=== PATIENT | female | born 1940 | race African-American/Black ===

== ENCOUNTER 2017-03-17 12:13 | Inpatient (IN) | payer OTHER ==
[~2017-03-17] VITALS: Ht 162.6 cm; Wt 81.6 kg
[2017-03-17] MEDS ORDERED: ACETAMINOPHEN 500 MG TABLET PO ONE (12:30)
[2017-03-17] MEDS ORDERED: IV NORMAL SALINE 1000ML BAG 1,000 ML IV ONE (12:30)
[2017-03-17 12:33] LABS: BILIRUBIN,URINE NEGATIVE (NEG); GLUCOSE,URINE NEGATIVE (NEG); NITRITE,URINE POSITIVE (NEG); PH,URINE 7.5; PROTEIN,URINE 30 mg/dL (NEG-TRACE)
--- NOTE | 2017-03-17 12:33 | PHYS DOC ---
Past Medical History Past Medical History: Diabetes-Type II, Other Additional Past Medical Histor: MS Past Surgical History: Appendectomy, Cholecystectomy, Hysterectomy Alcohol Use: None Drug Use: None Adult General Chief Complaint Chief Complaint: WEAKNESS/GENERALIZED HPI HPI Patient is a 77 year old female who presents with history of multiple sclerosis one-day history of increased general weakness and fever; denies any nausea vomiting diarrhea; denies cough shortness of breath; does have an indwelling Bñauelos catheter this was changed 3 days ago. PCP: ? Opole ? Neuro: Denis Review of Systems Review of Systems Constitutional: Denies fever or chills [] Eyes: Denies change in visual acuity, redness, or eye pain [] HENT: Denies nasal congestion or sore throat [] Respiratory: Denies cough or shortness of breath [] Cardiovascular: No additional information not addressed in HPI [] GI: Denies abdominal pain, nausea, vomiting, bloody stools or diarrhea [] : Denies dysuria or hematuria [] Musculoskeletal: Denies back pain or joint pain [] Integument: Denies rash or skin lesions [] Neurologic: Denies headache, focal weakness or sensory changes [] Endocrine: Denies polyuria or polydipsia [] All other systems were reviewed and found to be within normal limits, except as documented in this note. Current Medications Current Medications Current Medications Medications (Trade) Dose Ordered Sig/Claudio Start Time Stop Time Status Last Admin Dose Admin Acetaminophen (Tylenol) 1,000 mg 1X ONCE 03/17/17 12:30 03/17/17 12:31 DC 03/17/17 13:21 1,000 MG Ceftriaxone Sodium 50 ml @ 100 mls/hr 1X ONCE 03/17/17 13:30 03/17/17 13:59 Morphine Sulfate 2 mg PRN Q2HR PRN 03/17/17 13:30 03/18/17 13:29 Ondansetron HCl (Zofran) 4 mg PRN Q8HRS PRN 03/17/17 13:30 03/18/17 13:29 Sodium Chloride 1,000 ml @ 1,000 mls/hr 1X ONCE 03/17/17 12:30 03/17/17 13:29 DC Allergies Allergies Allergies Coded Allergies Type Severity Reaction Last Updated Verified amoxicillin Allergy Mild ITCH 03/17/17 Yes Physical Exam Physical Exam Constitutional: Well developed, well nourished, no acute distress, non-toxic appearance. [] HENT: Normocephalic, atraumatic, bilateral external ears normal, oropharynx moist, no oral exudates, nose normal. [] Eyes: PERRLA, EOMI, conjunctiva normal, no discharge. [] Neck: Normal range of motion, no tenderness, supple, no stridor. [] Cardiovascular:Heart regular rhythm, no murmur; Tachycardia[] Lungs & Thorax: Bilateral breath sounds clear to auscultation [] Abdomen: Bowel sounds normal, soft, no tenderness, no masses, no pulsatile masses. [] Skin: Warm, dry, no erythema, no rash. [] Back: No tenderness, no CVA tenderness. [] Extremities: No tenderness, no cyanosis, no clubbing, ROM intact, no edema. [] Neurologic: Alert and oriented X 3, normal motor function except some baseline weakness in the lower extremities left greater than right, normal sensory function, no focal deficits noted. [] Psychologic: Affect normal, judgement normal, mood normal. [] Current Patient Data Vital Signs Vital Signs Date Time Temp Pulse Resp B/P (MAP) Pulse Ox O2 Delivery O2 Flow Rate FiO2 03/17/17 12:45 115 20 97 03/17/17 12:19 100.5 146/72 (96) Room Air 100.5 Lab Values Laboratory Tests Test 03/17/17 12:22 03/17/17 12:50 03/17/17 13:20 Urine Collection Type U cath Urine Color Yellow Urine Clarity Cloudy Urine pH 7.5 Urine Specific [place] 1.020 Urine Protein 30 mg/dL (NEG-TRACE) Urine Glucose (UA) Negative mg/dL (NEG) Urine Ketones (Stick) Negative mg/dL (NEG) Urine Blood Small (NEG) Urine Nitrite Positive (NEG) Urine Bilirubin Negative (NEG) Urine Urobilinogen Dipstick 1.0 mg/dL (0.2 mg/dL) Urine Leukocyte Esterase Large (NEG) Urine RBC 3-5 /HPF (0-2) Urine WBC >40 /HPF (0-4) Urine Transitional Epithelial Cells Occ /LPF Urine Bacteria Many /HPF (0-FEW) Sodium Level 138 mmol/L (136-145) Potassium Level 3.8 mmol/L (3.5-5.1) Chloride Level 102 mmol/L (98-107) Carbon Dioxide Level 27 mmol/L (21-32) Anion Gap 9 (6-14) Blood Urea Nitrogen 15 mg/dL (7-20) Creatinine 0.9 mg/dL (0.6-1.0) Estimated GFR (Cockcroft-Gault) 73.7 BUN/Creatinine Ratio 17 (6-20) Glucose Level 171 mg/dL (70-99) H Lactic Acid Level 3.2 mmol/L (0.4-2.0) H Calcium Level 9.2 mg/dL (8.5-10.1) Total Bilirubin 0.3 mg/dL (0.2-1.0) Aspartate Amino Transferase (AST) 20 U/L (15-37) Alanine Aminotransferase (ALT) 20 U/L (14-59) Alkaline Phosphatase 79 U/L (46-116) Total Protein 7.4 g/dL (6.4-8.2) Albumin 3.0 g/dL (3.4-5.0) L Albumin/Globulin Ratio 0.7 (1.0-1.7) L White Blood Count 10.8 x10^3/uL (4.0-11.0) Red Blood Count 4.58 x10^6/uL (3.50-5.40) Hemoglobin 12.7 g/dL (12.0-15.5) Hematocrit 40.2 % (36.0-47.0) Mean Corpuscular Volume 88 fL (79-100) Mean Corpuscular Hemoglobin 28 pg (25-35) Mean Corpuscular Hemoglobin Concent 32 g/dL (31-37) Red Cell Distribution Width 14.5 % (11.5-14.5) Platelet Count 262 x10^3/uL (140-400) Neutrophils (%) (Auto) 92 % (31-73) H Lymphocytes (%) (Auto) 4 % (24-48) L Monocytes (%) (Auto) 3 % (0-9) Eosinophils (%) (Auto) 2 % (0-3) Basophils (%) (Auto) 0 % (0-3) Neutrophils # (Auto) 9.9 x10^3uL (1.8-7.7) H Lymphocytes # (Auto) 0.4 x10^3/uL (1.0-4.8) L Monocytes # (Auto) 0.3 x10^3/uL (0.0-1.1) Eosinophils # (Auto) 0.2 x10^3/uL (0.0-0.7) Basophils # (Auto) 0.0 x10^3/uL (0.0-0.2) Platelet Estimate Pending Laboratory Tests 03/17/17 13:20 Laboratory Tests 03/17/17 12:50 EKG EKG EKG sinus tachycardia rate 115 no STEMI QTC 431 my interpretation[] Radiology/Procedures Radiology/Procedures Chest x-ray no priors for comparison apparent elevated right hemidiaphragm no evidence of heart failure my interpretation[] Course & Med Decision Making Course & Med Decision Making Pertinent Labs and Imaging studies reviewed. (See chart for details) Labs demonstrated findings consistent with urinary tract infection. No pneumonia seen. Patient given IV fluids and Rocephin IV. Discussed case with the hospitalist Dr. Willson who agrees to admit the patient.[] Dragon Disclaimer Dragon Disclaimer This electronic medical record was generated, in whole or in part, using a voice recognition dictation system. Departure Departure Impression: Primary Impression: UTI (urinary tract infection) Additional Impressions: Fever Multiple sclerosis exacerbation Disposition: ADMITTED INPATIENT Admitting Physician: Other Condition: STABLE Problem Qualifiers ANASTASIA PEDRAZA MD Mar 17, 2017 12:33
[2017-03-17 12:40] LABS: BACTERIA,URINE MANY /HPF (0-FEW); WBC,URINE >40 /HPF (0-4)
--- NOTE | 2017-03-17 12:48 | RAD ---
Single AP chest radiograph 03/17/2017 Clinical indication: Fever, weakness Comparison: None. Findings: Mild elevation of the right hemidiaphragm. Cardiac and mediastinal silhouettes are within normal limits. There is mild bibasal atelectasis. No pleural effusion or pneumothorax Impression: Elevation of the right hemidiaphragm without evidence of consolidating pneumonia.
[2017-03-17 13:15] LABS: CALCIUM 9.2 mg/dL (8.5-10.1); CREATININE 0.9 mg/dL (0.6-1.0); GFR 73.7; POTASSIUM 3.8 mmol/L (3.5-5.1)
[2017-03-17 13:28] LABS: ALBUMIN/GLOBULIN RATIO 0.7 (1.0-1.7); TOTAL BILIRUBIN 0.3 mg/dL (0.2-1.0); TOTAL PROTEIN 7.4 g/dL (6.4-8.2)
[2017-03-17] MEDS ORDERED: MORPHINE SULFATE 4 MG/ML DISP.SYRIN. IV PRN (13:30)
[2017-03-17] MEDS ORDERED: ONDANSETRON PF 4 MG/2 ML VIAL. IV PRN (13:30)
[2017-03-17 13:31] LABS: BASO % 0 % (0-3); EOS % 2 % (0-3); HEMATOCRIT 40.2 % (36.0-47.0); HEMOGLOBIN 12.7 g/dL (12.0-15.5); LYMPH # 0.4 x10^3/uL (1.0-4.8); LYMPH % 4 % (24-48); MEAN CORPUSCULAR HEMOGLOBIN 28 pg (25-35); MEAN CORPUSCULAR HGB CONC 32 g/dL (31-37); MEAN CORPUSCULAR VOLUME 88 fL (79-100); MONO % 3 % (0-9); NEUT % 92 % (31-73); PLATELET COUNT 262 x10^3/uL (140-400); RED BLOOD COUNT 4.58 x10^6/uL (3.50-5.40); RED CELL DISTRIBUTION WIDTH 14.5 % (11.5-14.5); WHITE BLOOD COUNT 10.8 x10^3/uL (4.0-11.0)
--- NOTE | 2017-03-17 13:58 | EKG ---
[facility] [address] [place] [address] Test Date: 2017-03-17 Test Time: 13:09:03 Pat Name: MARVIN VARMA Department: Room: Gender: F [employer] Technician: : 1940 Requested By: ANASTASIA PEDRAZA Order Number: [id number] Reading MD: Dom Murray MD Measurements Intervals [place] Rate: 115 P: 26 NV: 166 QRS: 52 QRSD: 90 T: 29 QT: 310 QTc: 431 Interpretive Statements SINUS TACHYCARDIA NON-SPECIFIC ST/T CHANGES Electronically Signed On 03-17-2017 15:36:52 DIRECTOR DATABASE by Dom Murray MD
[2017-03-17] MEDS ORDERED: DEXTROSE 50% 25 GM / 50ML DISP.SYRIN. IV PRN (15:00)
[2017-03-17 15:30] VITALS: BP 123/72
[2017-03-17] MEDS ORDERED: METF500T4 PO (15:44)
[2017-03-17] MEDS ORDERED: MIRA50TA PO (15:45)
[2017-03-17] MEDS ORDERED: BACL10TA PO (15:45)
[2017-03-17] MEDS ORDERED: SOLI10TA2 PO (15:45)
[2017-03-17] MEDS ORDERED: ATOR10TA60 PO (15:46)
[2017-03-17] MEDS ORDERED: OMEP20CA9 PO (15:46)
[2017-03-17] MEDS ORDERED: ALLO100T PO (15:46)
[2017-03-17] MEDS: metFORMIN 500 MG TABLET PO SCH (17:04)
--- NOTE | 2017-03-17 17:17 | HP ---
ADMIT DATE: 03/17/2017 CHIEF COMPLAINT: Generalized weakness, confusion. HISTORY OF PRESENT ILLNESS: The patient is a 77-year-old -[place] woman with history of multiple sclerosis and resultant suprapubic catheter, who presented to the Emergency Room with her family with increased confusion. She relates that she was not feeling well yesterday. Apparently had a fever of 103 last night and this morning "did not make sense" to her family. She does not recall further details. She feels much better now, but is not sure of her memory as to events or distant medical issues. PAST MEDICAL HISTORY: Diabetes mellitus, multiple sclerosis, suprapubic catheter x 2 years. PAST SURGICAL HISTORY: She is status post appendectomy, cholecystectomy, hysterectomy. FAMILY HISTORY: Two brothers are fairly healthy. SOCIAL HISTORY: Lives with her family and no toxic habits. ALLERGIES: AMOXICILLIN. HOME MEDICATIONS: MAR reconciled with home meds. REVIEW OF SYSTEMS: The patient denies any pelvic pain. Denies any nausea, vomiting, diarrhea. Denies any shortness of breath or cough. Rest of organ system review is likewise unrevealing. PHYSICAL EXAMINATION: VITAL SIGNS: Show a blood pressure of 123/72, heart rate of 104, respiratory rate at 18. Of note, tachycardia at admit of 120 and temperature of 100.5 are noted. GENERAL: This is a 77-year-old well-nourished -[place] woman, alert and oriented, in no acute distress. HEENT: Shows no scleral icterus. NECK: Supple. LUNGS: Clear. HEART: Mildly tachycardic. No murmurs appreciated. ABDOMEN: Positive bowel sounds, suprapubic catheter in the pelvis. EXTREMITIES: Show decreased muscle mass. SKIN: Warm, soft and dry. LABORATORY DATA: CBC with a WBC of 10.8, hemoglobin 12.7, platelets of 262. Differential with 92% neutrophils. Chemistries with a BUN and creatinine of 15 and 0.9, normal electrolytes, glucose at 171. LFTs within normal, albumin 3.0. Lactate 3.2. Urine with greater than 40 WBC and many bacteria. Imaging studies with a chest x-ray shows elevation of the right hemidiaphragm without evidence of consolidating pneumonia. ASSESSMENT AND PLAN: The patient is a 77-year-old woman with multiple sclerosis and resultant suprapubic catheter placement, who now presents with fevers. In absence of any other infectious source, pyuria is more likely the sign of infection rather than just colonization. We will treat her with broad spectrum antibiotics as she has had previous infections with gram-negative rods. We will await culture for determination of final antibiotic regimen. I will place on IV fluids. Cautiously she does have secondary prevention medications on her list although is unaware of any heart history. Monitor her vital signs including temperature closely. She will have Tylenol p.r.n. for fevers over 100.4. We will continue all her other home medications in the meantime. PRIYA PEREZ MD DR: CALLIE/nts JOB#: [id number] / [id number] LUCY
[2017-03-17 17:45] LABS: % EOS 1 % (0-5); OVALOCYTES OCC; PLT ESTIMATE ADEQUATE (ADEQUATE); POLYCHROMASIA SLIGHT
[2017-03-17 19:00] VITALS: BP 113/62
[2017-03-17] MEDS: OXYBUTYNIN CHLORIDE 5 MG TABLET PO SCH (20:36)
[2017-03-17] MEDS: BACLOFEN 10 MG TABLET. PO SCH (20:36)
[2017-03-17 23:00] VITALS: BP 125/64
[2017-03-17] MEDS: POTASSIUM CL 20MEQ D5-0.45NACL 1,000 ML IV SCH (23:45)
[2017-03-18 03:57] VITALS: BP 139/76
[2017-03-18 07:00] VITALS: BP 123/72
[2017-03-18] MEDS: ALLOPURINOL 100 MG TABLET. PO SCH (07:46)
[2017-03-18] MEDS: ATORVASTATIN CALCIUM 10 MG TABLET. PO SCH (07:46)
[2017-03-18] MEDS: OXYBUTYNIN CHLORIDE 5 MG TABLET PO SCH ×3 (07:46→21:38)
[2017-03-18] MEDS: BACLOFEN 10 MG TABLET. PO SCH ×3 (07:46→21:38)
[2017-03-18] MEDS: metFORMIN 500 MG TABLET PO SCH ×2 (07:46→16:05)
[2017-03-18] MEDS: PANTOPRAZOLE 40 MG TABLET.DR. PO SCH (07:46)
[2017-03-18] MEDS ORDERED: NON FORMULARY ITEM (Mirabegron (Myrbetriq) 50 MG) PO SCH (09:00)
[2017-03-18] MEDS ORDERED: CEFEPIME HCL 1 GM in IV DEXTROSE 5% 50 ML IV SCH (09:15)
--- NOTE | 2017-03-18 09:15 | PDOC ---
PROGRESS NOTES Chief Complaint Chief Complaint Fever ASSESSMENT AND PLAN: 1. Suspected UTI: complicated with suprapubic cath in place. broadspectrum Abx empirically until culture results available. d/w Dr Simon 2. Sepsis: fever, tachycardia persisting. no hypotension. recheck lactate 3. Leukocytosis: borderline w/o L shift. reacive, monitor 4. Encephalopathy: toxic from urosepsis. much improved 5. DM2: well controlled on oral home regimen 6. HLD: on statin 7. MS: no meds History of Present Illness History of Present Illness sitting in chair, feels better, clearer thinking Vitals Vitals Vital Signs Date Time Temp Pulse Resp B/P (MAP) Pulse Ox O2 Delivery O2 Flow Rate FiO2 03/18/17 07:24 Room Air 03/18/17 07:00 99.3 94 16 123/72 (89) 97 99.3 Physical Exam General: Alert, Oriented X3, Cooperative, No acute distress Heart: Regular rate Lungs: Clear Abdomen: Normal bowel sounds Extremities: Other (no edema. arthritic changes) Skin: No rashes Labs LABS Laboratory Tests Test 03/17/17 12:22 03/17/17 12:50 03/17/17 13:20 03/17/17 18:44 Urine Collection Type U cath Urine Color Yellow Urine Clarity Cloudy Urine pH 7.5 Urine Specific [place] 1.020 Urine Protein 30 mg/dL (NEG-TRACE) Urine Glucose (UA) Negative mg/dL (NEG) Urine Ketones (Stick) Negative mg/dL (NEG) Urine Blood Small (NEG) Urine Nitrite Positive (NEG) Urine Bilirubin Negative (NEG) Urine Urobilinogen Dipstick 1.0 mg/dL (0.2 mg/dL) Urine Leukocyte Esterase Large (NEG) Urine RBC 3-5 /HPF (0-2) Urine WBC >40 /HPF (0-4) Urine Transitional Epithelial Cells Occ /LPF Urine Bacteria Many /HPF (0-FEW) Sodium Level 138 mmol/L (136-145) Potassium Level 3.8 mmol/L (3.5-5.1) Chloride Level 102 mmol/L (98-107) Carbon Dioxide Level 27 mmol/L (21-32) Anion Gap 9 (6-14) Blood Urea Nitrogen 15 mg/dL (7-20) Creatinine 0.9 mg/dL (0.6-1.0) Estimated GFR (Cockcroft-Gault) 73.7 BUN/Creatinine Ratio 17 (6-20) Glucose Level 171 mg/dL (70-99) Lactic Acid Level 3.2 mmol/L (0.4-2.0) Calcium Level 9.2 mg/dL (8.5-10.1) Total Bilirubin 0.3 mg/dL (0.2-1.0) Aspartate Amino Transf (AST/SGOT) 20 U/L (15-37) Alanine Aminotransferase (ALT/SGPT) 20 U/L (14-59) Alkaline Phosphatase 79 U/L (46-116) Troponin I Quantitative < 0.017 ng/mL (0.000-0.055) Total Protein 7.4 g/dL (6.4-8.2) Albumin 3.0 g/dL (3.4-5.0) Albumin/Globulin Ratio 0.7 (1.0-1.7) White Blood Count 10.8 x10^3/uL (4.0-11.0) Red Blood Count 4.58 x10^6/uL (3.50-5.40) Hemoglobin 12.7 g/dL (12.0-15.5) Hematocrit 40.2 % (36.0-47.0) Mean Corpuscular Volume 88 fL (79-100) Mean Corpuscular Hemoglobin 28 pg (25-35) Mean Corpuscular Hemoglobin Concent 32 g/dL (31-37) Red Cell Distribution Width 14.5 % (11.5-14.5) Platelet Count 262 x10^3/uL (140-400) Neutrophils (%) (Auto) 92 % (31-73) Lymphocytes (%) (Auto) 4 % (24-48) Monocytes (%) (Auto) 3 % (0-9) Eosinophils (%) (Auto) 2 % (0-3) Basophils (%) (Auto) 0 % (0-3) Neutrophils # (Auto) 9.9 x10^3uL (1.8-7.7) Lymphocytes # (Auto) 0.4 x10^3/uL (1.0-4.8) Monocytes # (Auto) 0.3 x10^3/uL (0.0-1.1) Eosinophils # (Auto) 0.2 x10^3/uL (0.0-0.7) Basophils # (Auto) 0.0 x10^3/uL (0.0-0.2) Segmented Neutrophils % 92 % (35-66) Lymphocytes % 6 % (24-48) Monocytes % 1 % (0-10) Eosinophils % 1 % (0-5) Platelet Estimate Adequate (ADEQUATE) Large Platelets Occ Polychromasia Slight Ovalocytes Occ Glucose (Fingerstick) 139 mg/dL (70-99) Test 03/17/17 20:18 03/18/17 07:07 Glucose (Fingerstick) 151 mg/dL (70-99) 150 mg/dL (70-99) PRIYA PEREZ MD Mar 18, 2017 09:15
--- NOTE | 2017-03-18 09:33 | PDOC ---
Infectious Disease Note ROS ROS Vital Sign Vital Signs Vital Signs Date Time Temp Pulse Resp B/P (MAP) Pulse Ox O2 Delivery O2 Flow Rate FiO2 03/18/17 07:24 Room Air 03/18/17 07:00 99.3 94 16 123/72 (89) 97 99.3 Labs Lab Laboratory Tests Test 03/17/17 12:22 03/17/17 12:50 03/17/17 13:20 03/17/17 18:44 Urine Collection Type U cath Urine Color Yellow Urine Clarity Cloudy Urine pH 7.5 Urine Specific [place] 1.020 Urine Protein 30 mg/dL (NEG-TRACE) Urine Glucose (UA) Negative mg/dL (NEG) Urine Ketones (Stick) Negative mg/dL (NEG) Urine Blood Small (NEG) Urine Nitrite Positive (NEG) Urine Bilirubin Negative (NEG) Urine Urobilinogen Dipstick 1.0 mg/dL (0.2 mg/dL) Urine Leukocyte Esterase Large (NEG) Urine RBC 3-5 /HPF (0-2) Urine WBC >40 /HPF (0-4) Urine Transitional Epithelial Cells Occ /LPF Urine Bacteria Many /HPF (0-FEW) Sodium Level 138 mmol/L (136-145) Potassium Level 3.8 mmol/L (3.5-5.1) Chloride Level 102 mmol/L (98-107) Carbon Dioxide Level 27 mmol/L (21-32) Anion Gap 9 (6-14) Blood Urea Nitrogen 15 mg/dL (7-20) Creatinine 0.9 mg/dL (0.6-1.0) Estimated GFR (Cockcroft-Gault) 73.7 BUN/Creatinine Ratio 17 (6-20) Glucose Level 171 mg/dL (70-99) Lactic Acid Level 3.2 mmol/L (0.4-2.0) Calcium Level 9.2 mg/dL (8.5-10.1) Total Bilirubin 0.3 mg/dL (0.2-1.0) Aspartate Amino Transf (AST/SGOT) 20 U/L (15-37) Alanine Aminotransferase (ALT/SGPT) 20 U/L (14-59) Alkaline Phosphatase 79 U/L (46-116) Troponin I Quantitative < 0.017 ng/mL (0.000-0.055) Total Protein 7.4 g/dL (6.4-8.2) Albumin 3.0 g/dL (3.4-5.0) Albumin/Globulin Ratio 0.7 (1.0-1.7) White Blood Count 10.8 x10^3/uL (4.0-11.0) Red Blood Count 4.58 x10^6/uL (3.50-5.40) Hemoglobin 12.7 g/dL (12.0-15.5) Hematocrit 40.2 % (36.0-47.0) Mean Corpuscular Volume 88 fL (79-100) Mean Corpuscular Hemoglobin 28 pg (25-35) Mean Corpuscular Hemoglobin Concent 32 g/dL (31-37) Red Cell Distribution Width 14.5 % (11.5-14.5) Platelet Count 262 x10^3/uL (140-400) Neutrophils (%) (Auto) 92 % (31-73) Lymphocytes (%) (Auto) 4 % (24-48) Monocytes (%) (Auto) 3 % (0-9) Eosinophils (%) (Auto) 2 % (0-3) Basophils (%) (Auto) 0 % (0-3) Neutrophils # (Auto) 9.9 x10^3uL (1.8-7.7) Lymphocytes # (Auto) 0.4 x10^3/uL (1.0-4.8) Monocytes # (Auto) 0.3 x10^3/uL (0.0-1.1) Eosinophils # (Auto) 0.2 x10^3/uL (0.0-0.7) Basophils # (Auto) 0.0 x10^3/uL (0.0-0.2) Segmented Neutrophils % 92 % (35-66) Lymphocytes % 6 % (24-48) Monocytes % 1 % (0-10) Eosinophils % 1 % (0-5) Platelet Estimate Adequate (ADEQUATE) Large Platelets Occ Polychromasia Slight Ovalocytes Occ Glucose (Fingerstick) 139 mg/dL (70-99) Test 03/17/17 20:18 03/18/17 07:07 Glucose (Fingerstick) 151 mg/dL (70-99) 150 mg/dL (70-99) Objective Assessment Fever Lactic acidosis UTI - POA Amoxicillin allergy - rash Acute Encephalopathy - better DM MS Plan Plan of Care States suprapubic changed last week but depending on cultures may need to be changed again Despite improvement she is at risk for resistance will begin Cefepime and Zyvox F/u labs and cults d/w micro at cult in progress D/w Dr. Willson Thank you # [phone] SARHA DE LA TORRE MD Mar 18, 2017 09:33
[2017-03-18] MEDS: CEFEPIME HCL IV Push 1 GM VIAL. IVP SCH ×3 (09:44→21:38)
[2017-03-18] MEDS: LINEZOLID 600 MG TABLET PO SCH ×2 (09:44→21:38)
[2017-03-18 09:53] LABS: BASO % 0 % (0-3); EOS % 2 % (0-3); HEMATOCRIT 37.9 % (36.0-47.0); HEMOGLOBIN 12.2 g/dL (12.0-15.5); LYMPH # 0.9 x10^3/uL (1.0-4.8); LYMPH % 13 % (24-48); MEAN CORPUSCULAR HEMOGLOBIN 28 pg (25-35); MEAN CORPUSCULAR HGB CONC 32 g/dL (31-37); MEAN CORPUSCULAR VOLUME 87 fL (79-100); MONO % 8 % (0-9); NEUT % 77 % (31-73); PLATELET COUNT 232 x10^3/uL (140-400); RED BLOOD COUNT 4.34 x10^6/uL (3.50-5.40); RED CELL DISTRIBUTION WIDTH 14.2 % (11.5-14.5); WHITE BLOOD COUNT 6.9 x10^3/uL (4.0-11.0)
[2017-03-18 10:00] LABS: ALBUMIN 2.8 g/dL (3.4-5.0); ALBUMIN/GLOBULIN RATIO 0.7 (1.0-1.7); CALCIUM 8.6 mg/dL (8.5-10.1); CREATININE 0.9 mg/dL (0.6-1.0); GFR 73.7; POTASSIUM 3.9 mmol/L (3.5-5.1); TOTAL BILIRUBIN 0.3 mg/dL (0.2-1.0)
[2017-03-18 11:00] VITALS: BP 120/70
[2017-03-18] MEDS: POTASSIUM CL 20MEQ D5-0.45NACL 1,000 ML IV SCH (16:06)
[2017-03-18 16:36] VITALS: BP 106/59
[2017-03-18 19:00] VITALS: BP 101/65
[2017-03-18 23:27] VITALS: BP 105/64
[2017-03-19] VITALS (11 sets, daily range): BP systolic 64–131; BP diastolic 48–77
--- NOTE | 2017-03-19 05:19 | CONS ---
DATE OF CONSULTATION: LOCATION: Room 672. REQUESTING PHYSICIAN: Dr. Willson. REASON FOR CONSULTATION: UTI. HISTORY OF PRESENT ILLNESS: The patient is a very pleasant 77-year-old female with a history of diabetes as well as multiple sclerosis. She does have a suprapubic catheter that was placed at , she states she has had it for several years and it was changed last week without any incident. This past Thursday, she states she was feeling fairly well, but then became acutely ill, had a temperature of 100.8 at home and complained of chills. She denied any headache, no sinus issues, no sore throat or cough or chest pain. No nausea, no vomiting, no diarrhea, dysuria, no rash, there was no joint inflammation. Then, she does not remember much, but she became acutely confused and was brought to [facility] on 03/17/2017. She had a white count of 10.8, but had 92% neutrophils. Creatinine was 0.9, glucose was 171. However, she had a lactic acid of 3.2. Urinalysis was concerning for urinary tract infection. Chest x-ray was performed, had some elevation of right hemidiaphragm without evidence of pneumonia. She was given a dose of Rocephin, placed on IV fluids and admitted to the hospital. This morning, the patient is alert, states she is feeling better. She has eaten some breakfast and denies any further complications. PAST MEDICAL HISTORY: Positive for diabetes, she is unable to state how long she has had this. Also, there is a longstanding history of multiple sclerosis and the suprapubic catheter. PAST SURGICAL HISTORY: Positive for appendectomy, cholecystectomy, hysterectomy, and the suprapubic catheter placement. REVIEW OF SYSTEMS: Otherwise negative except for mentioned above. ALLERGIES: LISTED AMOXICILLIN, WHICH CAUSES A RASH. SOCIAL HISTORY: She is . No tobacco, no alcohol. She has no pets at home. FAMILY HISTORY: She believes her father had some type of thyroid disease, but denies any other complications. She denies any diabetes within the family. CURRENT MEDICATIONS: She did receive a dose of Rocephin, allopurinol, Lipitor, baclofen, metformin, Protonix. Other meds are available and reviewed in the chart. PHYSICAL EXAMINATION: VITAL SIGNS: T-max has been 100.5, currently 99.3, pulse 94, respirations 16, blood pressure 123/72, satting 97% on room air. CONSTITUTIONAL: She is a very pleasant lady. She is in no acute distress. She appears comfortable, sitting upright in bed. HEENT: She has normal conjunctivae. Oral cavity, oropharynx was clear. NECK: Supple, no JVD. LUNGS: Clear to auscultation bilaterally. HEART: S1, S2. ABDOMEN: Soft, nontender, nondistended. Suprapubic without signs of any complications surrounding it. There is no pain. There is no erythema. EXTREMITIES: No clubbing or cyanosis. No gross edema. SKIN: Warm to touch without signs of rash. NEUROLOGIC: Her psychiatric affect was very pleasant. LABORATORY DATA: White count 10.8, hemoglobin 12.7, platelets 262, segs were 92, lymphs were 6. Glucose 150. Again, lactic acid was 3.2. Urinalysis concerning for urinary tract infection. Chest x-ray reviewed in the history of present illness. IMPRESSION: 1. Fever. 2. Lactic acidosis. 3. Urinary tract infection present on admission. 4. AMOXICILLIN ALLERGY, CAUSES RASH. 5. Acute encephalopathy has improved. 6. Diabetes. 7. Multiple sclerosis. RECOMMENDATIONS: The patient typically goes to for her care; this is her first time here. She believes she has had urinary tract infections in the past; however, she cannot remember any particular organisms like a staph or a strep or an E. coli. Again, she thought that her suprapubic was changed last week. I called Microbiology this morning and the cultures are in progress. She seems to have improved, but continues to have low-grade fevers and she is likely at risk for resistant bacteria, therefore we will change to cefepime as well as Zyvox and follow up on her labs and cultures. Dr. Willson, thank you for allowing us to participate in this patient's care. Should you have further questions, please do not hesitate to contact me. I did discuss with Dr. Willson. SARAH DE LA TORRE MD DR: KERLINE/eleanor JOB#: [id number] / [id number]
[2017-03-19 06:49] LABS: BASO % 0 % (0-3); EOS % 3 % (0-3); HEMATOCRIT 35.9 % (36.0-47.0); HEMOGLOBIN 11.5 g/dL (12.0-15.5); LYMPH # 1.6 x10^3/uL (1.0-4.8); LYMPH % 23 % (24-48); MEAN CORPUSCULAR HEMOGLOBIN 28 pg (25-35); MEAN CORPUSCULAR HGB CONC 32 g/dL (31-37); MEAN CORPUSCULAR VOLUME 87 fL (79-100); MONO % 10 % (0-9); NEUT % 65 % (31-73); PLATELET COUNT 196 x10^3/uL (140-400); RED BLOOD COUNT 4.11 x10^6/uL (3.50-5.40); RED CELL DISTRIBUTION WIDTH 14.4 % (11.5-14.5); WHITE BLOOD COUNT 6.9 x10^3/uL (4.0-11.0)
[2017-03-19 06:54] LABS: CALCIUM 8.8 mg/dL (8.5-10.1); CREATININE 0.9 mg/dL (0.6-1.0); GFR 73.7; POTASSIUM 4.3 mmol/L (3.5-5.1)
[2017-03-19] MEDS: CEFEPIME HCL IV Push 1 GM VIAL. IVP SCH (08:44)
[2017-03-19] MEDS: BACLOFEN 10 MG TABLET. PO SCH ×4 (08:59→21:45)
[2017-03-19] MEDS: PANTOPRAZOLE 40 MG TABLET.DR. PO SCH (08:59)
[2017-03-19] MEDS: LINEZOLID 600 MG TABLET PO SCH (08:59)
[2017-03-19] MEDS: OXYBUTYNIN CHLORIDE 5 MG TABLET PO SCH ×4 (08:59→21:45)
[2017-03-19] MEDS: metFORMIN 500 MG TABLET PO SCH ×2 (08:59→17:43)
[2017-03-19] MEDS: ALLOPURINOL 100 MG TABLET. PO SCH (08:59)
--- NOTE | 2017-03-19 10:07 | PDOC ---
Infectious Disease Note Subjective Subjective Better. Had a good a breakfast Feels back to baseline ROS ROS GEN: Denies fevers, chills, sweats HEENT: Denies blurred vision, sore throat CV: Denies chest pain RESP: Denies shortness of air, cough GI: Denies n/v/d Suprapubic NEURO: Denies confusion, dizziness Vital Sign Vital Signs Vital Signs Date Time Temp Pulse Resp B/P (MAP) Pulse Ox O2 Delivery O2 Flow Rate FiO2 03/19/17 07:31 Room Air 03/19/17 07:00 98.1 97 16 98/56 (70) 96 98.1 Physical Exam PHYSICAL EXAM GENERAL: NAD, Alert HEENT: PERRL, OC/OP - clear NECK: Supple, no JVD, no LN LUNGS: Clear HEART: S1S2, no gallop, no murmur ABD: Soft, NT, no organomegaly, no rebound Suprapubic EXT: Trace LUE edema, no cyanosis TIMBER FALLER: Alert, oriented x 3, no focal neurologic deficit SKIN: No rash IV: ok Labs Lab Laboratory Tests Test 03/18/17 11:40 03/18/17 17:03 03/19/17 05:50 03/19/17 07:11 Glucose (Fingerstick) 178 mg/dL (70-99) 204 mg/dL (70-99) 141 mg/dL (70-99) White Blood Count 6.9 x10^3/uL (4.0-11.0) Red Blood Count 4.11 x10^6/uL (3.50-5.40) Hemoglobin 11.5 g/dL (12.0-15.5) Hematocrit 35.9 % (36.0-47.0) Mean Corpuscular Volume 87 fL (79-100) Mean Corpuscular Hemoglobin 28 pg (25-35) Mean Corpuscular Hemoglobin Concent 32 g/dL (31-37) Red Cell Distribution Width 14.4 % (11.5-14.5) Platelet Count 196 x10^3/uL (140-400) Neutrophils (%) (Auto) 65 % (31-73) Lymphocytes (%) (Auto) 23 % (24-48) Monocytes (%) (Auto) 10 % (0-9) Eosinophils (%) (Auto) 3 % (0-3) Basophils (%) (Auto) 0 % (0-3) Neutrophils # (Auto) 4.5 x10^3uL (1.8-7.7) Lymphocytes # (Auto) 1.6 x10^3/uL (1.0-4.8) Monocytes # (Auto) 0.7 x10^3/uL (0.0-1.1) Eosinophils # (Auto) 0.2 x10^3/uL (0.0-0.7) Basophils # (Auto) 0.0 x10^3/uL (0.0-0.2) Sodium Level 139 mmol/L (136-145) Potassium Level 4.3 mmol/L (3.5-5.1) Chloride Level 104 mmol/L (98-107) Carbon Dioxide Level 26 mmol/L (21-32) Anion Gap 9 (6-14) Blood Urea Nitrogen 14 mg/dL (7-20) Creatinine 0.9 mg/dL (0.6-1.0) Estimated GFR (Cockcroft-Gault) 73.7 Glucose Level 129 mg/dL (70-99) Calcium Level 8.8 mg/dL (8.5-10.1) Objective Assessment Fever - better Lactic acidosis UTI - POA Amoxicillin allergy - rash Acute Encephalopathy - better DM MS Plan Plan of Care d/w micro - cult with multiple organisms. Was improving with Rocephin Dose Rocephin now. need to avoid quinolones as exacerbates MS for can d/c home on Bactrim DS to start 03/20 for 7 days Welcome to F/u in ID office in one week [phone] D/w SARAH Ingram MD Mar 19, 2017 10:07
[2017-03-19] MEDS: cefTRIAXone IV Push 1 GM VIAL. IVP SCH (12:42)
[2017-03-19] MEDS ORDERED: ONDANSETRON PF 4 MG/2 ML VIAL. IV PRN (13:15)
--- NOTE | 2017-03-19 14:18 | PDOC ---
PROGRESS NOTES Chief Complaint Chief Complaint Fever ASSESSMENT AND PLAN: 1. Suspected UTI: complicated with suprapubic cath in place. broadspectrum Abx empirically until culture results available. d/w Dr Simon 2. Sepsis: fever, tachycardia persisting. no hypotension. recheck lactate 3. Leukocytosis: borderline w/o L shift. reactive, monitor 4. Encephalopathy: toxic from urosepsis. much improved 5. DM2: well controlled on oral home regimen 6. HLD: on statin 7. MS: no meds meeting w/ pt and family: agreeable to acute rehab. will arrange in AM History of Present Illness History of Present Illness feels fien. needs max assist with transfer Vitals Vitals Vital Signs Date Time Temp Pulse Resp B/P (MAP) Pulse Ox O2 Delivery O2 Flow Rate FiO2 03/19/17 11:00 98.2 103 16 105/69 (81) 98 Room Air 98.2 Physical Exam General: Alert, Oriented X3, Cooperative, No acute distress Heart: Regular rate Lungs: Clear Abdomen: Normal bowel sounds Extremities: Other (no edema. arthritic changes) Skin: No rashes Labs LABS Laboratory Tests Test 03/18/17 17:03 03/19/17 05:50 03/19/17 07:11 03/19/17 12:01 Glucose (Fingerstick) 204 mg/dL (70-99) 141 mg/dL (70-99) 122 mg/dL (70-99) White Blood Count 6.9 x10^3/uL (4.0-11.0) Red Blood Count 4.11 x10^6/uL (3.50-5.40) Hemoglobin 11.5 g/dL (12.0-15.5) Hematocrit 35.9 % (36.0-47.0) Mean Corpuscular Volume 87 fL (79-100) Mean Corpuscular Hemoglobin 28 pg (25-35) Mean Corpuscular Hemoglobin Concent 32 g/dL (31-37) Red Cell Distribution Width 14.4 % (11.5-14.5) Platelet Count 196 x10^3/uL (140-400) Neutrophils (%) (Auto) 65 % (31-73) Lymphocytes (%) (Auto) 23 % (24-48) Monocytes (%) (Auto) 10 % (0-9) Eosinophils (%) (Auto) 3 % (0-3) Basophils (%) (Auto) 0 % (0-3) Neutrophils # (Auto) 4.5 x10^3uL (1.8-7.7) Lymphocytes # (Auto) 1.6 x10^3/uL (1.0-4.8) Monocytes # (Auto) 0.7 x10^3/uL (0.0-1.1) Eosinophils # (Auto) 0.2 x10^3/uL (0.0-0.7) Basophils # (Auto) 0.0 x10^3/uL (0.0-0.2) Sodium Level 139 mmol/L (136-145) Potassium Level 4.3 mmol/L (3.5-5.1) Chloride Level 104 mmol/L (98-107) Carbon Dioxide Level 26 mmol/L (21-32) Anion Gap 9 (6-14) Blood Urea Nitrogen 14 mg/dL (7-20) Creatinine 0.9 mg/dL (0.6-1.0) Estimated GFR (Cockcroft-Gault) 73.7 Glucose Level 129 mg/dL (70-99) Calcium Level 8.8 mg/dL (8.5-10.1) PRIYA PEREZ MD Mar 19, 2017 14:18
[2017-03-19] MEDS: POTASSIUM CL 20MEQ D5-0.45NACL 1,000 ML IV SCH (14:30)
--- NOTE | 2017-03-19 21:55 | EKG ---
[facility] [address] [place] [address] Test Date: 2017-03-19 Test Time: 21:50:43 Pat Name: MARVIN VARMA Department: Room: 2 1 Gender: F Timekeeper: MYRNA : 1940 Requested By: PRIYA PEREZ Order Number: [id number] Reading MD: Dom Murray MD Measurements Intervals [place] Rate: 126 P: 59 OR: 110 QRS: 113 QRSD: 94 T: 41 QT: 310 QTc: 449 Interpretive Statements SINUS TACHYCARDIA ABNORMAL RIGHT AXIS DEVIATION CONSISTENT WITH WALLY-SEPTAL INFARCT Electronically Signed On 03-23-2017 14:10:33 X RAY TECHNOLOGIST by Dom Murray MD
[2017-03-19 22:06] LABS: BASO % 0 % (0-3); EOS % 4 % (0-3); HEMATOCRIT 37.7 % (36.0-47.0); LYMPH # 3.4 x10^3/uL (1.0-4.8); LYMPH % 37 % (24-48); MEAN CORPUSCULAR HEMOGLOBIN 28 pg (25-35); MEAN CORPUSCULAR HGB CONC 32 g/dL (31-37); MEAN CORPUSCULAR VOLUME 89 fL (79-100); MONO % 8 % (0-9); NEUT % 51 % (31-73); PLATELET COUNT 228 x10^3/uL (140-400); RED BLOOD COUNT 4.23 x10^6/uL (3.50-5.40); RED CELL DISTRIBUTION WIDTH 14.3 % (11.5-14.5); WHITE BLOOD COUNT 9.3 x10^3/uL (4.0-11.0)
[2017-03-19 22:19] LABS: CALCIUM 8.9 mg/dL (8.5-10.1); CREATININE 1.1 mg/dL (0.6-1.0); GFR 58.4; POTASSIUM 4.6 mmol/L (3.5-5.1)
[2017-03-19 22:24] LABS: ALBUMIN 2.9 g/dL (3.4-5.0); ALBUMIN/GLOBULIN RATIO 0.8 (1.0-1.7); TOTAL BILIRUBIN 0.2 mg/dL (0.2-1.0); TOTAL PROTEIN 6.6 g/dL (6.4-8.2)
[2017-03-19] MEDS ORDERED: NOREPINEPHRIN PREMIX 250 ML IV ONE (23:14)
--- NOTE | 2017-03-19 23:41 | PDOC ---
PROGRESS NOTES Subjective Subjective Code blue called earlier for no pulse, chest compressions started, pt lethargic and not responsive, reported 1 compression given, and pt responded, very light pulse very low BP Dr. Colunga arrived, IV fluids given 2 liters, and transferred to ICU, pressures still low in ICU, cont IV fluids, start low dose levaphed, and BP jumped up to 131/80 pt awake now and talkative and reports feeling well transferred to ICU, critical care initiated troponin elevation, consult CV consider central line if BP not improved, cont IV fluids at 200 restart the zyvox that was stopped earlier, ID consult following Objective Objective Vital Signs Date Time Temp Pulse Resp B/P (MAP) Pulse Ox O2 Delivery O2 Flow Rate FiO2 03/19/17 19:00 98.2 106 18 109/70 (83) 98 Room Air 98.2 Intake and Output 03/19/17 07:00 Intake Total 550 ml Output Total 1400 ml Balance -850 ml Intake Oral 550 ml Output Urine Total 1400 ml # Bowel Movements 1 Physical Exam Heart: Regular rate, No murmurs General: Alert, Cooperative, mild distress HEENT: Atraumatic, PERRLA Psych/Mental Status: Mental status NL, Mood NL Assessment Assessment Problems Medical Problems: (1) Fever Status: Acute (2) Multiple sclerosis exacerbation Status: Acute (3) UTI (urinary tract infection) Status: Acute Plan Plan of Care ICu care change Abx BP support and IV fluid discussed with Dr. Colunga, and RN Comment Review of Relevant I have reviewed the following items kenan (where applicable) has been applied. Labs Laboratory Tests Test 03/18/17 07:07 03/18/17 09:25 03/18/17 11:40 03/18/17 17:03 Glucose (Fingerstick) 150 mg/dL (70-99) 178 mg/dL (70-99) 204 mg/dL (70-99) White Blood Count 6.9 x10^3/uL (4.0-11.0) Red Blood Count 4.34 x10^6/uL (3.50-5.40) Hemoglobin 12.2 g/dL (12.0-15.5) Hematocrit 37.9 % (36.0-47.0) Mean Corpuscular Volume 87 fL (79-100) Mean Corpuscular Hemoglobin 28 pg (25-35) Mean Corpuscular Hemoglobin Concent 32 g/dL (31-37) Red Cell Distribution Width 14.2 % (11.5-14.5) Platelet Count 232 x10^3/uL (140-400) Neutrophils (%) (Auto) 77 % (31-73) Lymphocytes (%) (Auto) 13 % (24-48) Monocytes (%) (Auto) 8 % (0-9) Eosinophils (%) (Auto) 2 % (0-3) Basophils (%) (Auto) 0 % (0-3) Neutrophils # (Auto) 5.3 x10^3uL (1.8-7.7) Lymphocytes # (Auto) 0.9 x10^3/uL (1.0-4.8) Monocytes # (Auto) 0.5 x10^3/uL (0.0-1.1) Eosinophils # (Auto) 0.1 x10^3/uL (0.0-0.7) Basophils # (Auto) 0.0 x10^3/uL (0.0-0.2) Sodium Level 139 mmol/L (136-145) Potassium Level 3.9 mmol/L (3.5-5.1) Chloride Level 103 mmol/L (98-107) Carbon Dioxide Level 28 mmol/L (21-32) Anion Gap 8 (6-14) Blood Urea Nitrogen 10 mg/dL (7-20) Creatinine 0.9 mg/dL (0.6-1.0) Estimated GFR (Cockcroft-Gault) 73.7 BUN/Creatinine Ratio 11 (6-20) Glucose Level 187 mg/dL (70-99) Lactic Acid Level 3.0 mmol/L (0.4-2.0) Calcium Level 8.6 mg/dL (8.5-10.1) Total Bilirubin 0.3 mg/dL (0.2-1.0) Aspartate Amino Transf (AST/SGOT) 24 U/L (15-37) Alanine Aminotransferase (ALT/SGPT) 22 U/L (14-59) Alkaline Phosphatase 75 U/L (46-116) Total Protein 7.0 g/dL (6.4-8.2) Albumin 2.8 g/dL (3.4-5.0) Albumin/Globulin Ratio 0.7 (1.0-1.7) Test 03/19/17 05:50 03/19/17 07:11 03/19/17 12:01 03/19/17 17:15 White Blood Count 6.9 x10^3/uL (4.0-11.0) Red Blood Count 4.11 x10^6/uL (3.50-5.40) Hemoglobin 11.5 g/dL (12.0-15.5) Hematocrit 35.9 % (36.0-47.0) Mean Corpuscular Volume 87 fL (79-100) Mean Corpuscular Hemoglobin 28 pg (25-35) Mean Corpuscular Hemoglobin Concent 32 g/dL (31-37) Red Cell Distribution Width 14.4 % (11.5-14.5) Platelet Count 196 x10^3/uL (140-400) Neutrophils (%) (Auto) 65 % (31-73) Lymphocytes (%) (Auto) 23 % (24-48) Monocytes (%) (Auto) 10 % (0-9) Eosinophils (%) (Auto) 3 % (0-3) Basophils (%) (Auto) 0 % (0-3) Neutrophils # (Auto) 4.5 x10^3uL (1.8-7.7) Lymphocytes # (Auto) 1.6 x10^3/uL (1.0-4.8) Monocytes # (Auto) 0.7 x10^3/uL (0.0-1.1) Eosinophils # (Auto) 0.2 x10^3/uL (0.0-0.7) Basophils # (Auto) 0.0 x10^3/uL (0.0-0.2) Sodium Level 139 mmol/L (136-145) Potassium Level 4.3 mmol/L (3.5-5.1) Chloride Level 104 mmol/L (98-107) Carbon Dioxide Level 26 mmol/L (21-32) Anion Gap 9 (6-14) Blood Urea Nitrogen 14 mg/dL (7-20) Creatinine 0.9 mg/dL (0.6-1.0) Estimated GFR (Cockcroft-Gault) 73.7 Glucose Level 129 mg/dL (70-99) Calcium Level 8.8 mg/dL (8.5-10.1) Glucose (Fingerstick) 141 mg/dL (70-99) 122 mg/dL (70-99) 146 mg/dL (70-99) Test 03/19/17 21:49 03/19/17 22:00 Glucose (Fingerstick) 162 mg/dL (70-99) White Blood Count 9.3 x10^3/uL (4.0-11.0) Red Blood Count 4.23 x10^6/uL (3.50-5.40) Hemoglobin 12.0 g/dL (12.0-15.5) Hematocrit 37.7 % (36.0-47.0) Mean Corpuscular Volume 89 fL (79-100) Mean Corpuscular Hemoglobin 28 pg (25-35) Mean Corpuscular Hemoglobin Concent 32 g/dL (31-37) Red Cell Distribution Width 14.3 % (11.5-14.5) Platelet Count 228 x10^3/uL (140-400) Neutrophils (%) (Auto) 51 % (31-73) Lymphocytes (%) (Auto) 37 % (24-48) Monocytes (%) (Auto) 8 % (0-9) Eosinophils (%) (Auto) 4 % (0-3) Basophils (%) (Auto) 0 % (0-3) Neutrophils # (Auto) 4.7 x10^3uL (1.8-7.7) Lymphocytes # (Auto) 3.4 x10^3/uL (1.0-4.8) Monocytes # (Auto) 0.7 x10^3/uL (0.0-1.1) Eosinophils # (Auto) 0.3 x10^3/uL (0.0-0.7) Basophils # (Auto) 0.0 x10^3/uL (0.0-0.2) Sodium Level 140 mmol/L (136-145) Potassium Level 4.6 mmol/L (3.5-5.1) Chloride Level 105 mmol/L (98-107) Carbon Dioxide Level 21 mmol/L (21-32) Anion Gap 14 (6-14) Blood Urea Nitrogen 16 mg/dL (7-20) Creatinine 1.1 mg/dL (0.6-1.0) Estimated GFR (Cockcroft-Gault) 58.4 BUN/Creatinine Ratio 15 (6-20) Glucose Level 171 mg/dL (70-99) Calcium Level 8.9 mg/dL (8.5-10.1) Total Bilirubin 0.2 mg/dL (0.2-1.0) Aspartate Amino Transf (AST/SGOT) 29 U/L (15-37) Alanine Aminotransferase (ALT/SGPT) 26 U/L (14-59) Alkaline Phosphatase 72 U/L (46-116) Troponin I Quantitative 0.112 ng/mL (0.000-0.055) Total Protein 6.6 g/dL (6.4-8.2) Albumin 2.9 g/dL (3.4-5.0) Albumin/Globulin Ratio 0.8 (1.0-1.7) Laboratory Tests Test 03/19/17 05:50 03/19/17 07:11 03/19/17 12:01 03/19/17 17:15 White Blood Count 6.9 x10^3/uL (4.0-11.0) Red Blood Count 4.11 x10^6/uL (3.50-5.40) Hemoglobin 11.5 g/dL (12.0-15.5) Hematocrit 35.9 % (36.0-47.0) Mean Corpuscular Volume 87 fL (79-100) Mean Corpuscular Hemoglobin 28 pg (25-35) Mean Corpuscular Hemoglobin Concent 32 g/dL (31-37) Red Cell Distribution Width 14.4 % (11.5-14.5) Platelet Count 196 x10^3/uL (140-400) Neutrophils (%) (Auto) 65 % (31-73) Lymphocytes (%) (Auto) 23 % (24-48) Monocytes (%) (Auto) 10 % (0-9) Eosinophils (%) (Auto) 3 % (0-3) Basophils (%) (Auto) 0 % (0-3) Neutrophils # (Auto) 4.5 x10^3uL (1.8-7.7) Lymphocytes # (Auto) 1.6 x10^3/uL (1.0-4.8) Monocytes # (Auto) 0.7 x10^3/uL (0.0-1.1) Eosinophils # (Auto) 0.2 x10^3/uL (0.0-0.7) Basophils # (Auto) 0.0 x10^3/uL (0.0-0.2) Sodium Level 139 mmol/L (136-145) Potassium Level 4.3 mmol/L (3.5-5.1) Chloride Level 104 mmol/L (98-107) Carbon Dioxide Level 26 mmol/L (21-32) Anion Gap 9 (6-14) Blood Urea Nitrogen 14 mg/dL (7-20) Creatinine 0.9 mg/dL (0.6-1.0) Estimated GFR (Cockcroft-Gault) 73.7 Glucose Level 129 mg/dL (70-99) Calcium Level 8.8 mg/dL (8.5-10.1) Glucose (Fingerstick) 141 mg/dL (70-99) 122 mg/dL (70-99) 146 mg/dL (70-99) Test 03/19/17 21:49 03/19/17 22:00 Glucose (Fingerstick) 162 mg/dL (70-99) White Blood Count 9.3 x10^3/uL (4.0-11.0) Red Blood Count 4.23 x10^6/uL (3.50-5.40) Hemoglobin 12.0 g/dL (12.0-15.5) Hematocrit 37.7 % (36.0-47.0) Mean Corpuscular Volume 89 fL (79-100) Mean Corpuscular Hemoglobin 28 pg (25-35) Mean Corpuscular Hemoglobin Concent 32 g/dL (31-37) Red Cell Distribution Width 14.3 % (11.5-14.5) Platelet Count 228 x10^3/uL (140-400) Neutrophils (%) (Auto) 51 % (31-73) Lymphocytes (%) (Auto) 37 % (24-48) Monocytes (%) (Auto) 8 % (0-9) Eosinophils (%) (Auto) 4 % (0-3) Basophils (%) (Auto) 0 % (0-3) Neutrophils # (Auto) 4.7 x10^3uL (1.8-7.7) Lymphocytes # (Auto) 3.4 x10^3/uL (1.0-4.8) Monocytes # (Auto) 0.7 x10^3/uL (0.0-1.1) Eosinophils # (Auto) 0.3 x10^3/uL (0.0-0.7) Basophils # (Auto) 0.0 x10^3/uL (0.0-0.2) Sodium Level 140 mmol/L (136-145) Potassium Level 4.6 mmol/L (3.5-5.1) Chloride Level 105 mmol/L (98-107) Carbon Dioxide Level 21 mmol/L (21-32) Anion Gap 14 (6-14) Blood Urea Nitrogen 16 mg/dL (7-20) Creatinine 1.1 mg/dL (0.6-1.0) Estimated GFR (Cockcroft-Gault) 58.4 BUN/Creatinine Ratio 15 (6-20) Glucose Level 171 mg/dL (70-99) Calcium Level 8.9 mg/dL (8.5-10.1) Total Bilirubin 0.2 mg/dL (0.2-1.0) Aspartate Amino Transf (AST/SGOT) 29 U/L (15-37) Alanine Aminotransferase (ALT/SGPT) 26 U/L (14-59) Alkaline Phosphatase 72 U/L (46-116) Troponin I Quantitative 0.112 ng/mL (0.000-0.055) Total Protein 6.6 g/dL (6.4-8.2) Albumin 2.9 g/dL (3.4-5.0) Albumin/Globulin Ratio 0.8 (1.0-1.7) Microbiology 03/17/17 Blood Culture - Preliminary, Resulted NO GROWTH AFTER 2 DAYS 03/17/17 Urine Culture - Final, Complete 03/17/17 Urine Culture Result 1 (VIRGIE) - Final, Complete Medications Current Medications Sodium Chloride 1,000 ml @ 1,000 mls/hr 1X ONCE IV Last administered on 03/17 12:30; Start 03/17/17 at 12:30; Stop 03/17/17 at 13:29; Status DC Acetaminophen (Tylenol) 1,000 mg 1X ONCE PO Last administered on 03/17/17 13 :21; Start 03/17/17 at 12:30; Stop 03/17/17 at 12:31; Status DC Ceftriaxone Sodium 50 ml @ 100 mls/hr 1X ONCE IV Last administered on 14:20; Start 03/17/17 at 13:30; Stop 03/17/17 at 13:59; Status DC Ondansetron HCl (Zofran) 4 mg PRN Q8HRS PRN IV NAUSEA/VOMITING; Start at 13:30; Stop 03/18/17 at 13:29; Status DC Morphine Sulfate 2 mg PRN Q2HR PRN IV PAIN; Start 03/17/17 at 13:30; Stop at 13:29; Status DC Dextrose (Dextrose 50%-Water Syringe) 12.5 gm PRN Q15MIN PRN IV SEE COMMENTS; Start 03/17/17 at 15:00 Allopurinol (Zyloprim) 100 mg DAILY PO Last administered on 03/19/17 08:59; Start 03/18/17 at 09:00 Atorvastatin Calcium (Lipitor) 10 mg 3X/WEEK PO Last administered on 07:46; Start 03/18/17 at 09:00 Baclofen (Lioresal) 10 mg TID PO Last administered on 03/19/17 15:24; Start 03/17/17 at 21:00 Metformin HCl (Glucophage) 500 mg BIDWMEALS PO Last administered on 03/19/17 17:43; Start 03/17/17 at 17:00 Non-Formulary Medication 50 mg DAILY PO ; Start 03/18/17 at 09:00; Status UNV Pantoprazole Sodium (Protonix) 40 mg DAILYAC PO Last administered on 08:59; Start 03/18/17 at 07:30 Oxybutynin Chloride (Ditropan) 5 mg [id number] PO Last administered on 03/19/17 15:25; Start 03/17/17 at 21:00 Potassium Chloride/Dextrose/ Sod Cl 1,000 ml @ 50 mls/hr Q20H IV Last administered on 03/19/17 14:30; Start 03/17/17 at 22:30; Stop 03/19/17 at 23 :15; Status DC Cefepime HCl 1 gm/ Dextrose 50 ml @ 100 mls/hr Q8HRS IV ; Start 03/18/17 at 09 :15; Stop 03/18/17 at 09:34; Status DC Linezolid (Zyvox) 600 mg BID PO Last administered on 03/19/17 08:59; Start 03/18/17 at 09:15; Stop 03/19/17 at 11:17; Status DC Cefepime HCl (Maxipime) 1 gm Q8HRS IVP Last administered on 03/19/17 08:44; Start 03/18/17 at 10:00; Stop 03/19/17 at 11:17; Status DC Ceftriaxone Sodium 1 gm/ Dextrose 50 ml @ 100 mls/hr Q24H IV ; Start 03/19/17 at 11:30; Stop 03/19/17 at 11:30; Status DC Ceftriaxone Sodium (Rocephin) 1 gm Q24H IVP Last administered on 03/19/17 12: 42; Start 03/19/17 at 12:00 Ondansetron HCl (Zofran) 4 mg PRN Q6HRS PRN IV NAUSEA/VOMITING Last administered on 03/19/17 13:19; Start 03/19/17 at 13:15 Sodium Chloride 1,000 ml @ 200 mls/hr Q5H IV ; Start 03/19/17 at 23:30 Norepinephrine Bitartrate 250 ml @ As Directed STK-MED ONCE IV ; Start at 23:14; Stop 03/19/17 at 23:15; Status DC Linezolid 300 ml @ 300 mls/hr Q12HR IV ; Start 03/19/17 at 23:30 Active Scripts Active Reported Atorvastatin Calcium 10 Mg Tablet 1 Tab PO 3X/WEEK Allopurinol 100 Mg Tablet 1 Tab PO DAILY Omeprazole 20 Mg Capsule.dr 1 Cap PO DAILY Myrbetriq (Mirabegron) 50 Mg Tab.er.24h 50 Mg PO DAILY Baclofen 10 Mg Tablet 1 Tab PO TID Vesicare (Solifenacin Succinate) 10 Mg Tablet 1 Tab PO DAILY Metformin Hcl 500 Mg Tablet 500 Mg PO BIDWMEALS Vitals/I & O Vital Sign - Last 24 Hours 03/19/17 03/19/17 03/19/17 03/19/17 03:55 07:00 07:31 11:00 Temp 97.9 98.1 98.2 97.9 98.1 98.2 Pulse 103 97 103 Resp 17 16 16 B/P (MAP) 108/69 (82) 98/56 (70) 105/69 (81) Pulse Ox 100 96 98 O2 Delivery Room Air Room Air Room Air Room Air 03/19/17 03/19/17 15:00 19:00 Temp 98.2 98.2 98.2 98.2 Pulse 106 106 Resp 16 18 B/P (MAP) 109/70 (83) 109/70 (83) Pulse Ox 98 98 O2 Delivery Room Air Room Air Intake and Output 03/18/17 03/18/17 03/19/17 15:00 23:00 07:00 Intake Total 400 ml 150 ml Output Total 550 ml 850 ml Balance -150 ml -700 ml SHELBY SOW MD Mar 19, 2017 23:41
[2017-03-19] MEDS: IV NORMAL SALINE 1000ML BAG 1,000 ML IV SCH (23:48)
[2017-03-20] VITALS (22 sets, daily range): BP systolic 79–123; BP diastolic 54–94
[2017-03-20] MEDS ORDERED: NOREPINEPHRIN PREMIX 250 ML IV PRN (00:15)
[2017-03-20] MEDS: IV NORMAL SALINE 1000ML BAG 1,000 ML IV SCH ×4 (04:51→21:23)
[2017-03-20] MEDS ORDERED: METOPROLOL SUCC 24HR ER 25 MG TAB.ER.24H. PO ONE (09:00)
--- NOTE | 2017-03-20 09:04 | PDOC ---
Infectious Disease Note Subjective Subjective Doing ok. Was on the bedside commode yesterday and passed out Denies excessive straining. No F/C/s but did vomit yesterday ROS ROS GEN: Denies fevers, chills, sweats HEENT: Denies blurred vision, sore throat CV: Denies chest pain RESP: Denies shortness of air, cough GI: Denies n/v/d NEURO: Denies confusion, dizziness MSK: Denies weakness, joint pain/swelling Vital Sign Vital Signs Vital Signs Date Time Temp Pulse Resp B/P (MAP) Pulse Ox O2 Delivery O2 Flow Rate FiO2 03/20/17 08:00 120 19 109/79 (89) 93 Room Air 03/20/17 07:00 98.6 98.6 03/20/17 04:00 2.0 Physical Exam PHYSICAL EXAM GENERAL: NAD, Alert HEENT: PERRL, OC/OP -clear NECK: Supple, no JVD, no LN LUNGS: Clear HEART: S1S2, no gallop, no murmur ABD: Soft, NT, no organomegaly, no rebound Suprapubic EXT: No edema, no cyanosis HOME HEALTH LPN: Alert, oriented x 3, no focal neurologic deficit SKIN: No rash IV: Left neck IVclean Labs Lab Laboratory Tests Test 03/19/17 12:01 03/19/17 17:15 03/19/17 21:49 03/19/17 22:00 Glucose (Fingerstick) 122 mg/dL (70-99) 146 mg/dL (70-99) 162 mg/dL (70-99) White Blood Count 9.3 x10^3/uL (4.0-11.0) Red Blood Count 4.23 x10^6/uL (3.50-5.40) Hemoglobin 12.0 g/dL (12.0-15.5) Hematocrit 37.7 % (36.0-47.0) Mean Corpuscular Volume 89 fL (79-100) Mean Corpuscular Hemoglobin 28 pg (25-35) Mean Corpuscular Hemoglobin Concent 32 g/dL (31-37) Red Cell Distribution Width 14.3 % (11.5-14.5) Platelet Count 228 x10^3/uL (140-400) Neutrophils (%) (Auto) 51 % (31-73) Lymphocytes (%) (Auto) 37 % (24-48) Monocytes (%) (Auto) 8 % (0-9) Eosinophils (%) (Auto) 4 % (0-3) Basophils (%) (Auto) 0 % (0-3) Neutrophils # (Auto) 4.7 x10^3uL (1.8-7.7) Lymphocytes # (Auto) 3.4 x10^3/uL (1.0-4.8) Monocytes # (Auto) 0.7 x10^3/uL (0.0-1.1) Eosinophils # (Auto) 0.3 x10^3/uL (0.0-0.7) Basophils # (Auto) 0.0 x10^3/uL (0.0-0.2) Sodium Level 140 mmol/L (136-145) Potassium Level 4.6 mmol/L (3.5-5.1) Chloride Level 105 mmol/L (98-107) Carbon Dioxide Level 21 mmol/L (21-32) Anion Gap 14 (6-14) Blood Urea Nitrogen 16 mg/dL (7-20) Creatinine 1.1 mg/dL (0.6-1.0) Estimated GFR (Cockcroft-Gault) 58.4 BUN/Creatinine Ratio 15 (6-20) Glucose Level 171 mg/dL (70-99) Calcium Level 8.9 mg/dL (8.5-10.1) Total Bilirubin 0.2 mg/dL (0.2-1.0) Aspartate Amino Transf (AST/SGOT) 29 U/L (15-37) Alanine Aminotransferase (ALT/SGPT) 26 U/L (14-59) Alkaline Phosphatase 72 U/L (46-116) Troponin I Quantitative 0.112 ng/mL (0.000-0.055) Total Protein 6.6 g/dL (6.4-8.2) Albumin 2.9 g/dL (3.4-5.0) Albumin/Globulin Ratio 0.8 (1.0-1.7) Test 03/20/17 04:45 03/20/17 08:38 Lactic Acid Level 2.9 mmol/L (0.4-2.0) Troponin I Quantitative 0.183 ng/mL (0.000-0.055) Glucose (Fingerstick) 148 mg/dL (70-99) Objective Assessment Hypotension - on 5 of Levophed - clinically doing well currently Fever - better Lactic acidosis UTI - POA Amoxicillin allergy - rash Acute Encephalopathy - better DM MS Plan Plan of Care Add CBC/CMP/procalcitonin this am F/u lactic/troponin and blood cults/ECHO Repeat UA C and S Cont Zyvox/Rocephin Labs in am SARAH DE LA TORRE MD Mar 20, 2017 09:04
[2017-03-20 09:09] LABS: BASO % 0 % (0-3); EOS % 1 % (0-3); HEMATOCRIT 36.7 % (36.0-47.0); HEMOGLOBIN 11.9 g/dL (12.0-15.5); LYMPH # 1.6 x10^3/uL (1.0-4.8); LYMPH % 22 % (24-48); MEAN CORPUSCULAR HEMOGLOBIN 29 pg (25-35); MEAN CORPUSCULAR HGB CONC 32 g/dL (31-37); MEAN CORPUSCULAR VOLUME 88 fL (79-100); MONO % 9 % (0-9); NEUT % 68 % (31-73); PLATELET COUNT 204 x10^3/uL (140-400); RED BLOOD COUNT 4.15 x10^6/uL (3.50-5.40); RED CELL DISTRIBUTION WIDTH 14.7 % (11.5-14.5); WHITE BLOOD COUNT 7.5 x10^3/uL (4.0-11.0)
[2017-03-20 09:16] LABS: CALCIUM 8.4 mg/dL (8.5-10.1); GFR 65.2; POTASSIUM 4.4 mmol/L (3.5-5.1)
[2017-03-20 09:23] LABS: ALBUMIN 2.8 g/dL (3.4-5.0); ALBUMIN/GLOBULIN RATIO 0.7 (1.0-1.7); TOTAL BILIRUBIN 0.2 mg/dL (0.2-1.0); TOTAL PROTEIN 6.9 g/dL (6.4-8.2)
[2017-03-20] MEDS: ATORVASTATIN CALCIUM 10 MG TABLET. PO SCH (09:23)
[2017-03-20] MEDS: ALLOPURINOL 100 MG TABLET. PO SCH (09:23)
[2017-03-20] MEDS: BACLOFEN 10 MG TABLET. PO SCH ×3 (09:23→21:22)
[2017-03-20] MEDS: OXYBUTYNIN CHLORIDE 5 MG TABLET PO SCH ×3 (09:24→21:22)
[2017-03-20] MEDS: metFORMIN 500 MG TABLET PO SCH (09:24)
[2017-03-20] MEDS: PANTOPRAZOLE 40 MG TABLET.DR. PO SCH (09:24)
[2017-03-20 10:09] LABS: BILIRUBIN,URINE NEGATIVE (NEG); GLUCOSE,URINE NEGATIVE (NEG); NITRITE,URINE NEGATIVE (NEG); PROTEIN,URINE NEGATIVE (NEG-TRACE); UROBILINOGEN,URINE 0.2 mg/dL (0.2 mg/dL)
--- NOTE | 2017-03-20 10:17 | CARD ---
APPROVED REPORT EXAM: Two-dimensional and M-mode echocardiogram with Doppler and color Doppler. Other Information Quality : GoodHR: 120bpm Rhythm : Tachycardia INDICATION Abnormal ECG Arrhythmia 2D DIMENSIONS RVDd4.9 (2.9-3.5cm)Left Atrium(2D)2.4 (1.6-4.0cm) IVSd1.0 (0.7-1.1cm)Aortic Root(2D)2.9 (2.0-3.7cm) LVDd2.5 (3.9-5.9cm)LVOT Diameter1.9 (1.8-2.4cm) PWd1.1 (0.7-1.1cm)LVDs1.8 (2.5-4.0cm) FS (%) 26.9 %SV12.3 ml LVEF(%)54.8 (>50%) Aortic Valve AoV Peak Jaylen.78.3cm/sAoV VTI12.0cm AO Peak GR.2.4mmHgLVOT VTI 11.58cm AO Mean GR.1mmHgAVA (VTI)2.70cm2 Mitral Valve MV E Rpfyppqe43.9cm/sMV DECEL [id number] MV A Gincywvw03.4cm/sE/A Ratio0.7 TDI Lateral E' P. V15.90cm/sMedial E' P. V11.58cm/s E/Lateral E'3.7E/Medial E'5.1 Tricuspid Valve TR P. [id number]/sRAP [id number] TR Peak Gr.[id number] LEFT VENTRICLE The left ventricle is normal size. There is borderline concentric left ventricular hypertrophy. Left ventricle systolic function is normal. The Ejection Fraction is 55-60%. There is a flattened septum c onsistent with right ventricle volume and pressure overload. Tissue Doppler imaging reveals abnormal left ventricular diastolic dysfunction. RIGHT VENTRICLE The right ventricle is severely dilated. Systolic function is moderately reduced. ATRIA The left atrium size is normal. The right atrium is moderately dilated. Interatrial septum bowed towa rd the left, consistent with elevated right atrial pressures. AORTIC VALVE The aortic valve is normal in structure and function. Doppler and Color Flow revealed no significant aortic regurgitation. There is no significant aortic valvular stenosis. MITRAL VALVE The mitral valve is calcified but opens well. There is no evidence of mitral valve prolapse. There is no mitral valve stenosis. Doppler and Color Flow revealed no mitral valve regurgitation noted. TRICUSPID VALVE The tricuspid valve is normal in structure. Doppler and Color Flow revealed moderate tricuspid regurg itation. There is moderate pulmonary hypertension. The PA pressure was estimated at 45 mmHg. There is no tricuspid valve prolapse or vegetation. There is no tricuspid valve stenosis. PULMONIC VALVE The pulmonary valve is normal in structure and function. Doppler and Color Flow revealed no pulmonic valvular regurgitation. There is no pulmonic valvular stenosis. GREAT VESSELS The aortic root is normal in size. The ascending aorta is normal in size. IVC appears dilated. PERICARDIAL EFFUSION There is no pleural effusion. There is no evidence of significant pericardial effusion. Critical Notification Critical Value: No <Conclusion> Left ventricle systolic function is normal. The Ejection Fraction is 55-60%. There is a flattened septum consistent with right ventricle volume and pressure overload. The right ventricle is severely dilated. Doppler and Color Flow revealed moderate tricuspid regurgitation. There is moderate pulmonary hypertension. The PA pressure was estimated at 45 mmHg. There is no evidence of significant pericardial effusion.
[2017-03-20] MEDS: cefTRIAXone IV Push 1 GM VIAL. IVP SCH (11:17)
[2017-03-20 11:19] LABS: BACTERIA,URINE 0 /HPF (0-FEW); RBC,URINE 0 /HPF (0-2); SQUAMOUS EPITHELIAL CELL,UR FEW /LPF; WBC,URINE 20-40 /HPF (0-4)
--- NOTE | 2017-03-20 11:25 | CONS ---
DATE OF CONSULTATION: PULMONARY CONSULTATION ATTENDING PHYSICIAN: Dr. Willson. REASON FOR CONSULTATION: Syncope. HISTORY OF PRESENT ILLNESS: The patient is a 77-year-old -[place] female with history of multiple sclerosis and history of a suprapubic catheter. She presented to the Emergency Room with confusion. She had also had a fever of 103 a night before. The patient apparently had a episode and had a brief CPR and she regained consciousness. There may be some loss of pulse. Currently, she is on room air and appears to be in no obvious respiratory distress. I have reviewed the patient's chest x-ray. It shows markedly elevated right hemidiaphragm, which was the same finding in October as well. I have also looked at echo report and she has markedly dilated right ventricle. She has a pulmonary artery pressure of 45 and flattened septum consistent with a right ventricular volume and pressure overload. There is no chronic lung condition that she is aware of. PAST MEDICAL HISTORY: History of multiple sclerosis, history of suprapubic catheter for 2 years, history of diabetes. PAST SURGICAL HISTORY: Status post appendectomy, cholecystectomy and hysterectomy. FAMILY HISTORY: Noncontributory to lungs. SOCIAL HISTORY: No history of tobacco use. ALLERGIES: AMOXICILLIN. MEDICATIONS: All reviewed as listed in the MRAD. REVIEW OF SYSTEMS: Twelve-point systems were obtained. Pertinent positives discussed in my history of present illness, otherwise noncontributory. All systems that were negative were reviewed as well. SOCIAL HISTORY: Nonsmoker. PHYSICAL EXAMINATION: GENERAL: She is awake, following commands. VITAL SIGNS: Blood pressure 107, on 4 mcg of Levophed. Pulse ox 93% on room air. Pressure initially was 82 systolic. HEENT: Sclerae nonicteric. NECK: Supple. LUNGS: Diminished breath sounds, right base. CARDIOVASCULAR: Regular ____. ABDOMEN: Soft and nontender. EXTREMITIES: With no pitting edema. LABORATORY DATA: Reviewed. White cell count 7.5, hemoglobin 11.9, platelets are 204. BUN is 15, creatinine 1.0. Troponin 0.11. IMPRESSION: 1. Syncopal episode with a brief CPR. She has elevated right-sided pressure and dilatation of the right ventricle and a markedly elevated right hemidiaphragm. The possibility of thromboembolic disease is a strong consideration and needs to be ruled out. 2. Subjective fever in a patient who has multiple sclerosis and had a suprapubic catheter and early sepsis would be another etiology. 3. Shock, could be combination of early sepsis versus related to pulmonary embolism versus hypovolemia. 4. No significant history of tobacco use. 5. Fever secondary to infectious etiology. RECOMMENDATIONS: 1. IV hydration. Continue with p.r.n. oxygen. 2. CTA of the chest to rule out PE. 3. Continue antibiotics, Zyvox and Rocephin. 4. Follow urine culture. She could have urosepsis. 5. Further recommendations to follow after review of the CT chest. We will also assess for any interstitial lung disease contributing to pulmonary hypertension. Discussed with the patient's family. Discussed with RN. We will follow along with you. Critical care time 38 minutes. LUH GUTIERREZ MD DR: RADHA/eleanor JOB#: [id number] / [id number] LUCY
[2017-03-20] MEDS ORDERED: IOHEXOL 300 MG/ML 100ML VIAL. IV ONE (11:30)
[2017-03-20] MEDS ORDERED: CONTRAST GIVEN MC PRN (11:30)
--- NOTE | 2017-03-20 11:48 | PDOC2 ---
MANGO SMALLS REWRITE EDITOR 03/20/17 1148: CARDIAC CONSULT DATE OF CONSULT Date of Consult DATE: 03/20/17 TIME: 11:44 REASON FOR CONSULT Reason for Consult: troponin elevation and sepsis REFERRING PHYSICIAN Referring Physician: Piyush SOURCE Source: Chart review HISTORY OF PRESENT ILLNESS HISTORY OF PRESENT ILLNESS This is a 77 yo female admitted for complains of passing out. Pt lives with spouse and noted that she was not responding to stimulation. Initially she was just mumbling. Spouse then proceeded to call EMS. Based on review CPR was initiated but unknown duration and there was no notation on what type of rhythm she had at that time. Pt does not remember any significant symptoms prior to syncopal spell. Denies any CP, SOA, palpitations at that time. She does have multiple sclerosis and her mobility is mainly WC bound. Denies any prior CAD, VTE, falls or any recent injury. Denies any bleeding hx nor clotting hx. Presently she is awake comfortable and on room air, PAST MEDICAL HISTORY Cardiovascular: Hyperlipidemia Pulmonary: Other (No pertinent history) CENTRAL NERVOUS SYSTEM: Other (multiple sclerosis) GI: GERD Hepatobiliary: No pertinent hx Psych: No pertinent hx Musculoskeletal: Osteoarthritis Rheumatologic: Gout Infectious disease: No pertinent hx ENT: No pertinent hx Renal/: UTI, Other (neruogenic bladder) Endocrine: Diabetes (2) Dermatology: No pertinent hx PAST SURGICAL HISTORY Past Surgical History: Appendectomy, Hysterectomy, Other (suprapubic catheter placement) SOCIAL HISTORY Smoke: No ALCOHOL: none Drugs: None Lives: with Family CURRENT MEDICATIONS CURRENT MEDICATIONS Current Medications Medications (Trade) Dose Ordered Sig/Claudio Route PRN Reason Start Time Stop Time Status Last Admin Dose Admin Ceftriaxone Sodium (Rocephin) 1 gm Q24H IVP 03/19/17 12:00 03/20/17 11:17 Ondansetron HCl (Zofran) 4 mg PRN Q6HRS PRN IV NAUSEA/VOMITING 03/19/17 13:15 03/19/17 13:19 Sodium Chloride 1,000 ml @ 200 mls/hr Q5H IV 03/19/17 23:30 03/20/17 09:25 Linezolid 300 ml @ 300 mls/hr Q12HR IV 03/19/17 23:30 03/20/17 09:24 Norepinephrine Bitartrate 250 ml @ 0 mls/hr CONT PRN IV SEE I/O RECORD 03/20/17 00:15 03/20/17 00:34 ALLERGIES ALLERGIES: Coded Allergies: amoxicillin (Verified Allergy, Mild, ITCH, 03/17/17) ROS Review of System 14 point ROS evaluated with pertinent positives noted per HPI PHYSICAL EXAM General: Alert, Oriented X3, Cooperative, No acute distress HEENT: Atraumatic, Mucous membr. moist/pink Heart: Regular rate (Sinus tach with PACs), Other (S3; 2/6 systolic murmur to LLS border ) Abdomen: Soft, No tenderness Extremities: No cyanosis, Other (1+ bilateral ankle edema) Skin: No breakdown, No significant lesion Neuro: Normal speech, Sensation intact Psych/Mental Status: Mental status NL, Mood NL MUSCULOSKELETAL: Osteoarthritic changes both hands VITALS VITALS Vital Signs Date Time Temp Pulse Resp B/P (MAP) Pulse Ox O2 Delivery O2 Flow Rate FiO2 03/20/17 11:00 98.1 120 14 118/87 (97) 94 Room Air 98.1 03/20/17 04:00 2.0 LABS Lab: Laboratory Tests Test 03/19/17 12:01 03/19/17 17:15 03/19/17 21:49 03/19/17 22:00 Glucose (Fingerstick) 122 mg/dL (70-99) 146 mg/dL (70-99) 162 mg/dL (70-99) White Blood Count 9.3 x10^3/uL (4.0-11.0) Red Blood Count 4.23 x10^6/uL (3.50-5.40) Hemoglobin 12.0 g/dL (12.0-15.5) Hematocrit 37.7 % (36.0-47.0) Mean Corpuscular Volume 89 fL (79-100) Mean Corpuscular Hemoglobin 28 pg (25-35) Mean Corpuscular Hemoglobin Concent 32 g/dL (31-37) Red Cell Distribution Width 14.3 % (11.5-14.5) Platelet Count 228 x10^3/uL (140-400) Neutrophils (%) (Auto) 51 % (31-73) Lymphocytes (%) (Auto) 37 % (24-48) Monocytes (%) (Auto) 8 % (0-9) Eosinophils (%) (Auto) 4 % (0-3) Basophils (%) (Auto) 0 % (0-3) Neutrophils # (Auto) 4.7 x10^3uL (1.8-7.7) Lymphocytes # (Auto) 3.4 x10^3/uL (1.0-4.8) Monocytes # (Auto) 0.7 x10^3/uL (0.0-1.1) Eosinophils # (Auto) 0.3 x10^3/uL (0.0-0.7) Basophils # (Auto) 0.0 x10^3/uL (0.0-0.2) Sodium Level 140 mmol/L (136-145) Potassium Level 4.6 mmol/L (3.5-5.1) Chloride Level 105 mmol/L (98-107) Carbon Dioxide Level 21 mmol/L (21-32) Anion Gap 14 (6-14) Blood Urea Nitrogen 16 mg/dL (7-20) Creatinine 1.1 mg/dL (0.6-1.0) Estimated GFR (Cockcroft-Gault) 58.4 BUN/Creatinine Ratio 15 (6-20) Glucose Level 171 mg/dL (70-99) Calcium Level 8.9 mg/dL (8.5-10.1) Total Bilirubin 0.2 mg/dL (0.2-1.0) Aspartate Amino Transf (AST/SGOT) 29 U/L (15-37) Alanine Aminotransferase (ALT/SGPT) 26 U/L (14-59) Alkaline Phosphatase 72 U/L (46-116) Troponin I Quantitative 0.112 ng/mL (0.000-0.055) Total Protein 6.6 g/dL (6.4-8.2) Albumin 2.9 g/dL (3.4-5.0) Albumin/Globulin Ratio 0.8 (1.0-1.7) Test 03/20/17 04:45 03/20/17 08:38 03/20/17 09:20 White Blood Count 7.5 x10^3/uL (4.0-11.0) Red Blood Count 4.15 x10^6/uL (3.50-5.40) Hemoglobin 11.9 g/dL (12.0-15.5) Hematocrit 36.7 % (36.0-47.0) Mean Corpuscular Volume 88 fL (79-100) Mean Corpuscular Hemoglobin 29 pg (25-35) Mean Corpuscular Hemoglobin Concent 32 g/dL (31-37) Red Cell Distribution Width 14.7 % (11.5-14.5) Platelet Count 204 x10^3/uL (140-400) Neutrophils (%) (Auto) 68 % (31-73) Lymphocytes (%) (Auto) 22 % (24-48) Monocytes (%) (Auto) 9 % (0-9) Eosinophils (%) (Auto) 1 % (0-3) Basophils (%) (Auto) 0 % (0-3) Neutrophils # (Auto) 5.1 x10^3uL (1.8-7.7) Lymphocytes # (Auto) 1.6 x10^3/uL (1.0-4.8) Monocytes # (Auto) 0.7 x10^3/uL (0.0-1.1) Eosinophils # (Auto) 0.1 x10^3/uL (0.0-0.7) Basophils # (Auto) 0.0 x10^3/uL (0.0-0.2) Sodium Level 139 mmol/L (136-145) Potassium Level 4.4 mmol/L (3.5-5.1) Chloride Level 106 mmol/L (98-107) Carbon Dioxide Level 23 mmol/L (21-32) Anion Gap 10 (6-14) Blood Urea Nitrogen 15 mg/dL (7-20) Creatinine 1.0 mg/dL (0.6-1.0) Estimated GFR (Cockcroft-Gault) 65.2 BUN/Creatinine Ratio 15 (6-20) Glucose Level 163 mg/dL (70-99) Lactic Acid Level 2.9 mmol/L (0.4-2.0) Calcium Level 8.4 mg/dL (8.5-10.1) Total Bilirubin 0.2 mg/dL (0.2-1.0) Aspartate Amino Transf (AST/SGOT) 157 U/L (15-37) Alanine Aminotransferase (ALT/SGPT) 157 U/L (14-59) Alkaline Phosphatase 103 U/L (46-116) Troponin I Quantitative 0.183 ng/mL (0.000-0.055) Total Protein 6.9 g/dL (6.4-8.2) Albumin 2.8 g/dL (3.4-5.0) Albumin/Globulin Ratio 0.7 (1.0-1.7) Glucose (Fingerstick) 148 mg/dL (70-99) Urine Collection Type Unknown Urine Color Yellow Urine Clarity Clear Urine pH 6.0 Urine Specific [place] 1.025 Urine Protein Negative mg/dL (NEG-TRACE) Urine Glucose (UA) Negative mg/dL (NEG) Urine Ketones (Stick) Negative mg/dL (NEG) Urine Blood Negative (NEG) Urine Nitrite Negative (NEG) Urine Bilirubin Negative (NEG) Urine Urobilinogen Dipstick 0.2 mg/dL (0.2 mg/dL) Urine Leukocyte Esterase Moderate (NEG) Urine RBC 0 /HPF (0-2) Urine WBC 20-40 /HPF (0-4) Urine Squamous Epithelial Cells Few /LPF Urine Bacteria 0 /HPF (0-FEW) Urine Mucus Slight /LPF ECHOCARDIOGRAM ECHOCARDIOGRAM <Conclusion> Left ventricle systolic function is normal. The Ejection Fraction is 55-60%. There is a flattened septum consistent with right ventricle volume and pressure overload. The right ventricle is severely dilated. Doppler and Color Flow revealed moderate tricuspid regurgitation. There is moderate pulmonary hypertension. The PA pressure was estimated at 45 mmHg. There is no evidence of significant pericardial effusion. DATE: 03/20/17 1016 ASSESSMENT/PLAN ASSESSMENT/PLAN 1. Syncope: suspicious for PE as the culprit with RV changes in TTE noted above. Troponin mildly elevated with EKG sinus tach compatible with RVH and possible PE 2. Possible cardiopulmonary arrest: unknown duration of CPR, no rhythms noted, unclear details from spouse 3. Hx of Multiple Sclerosis: Mainly WC bound 4. DM2/HLP 5. Chronic UTI with neurogenic bladder 6. Mild transaminitis Recommendations 1. Venous Doppler, chest CTA. Pulmonary is now following 2. Supportive care. Problems: DUSTIN RODRIGUEZ MD 03/20/17 1336: CARDIAC CONSULT ALLERGIES ALLERGIES: Coded Allergies: amoxicillin (Verified Allergy, Mild, ITCH, 03/17/17) ASSESSMENT/PLAN ASSESSMENT/PLAN Patient seen and examined. Agree with CROOK OPERATOR's assessment and plan. 2-D echo showed normal LV systolic function but right ventricle enlarged, suspicious for pulmonary embolism especially in lieu of symptom of syncope. Slight troponin level elevation probably secondary to right ventricle strain. No left ventricular wall motion abnormalities. Doubt ACS. Agree with lower extremity venous duplex scan and chest CTA for further evaluation. Continue intravenous antibiotics for sepsis per ID team. Thank you for your consultation. Problems: MANGO SMALLS APRN Mar 20, 2017 11:48 DUSTIN RODRIGUEZ MD Mar 20, 2017 13:36
--- NOTE | 2017-03-20 12:56 | RAD ---
CTA of the chest with contrast, 03/20/2017: History: Pulmonary hypertension Multidetector CT imaging was performed following an IV bolus injection of iodinated contrast material. Multiplanar reconstructions were produced including coronal and sagittal MIP images. The central pulmonary arteries are well opacified. There are filling defects in the lateral aspect of the left main pulmonary artery extending into the upper and lower lobar pulmonary arteries as well as multiple segmental and subsegmental pulmonary arteries on the left. On the right there are filling defects within multiple segmental and subsegmental pulmonary arteries in all 3 lobes. There is moderate calcific plaquing of the thoracic aorta without evidence of aneurysm. Coronary artery calcifications are present. No mediastinal or hilar adenopathy is evident. There are scattered linear opacities in both lungs compatible with atelectasis. There may be a component of scarring. Several calcified granulomata are noted. There is mild interlobular septal thickening in the lung bases. There is a small amount of right-sided pleural fluid and a trace amount of left-sided pleural fluid. Bilateral renal cysts are noted. The gallbladder is surgically absent. IMPRESSION: 1. Extensive bilateral pulmonary emboli. 2. Mild to moderate streaky atelectasis in both lungs. 3. Tiny pleural effusions. 4. Coronary artery disease. Note: The findings were called to the patient's nurse in the ICU at 12:51 PM on 03/20/2017. PQRS Compliance Statement: One or more of the following individualized dose reduction techniques were utilized for this examination: 1. Automated exposure control 2. Adjustment of the mA and/or kV according to patient size 3. Use of iterative reconstruction technique
[2017-03-20] MEDS ORDERED: HEPARIN for IV BOLUS 10,000 UNIT/10 ML VIAL. IV ONE (13:00)
[2017-03-20] MEDS ORDERED: HEPARIN for IV BOLUS 10,000 UNIT/10 ML VIAL. IV PRN ×2 (13:00)
[2017-03-20 13:42] LABS: INR 1.2 (0.8-1.1); PROTHROMBIN TIME PATIENT 14.1 SEC (11.7-14.0)
[2017-03-20] MEDS: HEPARIN 25,000UTS/500ML PREMIX 500 ML IV PRN (13:54)
--- NOTE | 2017-03-20 15:03 | PDOC ---
PROGRESS NOTES Chief Complaint Chief Complaint acute pulmonary embolism, sepsis and hypotension 1. UTI: complicated with suprapubic cath broadspectrum Abx ; Dr Simon following, 2. Sepsis: fever, tachycardia persisting. no hypotension. recheck lactate 3. Leukocytosis: 4. Encephalopathy: toxic from uro sepsis. 5. DM2: 6. HLD: on statin 7. MS: no meds History of Present Illness History of Present Illness hypotensive overnight tachycardia today feels better, no event starting on heparin gtt for pulm embolism Vitals Vitals Vital Signs Date Time Temp Pulse Resp B/P (MAP) Pulse Ox O2 Delivery O2 Flow Rate FiO2 03/20/17 14:00 122 14 112/88 (96) 96 Room Air 03/20/17 11:00 98.1 98.1 03/20/17 04:00 2.0 Physical Exam General: Alert, Oriented X3, Cooperative, No acute distress Heart: Regular rate (Sinus tach with PACs), Other (S3; 2/6 systolic murmur to LLS border ) Lungs: Clear Abdomen: Soft, No tenderness Extremities: No cyanosis, Other (1+ bilateral ankle edema) Skin: No breakdown, No significant lesion Labs LABS Laboratory Tests Test 03/19/17 17:15 03/19/17 21:49 03/19/17 22:00 03/20/17 04:45 Glucose (Fingerstick) 146 mg/dL (70-99) 162 mg/dL (70-99) White Blood Count 9.3 x10^3/uL (4.0-11.0) 7.5 x10^3/uL (4.0-11.0) Red Blood Count 4.23 x10^6/uL (3.50-5.40) 4.15 x10^6/uL (3.50-5.40) Hemoglobin 12.0 g/dL (12.0-15.5) 11.9 g/dL (12.0-15.5) Hematocrit 37.7 % (36.0-47.0) 36.7 % (36.0-47.0) Mean Corpuscular Volume 89 fL (79-100) 88 fL (79-100) Mean Corpuscular Hemoglobin 28 pg (25-35) 29 pg (25-35) Mean Corpuscular Hemoglobin Concent 32 g/dL (31-37) 32 g/dL (31-37) Red Cell Distribution Width 14.3 % (11.5-14.5) 14.7 % (11.5-14.5) Platelet Count 228 x10^3/uL (140-400) 204 x10^3/uL (140-400) Neutrophils (%) (Auto) 51 % (31-73) 68 % (31-73) Lymphocytes (%) (Auto) 37 % (24-48) 22 % (24-48) Monocytes (%) (Auto) 8 % (0-9) 9 % (0-9) Eosinophils (%) (Auto) 4 % (0-3) 1 % (0-3) Basophils (%) (Auto) 0 % (0-3) 0 % (0-3) Neutrophils # (Auto) 4.7 x10^3uL (1.8-7.7) 5.1 x10^3uL (1.8-7.7) Lymphocytes # (Auto) 3.4 x10^3/uL (1.0-4.8) 1.6 x10^3/uL (1.0-4.8) Monocytes # (Auto) 0.7 x10^3/uL (0.0-1.1) 0.7 x10^3/uL (0.0-1.1) Eosinophils # (Auto) 0.3 x10^3/uL (0.0-0.7) 0.1 x10^3/uL (0.0-0.7) Basophils # (Auto) 0.0 x10^3/uL (0.0-0.2) 0.0 x10^3/uL (0.0-0.2) Sodium Level 140 mmol/L (136-145) 139 mmol/L (136-145) Potassium Level 4.6 mmol/L (3.5-5.1) 4.4 mmol/L (3.5-5.1) Chloride Level 105 mmol/L (98-107) 106 mmol/L (98-107) Carbon Dioxide Level 21 mmol/L (21-32) 23 mmol/L (21-32) Anion Gap 14 (6-14) 10 (6-14) Blood Urea Nitrogen 16 mg/dL (7-20) 15 mg/dL (7-20) Creatinine 1.1 mg/dL (0.6-1.0) 1.0 mg/dL (0.6-1.0) Estimated GFR (Cockcroft-Gault) 58.4 65.2 BUN/Creatinine Ratio 15 (6-20) 15 (6-20) Glucose Level 171 mg/dL (70-99) 163 mg/dL (70-99) Calcium Level 8.9 mg/dL (8.5-10.1) 8.4 mg/dL (8.5-10.1) Total Bilirubin 0.2 mg/dL (0.2-1.0) 0.2 mg/dL (0.2-1.0) Aspartate Amino Transf (AST/SGOT) 29 U/L (15-37) 157 U/L (15-37) Alanine Aminotransferase (ALT/SGPT) 26 U/L (14-59) 157 U/L (14-59) Alkaline Phosphatase 72 U/L (46-116) 103 U/L (46-116) Troponin I Quantitative 0.112 ng/mL (0.000-0.055) 0.183 ng/mL (0.000-0.055) Total Protein 6.6 g/dL (6.4-8.2) 6.9 g/dL (6.4-8.2) Albumin 2.9 g/dL (3.4-5.0) 2.8 g/dL (3.4-5.0) Albumin/Globulin Ratio 0.8 (1.0-1.7) 0.7 (1.0-1.7) Lactic Acid Level 2.9 mmol/L (0.4-2.0) Procalcitonin 0.10 ng/mL (0.00-0.10) Test 03/20/17 08:38 03/20/17 09:20 03/20/17 13:10 Glucose (Fingerstick) 148 mg/dL (70-99) Urine Collection Type Unknown Urine Color Yellow Urine Clarity Clear Urine pH 6.0 Urine Specific [place] 1.025 Urine Protein Negative mg/dL (NEG-TRACE) Urine Glucose (UA) Negative mg/dL (NEG) Urine Ketones (Stick) Negative mg/dL (NEG) Urine Blood Negative (NEG) Urine Nitrite Negative (NEG) Urine Bilirubin Negative (NEG) Urine Urobilinogen Dipstick 0.2 mg/dL (0.2 mg/dL) Urine Leukocyte Esterase Moderate (NEG) Urine RBC 0 /HPF (0-2) Urine WBC 20-40 /HPF (0-4) Urine Squamous Epithelial Cells Few /LPF Urine Bacteria 0 /HPF (0-FEW) Urine Mucus Slight /LPF Prothrombin Time 14.1 SEC (11.7-14.0) Prothromb Time International Ratio 1.2 (0.8-1.1) Review of Systems Review of Systems no n.vd. Assessment and Plan Assessmemt and Plan discussed with son and rand today, in ICU, plan transfer out when BP more stable Problems Medical Problems: (1) Fever Status: Acute (2) Multiple sclerosis exacerbation Status: Acute (3) UTI (urinary tract infection) Status: Acute Problems: Comment Review of Relevant I have reviewed the following items kenan (where applicable) has been applied. Labs Laboratory Tests Test 03/18/17 17:03 03/19/17 05:50 03/19/17 07:11 03/19/17 12:01 Glucose (Fingerstick) 204 mg/dL (70-99) 141 mg/dL (70-99) 122 mg/dL (70-99) White Blood Count 6.9 x10^3/uL (4.0-11.0) Red Blood Count 4.11 x10^6/uL (3.50-5.40) Hemoglobin 11.5 g/dL (12.0-15.5) Hematocrit 35.9 % (36.0-47.0) Mean Corpuscular Volume 87 fL (79-100) Mean Corpuscular Hemoglobin 28 pg (25-35) Mean Corpuscular Hemoglobin Concent 32 g/dL (31-37) Red Cell Distribution Width 14.4 % (11.5-14.5) Platelet Count 196 x10^3/uL (140-400) Neutrophils (%) (Auto) 65 % (31-73) Lymphocytes (%) (Auto) 23 % (24-48) Monocytes (%) (Auto) 10 % (0-9) Eosinophils (%) (Auto) 3 % (0-3) Basophils (%) (Auto) 0 % (0-3) Neutrophils # (Auto) 4.5 x10^3uL (1.8-7.7) Lymphocytes # (Auto) 1.6 x10^3/uL (1.0-4.8) Monocytes # (Auto) 0.7 x10^3/uL (0.0-1.1) Eosinophils # (Auto) 0.2 x10^3/uL (0.0-0.7) Basophils # (Auto) 0.0 x10^3/uL (0.0-0.2) Sodium Level 139 mmol/L (136-145) Potassium Level 4.3 mmol/L (3.5-5.1) Chloride Level 104 mmol/L (98-107) Carbon Dioxide Level 26 mmol/L (21-32) Anion Gap 9 (6-14) Blood Urea Nitrogen 14 mg/dL (7-20) Creatinine 0.9 mg/dL (0.6-1.0) Estimated GFR (Cockcroft-Gault) 73.7 Glucose Level 129 mg/dL (70-99) Calcium Level 8.8 mg/dL (8.5-10.1) Test 03/19/17 17:15 03/19/17 21:49 03/19/17 22:00 03/20/17 04:45 Glucose (Fingerstick) 146 mg/dL (70-99) 162 mg/dL (70-99) White Blood Count 9.3 x10^3/uL (4.0-11.0) 7.5 x10^3/uL (4.0-11.0) Red Blood Count 4.23 x10^6/uL (3.50-5.40) 4.15 x10^6/uL (3.50-5.40) Hemoglobin 12.0 g/dL (12.0-15.5) 11.9 g/dL (12.0-15.5) Hematocrit 37.7 % (36.0-47.0) 36.7 % (36.0-47.0) Mean Corpuscular Volume 89 fL (79-100) 88 fL (79-100) Mean Corpuscular Hemoglobin 28 pg (25-35) 29 pg (25-35) Mean Corpuscular Hemoglobin Concent 32 g/dL (31-37) 32 g/dL (31-37) Red Cell Distribution Width 14.3 % (11.5-14.5) 14.7 % (11.5-14.5) Platelet Count 228 x10^3/uL (140-400) 204 x10^3/uL (140-400) Neutrophils (%) (Auto) 51 % (31-73) 68 % (31-73) Lymphocytes (%) (Auto) 37 % (24-48) 22 % (24-48) Monocytes (%) (Auto) 8 % (0-9) 9 % (0-9) Eosinophils (%) (Auto) 4 % (0-3) 1 % (0-3) Basophils (%) (Auto) 0 % (0-3) 0 % (0-3) Neutrophils # (Auto) 4.7 x10^3uL (1.8-7.7) 5.1 x10^3uL (1.8-7.7) Lymphocytes # (Auto) 3.4 x10^3/uL (1.0-4.8) 1.6 x10^3/uL (1.0-4.8) Monocytes # (Auto) 0.7 x10^3/uL (0.0-1.1) 0.7 x10^3/uL (0.0-1.1) Eosinophils # (Auto) 0.3 x10^3/uL (0.0-0.7) 0.1 x10^3/uL (0.0-0.7) Basophils # (Auto) 0.0 x10^3/uL (0.0-0.2) 0.0 x10^3/uL (0.0-0.2) Sodium Level 140 mmol/L (136-145) 139 mmol/L (136-145) Potassium Level 4.6 mmol/L (3.5-5.1) 4.4 mmol/L (3.5-5.1) Chloride Level 105 mmol/L (98-107) 106 mmol/L (98-107) Carbon Dioxide Level 21 mmol/L (21-32) 23 mmol/L (21-32) Anion Gap 14 (6-14) 10 (6-14) Blood Urea Nitrogen 16 mg/dL (7-20) 15 mg/dL (7-20) Creatinine 1.1 mg/dL (0.6-1.0) 1.0 mg/dL (0.6-1.0) Estimated GFR (Cockcroft-Gault) 58.4 65.2 BUN/Creatinine Ratio 15 (6-20) 15 (6-20) Glucose Level 171 mg/dL (70-99) 163 mg/dL (70-99) Calcium Level 8.9 mg/dL (8.5-10.1) 8.4 mg/dL (8.5-10.1) Total Bilirubin 0.2 mg/dL (0.2-1.0) 0.2 mg/dL (0.2-1.0) Aspartate Amino Transf (AST/SGOT) 29 U/L (15-37) 157 U/L (15-37) Alanine Aminotransferase (ALT/SGPT) 26 U/L (14-59) 157 U/L (14-59) Alkaline Phosphatase 72 U/L (46-116) 103 U/L (46-116) Troponin I Quantitative 0.112 ng/mL (0.000-0.055) 0.183 ng/mL (0.000-0.055) Total Protein 6.6 g/dL (6.4-8.2) 6.9 g/dL (6.4-8.2) Albumin 2.9 g/dL (3.4-5.0) 2.8 g/dL (3.4-5.0) Albumin/Globulin Ratio 0.8 (1.0-1.7) 0.7 (1.0-1.7) Lactic Acid Level 2.9 mmol/L (0.4-2.0) Procalcitonin 0.10 ng/mL (0.00-0.10) Test 03/20/17 08:38 03/20/17 09:20 03/20/17 13:10 Glucose (Fingerstick) 148 mg/dL (70-99) Urine Collection Type Unknown Urine Color Yellow Urine Clarity Clear Urine pH 6.0 Urine Specific [place] 1.025 Urine Protein Negative mg/dL (NEG-TRACE) Urine Glucose (UA) Negative mg/dL (NEG) Urine Ketones (Stick) Negative mg/dL (NEG) Urine Blood Negative (NEG) Urine Nitrite Negative (NEG) Urine Bilirubin Negative (NEG) Urine Urobilinogen Dipstick 0.2 mg/dL (0.2 mg/dL) Urine Leukocyte Esterase Moderate (NEG) Urine RBC 0 /HPF (0-2) Urine WBC 20-40 /HPF (0-4) Urine Squamous Epithelial Cells Few /LPF Urine Bacteria 0 /HPF (0-FEW) Urine Mucus Slight /LPF Prothrombin Time 14.1 SEC (11.7-14.0) Prothromb Time International Ratio 1.2 (0.8-1.1) Laboratory Tests Test 03/19/17 17:15 03/19/17 21:49 03/19/17 22:00 03/20/17 04:45 Glucose (Fingerstick) 146 mg/dL (70-99) 162 mg/dL (70-99) White Blood Count 9.3 x10^3/uL (4.0-11.0) 7.5 x10^3/uL (4.0-11.0) Red Blood Count 4.23 x10^6/uL (3.50-5.40) 4.15 x10^6/uL (3.50-5.40) Hemoglobin 12.0 g/dL (12.0-15.5) 11.9 g/dL (12.0-15.5) Hematocrit 37.7 % (36.0-47.0) 36.7 % (36.0-47.0) Mean Corpuscular Volume 89 fL (79-100) 88 fL (79-100) Mean Corpuscular Hemoglobin 28 pg (25-35) 29 pg (25-35) Mean Corpuscular Hemoglobin Concent 32 g/dL (31-37) 32 g/dL (31-37) Red Cell Distribution Width 14.3 % (11.5-14.5) 14.7 % (11.5-14.5) Platelet Count 228 x10^3/uL (140-400) 204 x10^3/uL (140-400) Neutrophils (%) (Auto) 51 % (31-73) 68 % (31-73) Lymphocytes (%) (Auto) 37 % (24-48) 22 % (24-48) Monocytes (%) (Auto) 8 % (0-9) 9 % (0-9) Eosinophils (%) (Auto) 4 % (0-3) 1 % (0-3) Basophils (%) (Auto) 0 % (0-3) 0 % (0-3) Neutrophils # (Auto) 4.7 x10^3uL (1.8-7.7) 5.1 x10^3uL (1.8-7.7) Lymphocytes # (Auto) 3.4 x10^3/uL (1.0-4.8) 1.6 x10^3/uL (1.0-4.8) Monocytes # (Auto) 0.7 x10^3/uL (0.0-1.1) 0.7 x10^3/uL (0.0-1.1) Eosinophils # (Auto) 0.3 x10^3/uL (0.0-0.7) 0.1 x10^3/uL (0.0-0.7) Basophils # (Auto) 0.0 x10^3/uL (0.0-0.2) 0.0 x10^3/uL (0.0-0.2) Sodium Level 140 mmol/L (136-145) 139 mmol/L (136-145) Potassium Level 4.6 mmol/L (3.5-5.1) 4.4 mmol/L (3.5-5.1) Chloride Level 105 mmol/L (98-107) 106 mmol/L (98-107) Carbon Dioxide Level 21 mmol/L (21-32) 23 mmol/L (21-32) Anion Gap 14 (6-14) 10 (6-14) Blood Urea Nitrogen 16 mg/dL (7-20) 15 mg/dL (7-20) Creatinine 1.1 mg/dL (0.6-1.0) 1.0 mg/dL (0.6-1.0) Estimated GFR (Cockcroft-Gault) 58.4 65.2 BUN/Creatinine Ratio 15 (6-20) 15 (6-20) Glucose Level 171 mg/dL (70-99) 163 mg/dL (70-99) Calcium Level 8.9 mg/dL (8.5-10.1) 8.4 mg/dL (8.5-10.1) Total Bilirubin 0.2 mg/dL (0.2-1.0) 0.2 mg/dL (0.2-1.0) Aspartate Amino Transf (AST/SGOT) 29 U/L (15-37) 157 U/L (15-37) Alanine Aminotransferase (ALT/SGPT) 26 U/L (14-59) 157 U/L (14-59) Alkaline Phosphatase 72 U/L (46-116) 103 U/L (46-116) Troponin I Quantitative 0.112 ng/mL (0.000-0.055) 0.183 ng/mL (0.000-0.055) Total Protein 6.6 g/dL (6.4-8.2) 6.9 g/dL (6.4-8.2) Albumin 2.9 g/dL (3.4-5.0) 2.8 g/dL (3.4-5.0) Albumin/Globulin Ratio 0.8 (1.0-1.7) 0.7 (1.0-1.7) Lactic Acid Level 2.9 mmol/L (0.4-2.0) Procalcitonin 0.10 ng/mL (0.00-0.10) Test 03/20/17 08:38 03/20/17 09:20 03/20/17 13:10 Glucose (Fingerstick) 148 mg/dL (70-99) Urine Collection Type Unknown Urine Color Yellow Urine Clarity Clear Urine pH 6.0 Urine Specific [place] 1.025 Urine Protein Negative mg/dL (NEG-TRACE) Urine Glucose (UA) Negative mg/dL (NEG) Urine Ketones (Stick) Negative mg/dL (NEG) Urine Blood Negative (NEG) Urine Nitrite Negative (NEG) Urine Bilirubin Negative (NEG) Urine Urobilinogen Dipstick 0.2 mg/dL (0.2 mg/dL) Urine Leukocyte Esterase Moderate (NEG) Urine RBC 0 /HPF (0-2) Urine WBC 20-40 /HPF (0-4) Urine Squamous Epithelial Cells Few /LPF Urine Bacteria 0 /HPF (0-FEW) Urine Mucus Slight /LPF Prothrombin Time 14.1 SEC (11.7-14.0) Prothromb Time International Ratio 1.2 (0.8-1.1) Microbiology 03/17/17 Blood Culture - Preliminary, Resulted NO GROWTH AFTER 3 DAYS 03/17/17 Urine Culture - Final, Complete 03/17/17 Urine Culture Result 1 (VIRGIE) - Final, Complete Medications Current Medications Sodium Chloride 1,000 ml @ 1,000 mls/hr 1X ONCE IV Last administered on 03/17 12:30; Start 03/17/17 at 12:30; Stop 03/17/17 at 13:29; Status DC Acetaminophen (Tylenol) 1,000 mg 1X ONCE PO Last administered on 03/17/17 13 :21; Start 03/17/17 at 12:30; Stop 03/17/17 at 12:31; Status DC Ceftriaxone Sodium 50 ml @ 100 mls/hr 1X ONCE IV Last administered on 14:20; Start 03/17/17 at 13:30; Stop 03/17/17 at 13:59; Status DC Ondansetron HCl (Zofran) 4 mg PRN Q8HRS PRN IV NAUSEA/VOMITING; Start at 13:30; Stop 03/18/17 at 13:29; Status DC Morphine Sulfate 2 mg PRN Q2HR PRN IV PAIN; Start 03/17/17 at 13:30; Stop at 13:29; Status DC Dextrose (Dextrose 50%-Water Syringe) 12.5 gm PRN Q15MIN PRN IV SEE COMMENTS; Start 03/17/17 at 15:00 Allopurinol (Zyloprim) 100 mg DAILY PO Last administered on 03/20/17 09:23; Start 03/18/17 at 09:00 Atorvastatin Calcium (Lipitor) 10 mg 3X/WEEK PO Last administered on 09:23; Start 03/18/17 at 09:00 Baclofen (Lioresal) 10 mg TID PO Last administered on 03/20/17 13:45; Start 03/17/17 at 21:00 Metformin HCl (Glucophage) 500 mg BIDWMEALS PO Last administered on 03/20/17 09:24; Start 03/17/17 at 17:00; Stop 03/20/17 at 11:29; Status DC Non-Formulary Medication 50 mg DAILY PO ; Start 03/18/17 at 09:00; Status UNV Pantoprazole Sodium (Protonix) 40 mg DAILYAC PO Last administered on 09:24; Start 03/18/17 at 07:30 Oxybutynin Chloride (Ditropan) 5 mg [id number] PO Last administered on 03/20/17 13:45; Start 03/17/17 at 21:00 Potassium Chloride/Dextrose/ Sod Cl 1,000 ml @ 50 mls/hr Q20H IV Last administered on 03/19/17 14:30; Start 03/17/17 at 22:30; Stop 03/19/17 at 23 :15; Status DC Cefepime HCl 1 gm/ Dextrose 50 ml @ 100 mls/hr Q8HRS IV ; Start 03/18/17 at 09 :15; Stop 03/18/17 at 09:34; Status DC Linezolid (Zyvox) 600 mg BID PO Last administered on 03/19/17 08:59; Start 03/18/17 at 09:15; Stop 03/19/17 at 11:17; Status DC Cefepime HCl (Maxipime) 1 gm Q8HRS IVP Last administered on 03/19/17 08:44; Start 03/18/17 at 10:00; Stop 03/19/17 at 11:17; Status DC Ceftriaxone Sodium 1 gm/ Dextrose 50 ml @ 100 mls/hr Q24H IV ; Start 03/19/17 at 11:30; Stop 03/19/17 at 11:30; Status DC Ceftriaxone Sodium (Rocephin) 1 gm Q24H IVP Last administered on 03/20/17 11: 17; Start 03/19/17 at 12:00 Ondansetron HCl (Zofran) 4 mg PRN Q6HRS PRN IV NAUSEA/VOMITING Last administered on 03/19/17 13:19; Start 03/19/17 at 13:15 Sodium Chloride 1,000 ml @ 200 mls/hr Q5H IV Last administered on 03/20/17 09:25; Start 03/19/17 at 23:30 Norepinephrine Bitartrate 250 ml @ As Directed STK-MED ONCE IV ; Start at 23:14; Stop 03/19/17 at 23:15; Status DC Linezolid 300 ml @ 300 mls/hr Q12HR IV Last administered on 03/20/17 09:24; Start 03/19/17 at 23:30 Norepinephrine Bitartrate 250 ml @ 0 mls/hr CONT PRN IV SEE I/O RECORD Last administered on 03/20/17 00:34; Start 03/20/17 at 00:15 Metoprolol Succinate (Toprol Xl) 25 mg 1X ONCE PO ; Start 03/20/17 at 09:00; Stop 03/20/17 at 09:01; Status DC Lactobacillus Rhamnosus (Culturelle) 1 cap BID PO ; Start 03/20/17 at 21:00 Iohexol (Omnipaque 300 Mg/ml) 75 ml 1X ONCE IV Last administered on 12:28; Start 03/20/17 at 11:30; Stop 03/20/17 at 11:31; Status DC Metformin HCl (Glucophage) 500 mg BIDWMEALS PO ; Start 03/22/17 at 17:00 Info (Do NOT chart on this entry -- for MONITORING) 1 each PRN DAILY PRN MC SEE COMMENTS; Start 03/20/17 at 11:30; Stop 03/22/17 at 11:29 Heparin Sodium (Porcine) (Heparin Sodium) 5,800 unit 1X ONCE IV Last administered on 03/20/17 13:46; Start 03/20/17 at 13:00; Stop 03/20/17 at 13 :01; Status DC Heparin Sodium/ Dextrose 500 ml @ 0 mls/hr CONT PRN IV SEE I/O RECORD Last administered on 03/20/17 13:54; Start 03/20/17 at 13:00 Heparin Sodium (Porcine) (Heparin Sodium) 2,200 unit PRN Q6HRS PRN IV FOR UFH LEVEL LESS THAN 0.2; Start 03/20/17 at 13:00 Heparin Sodium (Porcine) (Heparin Sodium) 1,100 unit PRN Q6HRS PRN IV FOR UFH LEVEL 0.2 - 0.29; Start 03/20/17 at 13:00 Warfarin Sodium (Coumadin Per Pharmacy) 1 each PRN DAILY PRN MC PER PROTOCOL Last administered on 03/20/17 14:40; Start 03/20/17 at 13:00 Warfarin Sodium (Coumadin) 5 mg 1X WARF ONCE PO ; Start 03/20/17 at 16:00; Stop 03/20/17 at 16:01 Active Scripts Active Reported Atorvastatin Calcium 10 Mg Tablet 1 Tab PO 3X/WEEK Allopurinol 100 Mg Tablet 1 Tab PO DAILY Omeprazole 20 Mg Capsule.dr 1 Cap PO DAILY Myrbetriq (Mirabegron) 50 Mg Tab.er.24h 50 Mg PO DAILY Baclofen 10 Mg Tablet 1 Tab PO TID Vesicare (Solifenacin Succinate) 10 Mg Tablet 1 Tab PO DAILY Metformin Hcl 500 Mg Tablet 500 Mg PO BIDWMEALS Vitals/I & O Vital Sign - Last 24 Hours 03/19/17 03/19/17 03/19/17 03/19/17 19:00 20:00 22:30 22:45 Temp 98.2 97.7 98.2 97.7 Pulse 106 120 122 Resp 18 18 18 B/P (MAP) 109/70 (83) 102/61 (75) 92/73 (79) Pulse Ox 98 94 93 O2 Delivery Room Air Room Air Room Air Room Air 03/19/17 03/19/17 03/19/17 03/19/17 23:00 23:00 23:15 23:30 Pulse 126 120 114 Resp 21 23 31 B/P (MAP) 98/64 (75) 64/48 (53) 131/77 (95) Pulse Ox 95 94 83 O2 Delivery Nasal Cannula Room Air Room Air Nasal Cannula O2 Flow Rate 4.0 4.0 03/19/17 03/20/17 03/20/17 03/20/17 23:45 00:00 01:00 02:00 Pulse 120 122 124 122 Resp 19 17 14 B/P (MAP) 102/69 (80) 102/61 (75) 102/71 (81) 105/63 (77) Pulse Ox 98 93 96 93 O2 Delivery Nasal Cannula Nasal Cannula Nasal Cannula Nasal Cannula O2 Flow Rate 4.0 4.0 2.0 2.0 03/20/17 03/20/17 03/20/17 03/20/17 04:00 04:00 05:00 06:00 Temp 97.9 97.9 Pulse 116 121 119 Resp 30 21 34 B/P (MAP) 114/94 (101) 112/70 (84) 108/62 (77) Pulse Ox 94 95 93 O2 Delivery Nasal Cannula Nasal Cannula Room Air Room Air O2 Flow Rate 2.0 2.0 03/20/17 03/20/17 03/20/17 03/20/17 07:00 07:45 08:00 09:00 Temp 98.6 98.6 Pulse 119 120 124 Resp 19 19 19 B/P (MAP) 82/54 (63) 109/79 (89) 101/62 (75) Pulse Ox 95 93 93 O2 Delivery Room Air Room Air Room Air Room Air 03/20/17 03/20/17 03/20/17 03/20/17 10:00 11:00 12:00 12:00 Temp 98.1 98.1 Pulse 118 120 122 Resp 14 14 14 B/P (MAP) 107/83 (91) 118/87 (97) 123/71 (88) Pulse Ox 93 94 95 O2 Delivery Room Air Room Air Room Air Room Air 03/20/17 03/20/17 13:00 14:00 Pulse 126 122 Resp 16 14 B/P (MAP) 121/80 (94) 112/88 (96) Pulse Ox 92 96 O2 Delivery Room Air Room Air Intake and Output 03/19/17 03/19/17 03/20/17 15:00 23:00 07:00 Intake Total 240 ml 300 ml 4214 ml Output Total 750 ml 765 ml Balance 240 ml -450 ml 3449 ml SHELBY SOW MD Mar 20, 2017 15:03
[2017-03-20] MEDS ORDERED: WARFARIN 5 MG TABLET. PO ONE (16:00)
[2017-03-20] MEDS: LACTOBACILLUS RHAMNOSUS GG 1 CAPSULE. PO SCH (21:22)
[2017-03-21] VITALS (24 sets, daily range): BP systolic 79–118; BP diastolic 50–77
[2017-03-21 06:46] LABS: BASO % 0 % (0-3); EOS % 3 % (0-3); HEMATOCRIT 32.8 % (36.0-47.0); HEMOGLOBIN 10.6 g/dL (12.0-15.5); LYMPH # 1.8 x10^3/uL (1.0-4.8); LYMPH % 20 % (24-48); MEAN CORPUSCULAR HEMOGLOBIN 28 pg (25-35); MEAN CORPUSCULAR HGB CONC 32 g/dL (31-37); MEAN CORPUSCULAR VOLUME 88 fL (79-100); MONO % 8 % (0-9); NEUT % 69 % (31-73); PLATELET COUNT 176 x10^3/uL (140-400); RED BLOOD COUNT 3.74 x10^6/uL (3.50-5.40); RED CELL DISTRIBUTION WIDTH 14.4 % (11.5-14.5); WHITE BLOOD COUNT 9.2 x10^3/uL (4.0-11.0)
[2017-03-21 06:51] LABS: CALCIUM 8.1 mg/dL (8.5-10.1); CREATININE 0.9 mg/dL (0.6-1.0); GFR 73.7
[2017-03-21 06:57] LABS: INR 1.2 (0.8-1.1); PROTHROMBIN TIME PATIENT 14.8 SEC (11.7-14.0)
[2017-03-21] MEDS: OXYBUTYNIN CHLORIDE 5 MG TABLET PO SCH ×3 (08:26→20:44)
[2017-03-21] MEDS: LACTOBACILLUS RHAMNOSUS GG 1 CAPSULE. PO SCH ×2 (08:26→20:45)
[2017-03-21] MEDS: PANTOPRAZOLE 40 MG TABLET.DR. PO SCH (08:26)
[2017-03-21] MEDS: ALLOPURINOL 100 MG TABLET. PO SCH (08:26)
[2017-03-21] MEDS: BACLOFEN 10 MG TABLET. PO SCH ×3 (08:26→20:45)
[2017-03-21] MEDS: IV NORMAL SALINE 1000ML BAG 1,000 ML IV SCH (08:27)
--- NOTE | 2017-03-21 08:41 | PDOC ---
PROGRESS NOTES Chief Complaint Chief Complaint acute pulmonary embolism, sepsis and hypotension 1. UTI: complicated with suprapubic cath broadspectrum Abx ; Dr Simon following, 2. Sepsis: fever, tachycardia persisting. no hypotension. recheck lactate 3. Leukocytosis: 4. Encephalopathy: toxic from uro sepsis. 5. DM2: 6. HLD: on statin 7. MS: strength OK History of Present Illness History of Present Illness hypotensive overnight tachycardia today feels better, no event starting on heparin gtt for pulm embolism Vitals Vitals Vital Signs Date Time Temp Pulse Resp B/P (MAP) Pulse Ox O2 Delivery O2 Flow Rate FiO2 03/21/17 07:00 111 14 89/66 (74) 97 Nasal Cannula 2.0 03/21/17 04:00 99.2 99.2 Physical Exam General: Alert, Oriented X3, Cooperative, No acute distress Heart: Regular rate (Sinus tach with PACs), Other (S3; 2/6 systolic murmur to LLS border ) Lungs: Clear Abdomen: Soft, No tenderness Extremities: No cyanosis, Other (1+ bilateral ankle edema) Skin: No breakdown, No significant lesion Labs LABS Laboratory Tests Test 03/20/17 09:20 03/20/17 13:10 03/20/17 17:41 03/20/17 19:00 Urine Collection Type Unknown Urine Color Yellow Urine Clarity Clear Urine pH 6.0 Urine Specific [place] 1.025 Urine Protein Negative mg/dL (NEG-TRACE) Urine Glucose (UA) Negative mg/dL (NEG) Urine Ketones (Stick) Negative mg/dL (NEG) Urine Blood Negative (NEG) Urine Nitrite Negative (NEG) Urine Bilirubin Negative (NEG) Urine Urobilinogen Dipstick 0.2 mg/dL (0.2 mg/dL) Urine Leukocyte Esterase Moderate (NEG) Urine RBC 0 /HPF (0-2) Urine WBC 20-40 /HPF (0-4) Urine Squamous Epithelial Cells Few /LPF Urine Bacteria 0 /HPF (0-FEW) Urine Mucus Slight /LPF Prothrombin Time 14.1 SEC (11.7-14.0) Prothromb Time International Ratio 1.2 (0.8-1.1) Glucose (Fingerstick) 98 mg/dL (70-99) Heparin Anti-Xa Act, Unfractionated 1.10 IU/mL (0.30-0.70) Test 03/21/17 00:15 03/21/17 06:00 Heparin Anti-Xa Act, Unfractionated 0.61 IU/mL (0.30-0.70) 0.62 IU/mL (0.30-0.70) White Blood Count 9.2 x10^3/uL (4.0-11.0) Red Blood Count 3.74 x10^6/uL (3.50-5.40) Hemoglobin 10.6 g/dL (12.0-15.5) Hematocrit 32.8 % (36.0-47.0) Mean Corpuscular Volume 88 fL (79-100) Mean Corpuscular Hemoglobin 28 pg (25-35) Mean Corpuscular Hemoglobin Concent 32 g/dL (31-37) Red Cell Distribution Width 14.4 % (11.5-14.5) Platelet Count 176 x10^3/uL (140-400) Neutrophils (%) (Auto) 69 % (31-73) Lymphocytes (%) (Auto) 20 % (24-48) Monocytes (%) (Auto) 8 % (0-9) Eosinophils (%) (Auto) 3 % (0-3) Basophils (%) (Auto) 0 % (0-3) Neutrophils # (Auto) 6.3 x10^3uL (1.8-7.7) Lymphocytes # (Auto) 1.8 x10^3/uL (1.0-4.8) Monocytes # (Auto) 0.8 x10^3/uL (0.0-1.1) Eosinophils # (Auto) 0.2 x10^3/uL (0.0-0.7) Basophils # (Auto) 0.0 x10^3/uL (0.0-0.2) Prothrombin Time 14.8 SEC (11.7-14.0) Prothromb Time International Ratio 1.2 (0.8-1.1) Sodium Level 139 mmol/L (136-145) Potassium Level 4.0 mmol/L (3.5-5.1) Chloride Level 107 mmol/L (98-107) Carbon Dioxide Level 23 mmol/L (21-32) Anion Gap 9 (6-14) Blood Urea Nitrogen 11 mg/dL (7-20) Creatinine 0.9 mg/dL (0.6-1.0) Estimated GFR (Cockcroft-Gault) 73.7 Glucose Level 129 mg/dL (70-99) Calcium Level 8.1 mg/dL (8.5-10.1) Magnesium Level 1.4 mg/dL (1.8-2.4) Assessment and Plan Assessmemt and Plan Problems Medical Problems: (1) Fever Status: Acute (2) Multiple sclerosis exacerbation Status: Acute (3) UTI (urinary tract infection) Status: Acute Problems: Comment Review of Relevant I have reviewed the following items kenan (where applicable) has been applied. Labs Laboratory Tests Test 03/19/17 12:01 03/19/17 17:15 03/19/17 21:49 03/19/17 22:00 Glucose (Fingerstick) 122 mg/dL (70-99) 146 mg/dL (70-99) 162 mg/dL (70-99) White Blood Count 9.3 x10^3/uL (4.0-11.0) Red Blood Count 4.23 x10^6/uL (3.50-5.40) Hemoglobin 12.0 g/dL (12.0-15.5) Hematocrit 37.7 % (36.0-47.0) Mean Corpuscular Volume 89 fL (79-100) Mean Corpuscular Hemoglobin 28 pg (25-35) Mean Corpuscular Hemoglobin Concent 32 g/dL (31-37) Red Cell Distribution Width 14.3 % (11.5-14.5) Platelet Count 228 x10^3/uL (140-400) Neutrophils (%) (Auto) 51 % (31-73) Lymphocytes (%) (Auto) 37 % (24-48) Monocytes (%) (Auto) 8 % (0-9) Eosinophils (%) (Auto) 4 % (0-3) Basophils (%) (Auto) 0 % (0-3) Neutrophils # (Auto) 4.7 x10^3uL (1.8-7.7) Lymphocytes # (Auto) 3.4 x10^3/uL (1.0-4.8) Monocytes # (Auto) 0.7 x10^3/uL (0.0-1.1) Eosinophils # (Auto) 0.3 x10^3/uL (0.0-0.7) Basophils # (Auto) 0.0 x10^3/uL (0.0-0.2) Sodium Level 140 mmol/L (136-145) Potassium Level 4.6 mmol/L (3.5-5.1) Chloride Level 105 mmol/L (98-107) Carbon Dioxide Level 21 mmol/L (21-32) Anion Gap 14 (6-14) Blood Urea Nitrogen 16 mg/dL (7-20) Creatinine 1.1 mg/dL (0.6-1.0) Estimated GFR (Cockcroft-Gault) 58.4 BUN/Creatinine Ratio 15 (6-20) Glucose Level 171 mg/dL (70-99) Calcium Level 8.9 mg/dL (8.5-10.1) Total Bilirubin 0.2 mg/dL (0.2-1.0) Aspartate Amino Transf (AST/SGOT) 29 U/L (15-37) Alanine Aminotransferase (ALT/SGPT) 26 U/L (14-59) Alkaline Phosphatase 72 U/L (46-116) Troponin I Quantitative 0.112 ng/mL (0.000-0.055) Total Protein 6.6 g/dL (6.4-8.2) Albumin 2.9 g/dL (3.4-5.0) Albumin/Globulin Ratio 0.8 (1.0-1.7) Test 03/19/17 23:00 03/20/17 04:45 03/20/17 08:38 03/20/17 09:20 Nasal Screen MRSA (PCR) Negative (Negative) White Blood Count 7.5 x10^3/uL (4.0-11.0) Red Blood Count 4.15 x10^6/uL (3.50-5.40) Hemoglobin 11.9 g/dL (12.0-15.5) Hematocrit 36.7 % (36.0-47.0) Mean Corpuscular Volume 88 fL (79-100) Mean Corpuscular Hemoglobin 29 pg (25-35) Mean Corpuscular Hemoglobin Concent 32 g/dL (31-37) Red Cell Distribution Width 14.7 % (11.5-14.5) Platelet Count 204 x10^3/uL (140-400) Neutrophils (%) (Auto) 68 % (31-73) Lymphocytes (%) (Auto) 22 % (24-48) Monocytes (%) (Auto) 9 % (0-9) Eosinophils (%) (Auto) 1 % (0-3) Basophils (%) (Auto) 0 % (0-3) Neutrophils # (Auto) 5.1 x10^3uL (1.8-7.7) Lymphocytes # (Auto) 1.6 x10^3/uL (1.0-4.8) Monocytes # (Auto) 0.7 x10^3/uL (0.0-1.1) Eosinophils # (Auto) 0.1 x10^3/uL (0.0-0.7) Basophils # (Auto) 0.0 x10^3/uL (0.0-0.2) Sodium Level 139 mmol/L (136-145) Potassium Level 4.4 mmol/L (3.5-5.1) Chloride Level 106 mmol/L (98-107) Carbon Dioxide Level 23 mmol/L (21-32) Anion Gap 10 (6-14) Blood Urea Nitrogen 15 mg/dL (7-20) Creatinine 1.0 mg/dL (0.6-1.0) Estimated GFR (Cockcroft-Gault) 65.2 BUN/Creatinine Ratio 15 (6-20) Glucose Level 163 mg/dL (70-99) Lactic Acid Level 2.9 mmol/L (0.4-2.0) Calcium Level 8.4 mg/dL (8.5-10.1) Total Bilirubin 0.2 mg/dL (0.2-1.0) Aspartate Amino Transf (AST/SGOT) 157 U/L (15-37) Alanine Aminotransferase (ALT/SGPT) 157 U/L (14-59) Alkaline Phosphatase 103 U/L (46-116) Troponin I Quantitative 0.183 ng/mL (0.000-0.055) Total Protein 6.9 g/dL (6.4-8.2) Albumin 2.8 g/dL (3.4-5.0) Albumin/Globulin Ratio 0.7 (1.0-1.7) Procalcitonin 0.10 ng/mL (0.00-0.10) Glucose (Fingerstick) 148 mg/dL (70-99) Urine Collection Type Unknown Urine Color Yellow Urine Clarity Clear Urine pH 6.0 Urine Specific [place] 1.025 Urine Protein Negative mg/dL (NEG-TRACE) Urine Glucose (UA) Negative mg/dL (NEG) Urine Ketones (Stick) Negative mg/dL (NEG) Urine Blood Negative (NEG) Urine Nitrite Negative (NEG) Urine Bilirubin Negative (NEG) Urine Urobilinogen Dipstick 0.2 mg/dL (0.2 mg/dL) Urine Leukocyte Esterase Moderate (NEG) Urine RBC 0 /HPF (0-2) Urine WBC 20-40 /HPF (0-4) Urine Squamous Epithelial Cells Few /LPF Urine Bacteria 0 /HPF (0-FEW) Urine Mucus Slight /LPF Test 03/20/17 13:10 03/20/17 17:41 03/20/17 19:00 03/21/17 00:15 Prothrombin Time 14.1 SEC (11.7-14.0) Prothromb Time International Ratio 1.2 (0.8-1.1) Glucose (Fingerstick) 98 mg/dL (70-99) Heparin Anti-Xa Act, Unfractionated 1.10 IU/mL (0.30-0.70) 0.61 IU/mL (0.30-0.70) Test 03/21/17 06:00 White Blood Count 9.2 x10^3/uL (4.0-11.0) Red Blood Count 3.74 x10^6/uL (3.50-5.40) Hemoglobin 10.6 g/dL (12.0-15.5) Hematocrit 32.8 % (36.0-47.0) Mean Corpuscular Volume 88 fL (79-100) Mean Corpuscular Hemoglobin 28 pg (25-35) Mean Corpuscular Hemoglobin Concent 32 g/dL (31-37) Red Cell Distribution Width 14.4 % (11.5-14.5) Platelet Count 176 x10^3/uL (140-400) Neutrophils (%) (Auto) 69 % (31-73) Lymphocytes (%) (Auto) 20 % (24-48) Monocytes (%) (Auto) 8 % (0-9) Eosinophils (%) (Auto) 3 % (0-3) Basophils (%) (Auto) 0 % (0-3) Neutrophils # (Auto) 6.3 x10^3uL (1.8-7.7) Lymphocytes # (Auto) 1.8 x10^3/uL (1.0-4.8) Monocytes # (Auto) 0.8 x10^3/uL (0.0-1.1) Eosinophils # (Auto) 0.2 x10^3/uL (0.0-0.7) Basophils # (Auto) 0.0 x10^3/uL (0.0-0.2) Prothrombin Time 14.8 SEC (11.7-14.0) Prothromb Time International Ratio 1.2 (0.8-1.1) Heparin Anti-Xa Act, Unfractionated 0.62 IU/mL (0.30-0.70) Sodium Level 139 mmol/L (136-145) Potassium Level 4.0 mmol/L (3.5-5.1) Chloride Level 107 mmol/L (98-107) Carbon Dioxide Level 23 mmol/L (21-32) Anion Gap 9 (6-14) Blood Urea Nitrogen 11 mg/dL (7-20) Creatinine 0.9 mg/dL (0.6-1.0) Estimated GFR (Cockcroft-Gault) 73.7 Glucose Level 129 mg/dL (70-99) Calcium Level 8.1 mg/dL (8.5-10.1) Magnesium Level 1.4 mg/dL (1.8-2.4) Laboratory Tests Test 03/20/17 09:20 03/20/17 13:10 03/20/17 17:41 03/20/17 19:00 Urine Collection Type Unknown Urine Color Yellow Urine Clarity Clear Urine pH 6.0 Urine Specific [place] 1.025 Urine Protein Negative mg/dL (NEG-TRACE) Urine Glucose (UA) Negative mg/dL (NEG) Urine Ketones (Stick) Negative mg/dL (NEG) Urine Blood Negative (NEG) Urine Nitrite Negative (NEG) Urine Bilirubin Negative (NEG) Urine Urobilinogen Dipstick 0.2 mg/dL (0.2 mg/dL) Urine Leukocyte Esterase Moderate (NEG) Urine RBC 0 /HPF (0-2) Urine WBC 20-40 /HPF (0-4) Urine Squamous Epithelial Cells Few /LPF Urine Bacteria 0 /HPF (0-FEW) Urine Mucus Slight /LPF Prothrombin Time 14.1 SEC (11.7-14.0) Prothromb Time International Ratio 1.2 (0.8-1.1) Glucose (Fingerstick) 98 mg/dL (70-99) Heparin Anti-Xa Act, Unfractionated 1.10 IU/mL (0.30-0.70) Test 03/21/17 00:15 03/21/17 06:00 Heparin Anti-Xa Act, Unfractionated 0.61 IU/mL (0.30-0.70) 0.62 IU/mL (0.30-0.70) White Blood Count 9.2 x10^3/uL (4.0-11.0) Red Blood Count 3.74 x10^6/uL (3.50-5.40) Hemoglobin 10.6 g/dL (12.0-15.5) Hematocrit 32.8 % (36.0-47.0) Mean Corpuscular Volume 88 fL (79-100) Mean Corpuscular Hemoglobin 28 pg (25-35) Mean Corpuscular Hemoglobin Concent 32 g/dL (31-37) Red Cell Distribution Width 14.4 % (11.5-14.5) Platelet Count 176 x10^3/uL (140-400) Neutrophils (%) (Auto) 69 % (31-73) Lymphocytes (%) (Auto) 20 % (24-48) Monocytes (%) (Auto) 8 % (0-9) Eosinophils (%) (Auto) 3 % (0-3) Basophils (%) (Auto) 0 % (0-3) Neutrophils # (Auto) 6.3 x10^3uL (1.8-7.7) Lymphocytes # (Auto) 1.8 x10^3/uL (1.0-4.8) Monocytes # (Auto) 0.8 x10^3/uL (0.0-1.1) Eosinophils # (Auto) 0.2 x10^3/uL (0.0-0.7) Basophils # (Auto) 0.0 x10^3/uL (0.0-0.2) Prothrombin Time 14.8 SEC (11.7-14.0) Prothromb Time International Ratio 1.2 (0.8-1.1) Sodium Level 139 mmol/L (136-145) Potassium Level 4.0 mmol/L (3.5-5.1) Chloride Level 107 mmol/L (98-107) Carbon Dioxide Level 23 mmol/L (21-32) Anion Gap 9 (6-14) Blood Urea Nitrogen 11 mg/dL (7-20) Creatinine 0.9 mg/dL (0.6-1.0) Estimated GFR (Cockcroft-Gault) 73.7 Glucose Level 129 mg/dL (70-99) Calcium Level 8.1 mg/dL (8.5-10.1) Magnesium Level 1.4 mg/dL (1.8-2.4) Microbiology 03/20/17 Blood Culture - Preliminary, Resulted NO GROWTH AFTER 1 DAY 03/17/17 Urine Culture - Final, Complete 03/17/17 Urine Culture Result 1 (VIRGIE) - Final, Complete Medications Current Medications Sodium Chloride 1,000 ml @ 1,000 mls/hr 1X ONCE IV Last administered on 03/17 12:30; Start 03/17/17 at 12:30; Stop 03/17/17 at 13:29; Status DC Acetaminophen (Tylenol) 1,000 mg 1X ONCE PO Last administered on 03/17/17 13 :21; Start 03/17/17 at 12:30; Stop 03/17/17 at 12:31; Status DC Ceftriaxone Sodium 50 ml @ 100 mls/hr 1X ONCE IV Last administered on 14:20; Start 03/17/17 at 13:30; Stop 03/17/17 at 13:59; Status DC Ondansetron HCl (Zofran) 4 mg PRN Q8HRS PRN IV NAUSEA/VOMITING; Start at 13:30; Stop 03/18/17 at 13:29; Status DC Morphine Sulfate 2 mg PRN Q2HR PRN IV PAIN; Start 03/17/17 at 13:30; Stop at 13:29; Status DC Dextrose (Dextrose 50%-Water Syringe) 12.5 gm PRN Q15MIN PRN IV SEE COMMENTS; Start 03/17/17 at 15:00 Allopurinol (Zyloprim) 100 mg DAILY PO Last administered on 03/21/17 08:26; Start 03/18/17 at 09:00 Atorvastatin Calcium (Lipitor) 10 mg 3X/WEEK PO Last administered on 09:23; Start 03/18/17 at 09:00 Baclofen (Lioresal) 10 mg TID PO Last administered on 03/21/17 08:26; Start 03/17/17 at 21:00 Metformin HCl (Glucophage) 500 mg BIDWMEALS PO Last administered on 03/20/17 09:24; Start 03/17/17 at 17:00; Stop 03/20/17 at 11:29; Status DC Non-Formulary Medication 50 mg DAILY PO ; Start 03/18/17 at 09:00; Status UNV Pantoprazole Sodium (Protonix) 40 mg DAILYAC PO Last administered on 08:26; Start 03/18/17 at 07:30 Oxybutynin Chloride (Ditropan) 5 mg [id number] PO Last administered on 03/21/17 08:26; Start 03/17/17 at 21:00 Potassium Chloride/Dextrose/ Sod Cl 1,000 ml @ 50 mls/hr Q20H IV Last administered on 03/19/17 14:30; Start 03/17/17 at 22:30; Stop 03/19/17 at 23 :15; Status DC Cefepime HCl 1 gm/ Dextrose 50 ml @ 100 mls/hr Q8HRS IV ; Start 03/18/17 at 09 :15; Stop 03/18/17 at 09:34; Status DC Linezolid (Zyvox) 600 mg BID PO Last administered on 03/19/17 08:59; Start 03/18/17 at 09:15; Stop 03/19/17 at 11:17; Status DC Cefepime HCl (Maxipime) 1 gm Q8HRS IVP Last administered on 03/19/17 08:44; Start 03/18/17 at 10:00; Stop 03/19/17 at 11:17; Status DC Ceftriaxone Sodium 1 gm/ Dextrose 50 ml @ 100 mls/hr Q24H IV ; Start 03/19/17 at 11:30; Stop 03/19/17 at 11:30; Status DC Ceftriaxone Sodium (Rocephin) 1 gm Q24H IVP Last administered on 03/20/17 11: 17; Start 03/19/17 at 12:00 Ondansetron HCl (Zofran) 4 mg PRN Q6HRS PRN IV NAUSEA/VOMITING Last administered on 03/19/17 13:19; Start 03/19/17 at 13:15 Sodium Chloride 1,000 ml @ 200 mls/hr Q5H IV Last administered on 03/20/17 15:50; Start 03/19/17 at 23:30; Stop 03/20/17 at 20:59; Status DC Norepinephrine Bitartrate 250 ml @ As Directed STK-MED ONCE IV ; Start at 23:14; Stop 03/19/17 at 23:15; Status DC Linezolid 300 ml @ 300 mls/hr Q12HR IV Last administered on 03/21/17 08:26; Start 03/19/17 at 23:30 Norepinephrine Bitartrate 250 ml @ 0 mls/hr CONT PRN IV SEE I/O RECORD Last administered on 03/20/17 00:34; Start 03/20/17 at 00:15 Metoprolol Succinate (Toprol Xl) 25 mg 1X ONCE PO ; Start 03/20/17 at 09:00; Stop 03/20/17 at 09:01; Status DC Lactobacillus Rhamnosus (Culturelle) 1 cap BID PO Last administered on 08:26; Start 03/20/17 at 21:00 Iohexol (Omnipaque 300 Mg/ml) 75 ml 1X ONCE IV Last administered on 12:28; Start 03/20/17 at 11:30; Stop 03/20/17 at 11:31; Status DC Metformin HCl (Glucophage) 500 mg BIDWMEALS PO ; Start 03/22/17 at 17:00 Info (Do NOT chart on this entry -- for MONITORING) 1 each PRN DAILY PRN MC SEE COMMENTS; Start 03/20/17 at 11:30; Stop 03/22/17 at 11:29 Heparin Sodium (Porcine) (Heparin Sodium) 5,800 unit 1X ONCE IV Last administered on 03/20/17 13:46; Start 03/20/17 at 13:00; Stop 03/20/17 at 13 :01; Status DC Heparin Sodium/ Dextrose 500 ml @ 0 mls/hr CONT PRN IV SEE I/O RECORD Last administered on 03/20/17 13:54; Start 03/20/17 at 13:00 Heparin Sodium (Porcine) (Heparin Sodium) 2,200 unit PRN Q6HRS PRN IV FOR UFH LEVEL LESS THAN 0.2; Start 03/20/17 at 13:00 Heparin Sodium (Porcine) (Heparin Sodium) 1,100 unit PRN Q6HRS PRN IV FOR UFH LEVEL 0.2 - 0.29; Start 03/20/17 at 13:00 Warfarin Sodium (Coumadin Per Pharmacy) 1 each PRN DAILY PRN MC PER PROTOCOL Last administered on 03/20/17 14:40; Start 03/20/17 at 13:00 Warfarin Sodium (Coumadin) 5 mg 1X WARF ONCE PO Last administered on 15:50; Start 03/20/17 at 16:00; Stop 03/20/17 at 16:01; Status DC Sodium Chloride 1,000 ml @ 75 mls/hr [id number] IV Last administered on 08:27; Start 03/20/17 at 21:00 Active Scripts Active Reported Atorvastatin Calcium 10 Mg Tablet 1 Tab PO 3X/WEEK Allopurinol 100 Mg Tablet 1 Tab PO DAILY Omeprazole 20 Mg Capsule.dr 1 Cap PO DAILY Myrbetriq (Mirabegron) 50 Mg Tab.er.24h 50 Mg PO DAILY Baclofen 10 Mg Tablet 1 Tab PO TID Vesicare (Solifenacin Succinate) 10 Mg Tablet 1 Tab PO DAILY Metformin Hcl 500 Mg Tablet 500 Mg PO BIDWMEALS Vitals/I & O Vital Sign - Last 24 Hours 03/20/17 03/20/17 03/20/17 03/20/17 09:00 10:00 11:00 12:00 Temp 98.1 98.1 Pulse 124 118 120 122 Resp 19 14 14 14 B/P (MAP) 101/62 (75) 107/83 (91) 118/87 (97) 123/71 (88) Pulse Ox 93 93 94 95 O2 Delivery Room Air Room Air Room Air Room Air 03/20/17 03/20/17 03/20/17 03/20/17 12:00 13:00 14:00 15:00 Temp 98.2 98.2 Pulse 126 122 121 Resp 16 14 16 B/P (MAP) 121/80 (94) 112/88 (96) 100/62 (75) Pulse Ox 92 96 94 O2 Delivery Room Air Room Air Room Air Room Air 03/20/17 03/20/17 03/20/17 03/20/17 16:00 16:00 17:00 18:00 Pulse 120 121 123 Resp 16 14 20 B/P (MAP) 79/58 (65) 86/68 (74) 79/60 (66) Pulse Ox 95 94 95 O2 Delivery Room Air Room Air Room Air Room Air 03/20/17 03/20/17 03/20/17 03/20/17 19:00 20:00 20:00 21:00 Temp 99.0 99.0 Pulse 124 120 120 Resp 18 18 20 B/P (MAP) 90/58 (69) 98/58 (71) 106/62 (77) Pulse Ox 96 98 98 O2 Delivery Room Air Nasal Cannula Nasal Cannula Nasal Cannula O2 Flow Rate 2.0 2.0 03/20/17 03/21/17 03/21/17 03/21/17 22:00 00:00 00:01 01:00 Temp 98.7 98.7 Pulse 115 115 115 Resp 22 20 18 B/P (MAP) 108/65 (79) 114/68 (83) 113/67 (82) Pulse Ox 99 95 94 O2 Delivery Nasal Cannula Nasal Cannula Nasal Cannula Nasal Cannula O2 Flow Rate 2.0 2.0 2.0 2.0 03/21/17 03/21/17 03/21/17 03/21/17 02:00 03:00 04:00 04:00 Temp 99.2 99.2 Pulse 112 107 116 Resp 18 18 46 B/P (MAP) 118/67 (84) 103/65 (78) 88/65 (73) Pulse Ox 94 94 94 O2 Delivery Nasal Cannula Nasal Cannula Nasal Cannula Nasal Cannula O2 Flow Rate 2.0 2.0 2.0 2.0 03/21/17 03/21/17 03/21/17 05:00 06:00 07:00 Pulse 111 108 111 Resp 18 18 14 B/P (MAP) 95/58 (70) 89/50 (63) 89/66 (74) Pulse Ox 94 97 97 O2 Delivery Nasal Cannula Nasal Cannula Nasal Cannula O2 Flow Rate 2.0 2.0 2.0 Intake and Output 03/20/17 03/20/17 03/21/17 15:00 23:00 07:00 Intake Total 700 ml 2364 ml 1610 ml Output Total 270 ml 450 ml 335 ml Balance 430 ml 1914 ml 1275 ml SHELBY SOW MD Mar 21, 2017 08:41
--- NOTE | 2017-03-21 09:48 | PDOC ---
Infectious Disease Note Subjective Subjective Feeling better over-all, little bored though Denies pain Supra-pubic cath changed prior to admit Constipated, denies cramps or bloating ROS ROS GEN: Denies fevers, chills, sweats CV: Denies chest pain RESP: Denies shortness of air, cough GI: Denies n/v Vital Sign Vital Signs Vital Signs Date Time Temp Pulse Resp B/P (MAP) Pulse Ox O2 Delivery O2 Flow Rate FiO2 03/21/17 09:00 113 24 104/77 (86) 97 Nasal Cannula 2.0 03/21/17 08:00 98.4 98.4 Physical Exam PHYSICAL EXAM GENERAL: Propped up in bed, NAD LUNGS: Clear HEART: S1S2 ABD: Soft, NT, supra-pubic cath yellow colored urine EXT: Pedal edema, Kevin hose [employer]: Alert, oriented x 3 SKIN: No rash IV left side of neck, ok Labs Lab Laboratory Tests Test 03/20/17 13:10 03/20/17 17:41 03/20/17 19:00 03/21/17 00:15 Prothrombin Time 14.1 SEC (11.7-14.0) Prothromb Time International Ratio 1.2 (0.8-1.1) Glucose (Fingerstick) 98 mg/dL (70-99) Heparin Anti-Xa Act, Unfractionated 1.10 IU/mL (0.30-0.70) 0.61 IU/mL (0.30-0.70) Test 03/21/17 06:00 White Blood Count 9.2 x10^3/uL (4.0-11.0) Red Blood Count 3.74 x10^6/uL (3.50-5.40) Hemoglobin 10.6 g/dL (12.0-15.5) Hematocrit 32.8 % (36.0-47.0) Mean Corpuscular Volume 88 fL (79-100) Mean Corpuscular Hemoglobin 28 pg (25-35) Mean Corpuscular Hemoglobin Concent 32 g/dL (31-37) Red Cell Distribution Width 14.4 % (11.5-14.5) Platelet Count 176 x10^3/uL (140-400) Neutrophils (%) (Auto) 69 % (31-73) Lymphocytes (%) (Auto) 20 % (24-48) Monocytes (%) (Auto) 8 % (0-9) Eosinophils (%) (Auto) 3 % (0-3) Basophils (%) (Auto) 0 % (0-3) Neutrophils # (Auto) 6.3 x10^3uL (1.8-7.7) Lymphocytes # (Auto) 1.8 x10^3/uL (1.0-4.8) Monocytes # (Auto) 0.8 x10^3/uL (0.0-1.1) Eosinophils # (Auto) 0.2 x10^3/uL (0.0-0.7) Basophils # (Auto) 0.0 x10^3/uL (0.0-0.2) Prothrombin Time 14.8 SEC (11.7-14.0) Prothromb Time International Ratio 1.2 (0.8-1.1) Heparin Anti-Xa Act, Unfractionated 0.62 IU/mL (0.30-0.70) Sodium Level 139 mmol/L (136-145) Potassium Level 4.0 mmol/L (3.5-5.1) Chloride Level 107 mmol/L (98-107) Carbon Dioxide Level 23 mmol/L (21-32) Anion Gap 9 (6-14) Blood Urea Nitrogen 11 mg/dL (7-20) Creatinine 0.9 mg/dL (0.6-1.0) Estimated GFR (Cockcroft-Gault) 73.7 Glucose Level 129 mg/dL (70-99) Calcium Level 8.1 mg/dL (8.5-10.1) Magnesium Level 1.4 mg/dL (1.8-2.4) Micro BC NGTD Objective Assessment UTI - POA Hypotension , off Levophed Fever - better Lactic acidosis Amoxicillin allergy - rash Acute Encephalopathy - better DM MS Plan Plan of Care Cont Zyvox and Rocephin Procalcitonin 0.10 Repeat urine culture pending Pt is clnically improving though slowly D/W ALGEBRAIST AGREE WITH ABOVE BRAYAN JAMES APRN Mar 21, 2017 09:48 ALAN DENSON MD Mar 21, 2017 16:47
[2017-03-21] MEDS: DOCUSATE SODIUM 100 MG CAPSULE. PO PRN (10:14)
[2017-03-21] MEDS: IPRATRPIUM/ALBUTEROL 0.5/2.5MG 3 ML NEBU. NEB SCH ×3 (11:28→19:48)
--- NOTE | 2017-03-21 12:22 | PDOC ---
PULMONARY PROGRESS NOTES Subjective CTA with extensive bilateral PE Had increase dyspnea post BM later this morning Vitals Vital Signs Date Time Temp Pulse Resp B/P (MAP) Pulse Ox O2 Delivery O2 Flow Rate FiO2 03/21/17 12:00 Bi-pap 03/21/17 12:00 96.6 133 22 109/76 (87) 100 96.6 03/21/17 10:00 2.0 General: Alert Lungs: Other (few rhonchi) Cardiovascular: S1 Abdomen: Soft Neuro Exam: Alert Extremities: No Edema Skin: Warm Labs Laboratory Tests Test 03/19/17 17:15 03/19/17 21:49 03/19/17 22:00 03/19/17 23:00 Glucose (Fingerstick) 146 mg/dL (70-99) 162 mg/dL (70-99) White Blood Count 9.3 x10^3/uL (4.0-11.0) Red Blood Count 4.23 x10^6/uL (3.50-5.40) Hemoglobin 12.0 g/dL (12.0-15.5) Hematocrit 37.7 % (36.0-47.0) Mean Corpuscular Volume 89 fL (79-100) Mean Corpuscular Hemoglobin 28 pg (25-35) Mean Corpuscular Hemoglobin Concent 32 g/dL (31-37) Red Cell Distribution Width 14.3 % (11.5-14.5) Platelet Count 228 x10^3/uL (140-400) Neutrophils (%) (Auto) 51 % (31-73) Lymphocytes (%) (Auto) 37 % (24-48) Monocytes (%) (Auto) 8 % (0-9) Eosinophils (%) (Auto) 4 % (0-3) Basophils (%) (Auto) 0 % (0-3) Neutrophils # (Auto) 4.7 x10^3uL (1.8-7.7) Lymphocytes # (Auto) 3.4 x10^3/uL (1.0-4.8) Monocytes # (Auto) 0.7 x10^3/uL (0.0-1.1) Eosinophils # (Auto) 0.3 x10^3/uL (0.0-0.7) Basophils # (Auto) 0.0 x10^3/uL (0.0-0.2) Sodium Level 140 mmol/L (136-145) Potassium Level 4.6 mmol/L (3.5-5.1) Chloride Level 105 mmol/L (98-107) Carbon Dioxide Level 21 mmol/L (21-32) Anion Gap 14 (6-14) Blood Urea Nitrogen 16 mg/dL (7-20) Creatinine 1.1 mg/dL (0.6-1.0) Estimated GFR (Cockcroft-Gault) 58.4 BUN/Creatinine Ratio 15 (6-20) Glucose Level 171 mg/dL (70-99) Calcium Level 8.9 mg/dL (8.5-10.1) Total Bilirubin 0.2 mg/dL (0.2-1.0) Aspartate Amino Transf (AST/SGOT) 29 U/L (15-37) Alanine Aminotransferase (ALT/SGPT) 26 U/L (14-59) Alkaline Phosphatase 72 U/L (46-116) Troponin I Quantitative 0.112 ng/mL (0.000-0.055) Total Protein 6.6 g/dL (6.4-8.2) Albumin 2.9 g/dL (3.4-5.0) Albumin/Globulin Ratio 0.8 (1.0-1.7) Nasal Screen MRSA (PCR) Negative (Negative) Test 03/20/17 04:45 03/20/17 08:38 03/20/17 09:20 03/20/17 13:10 White Blood Count 7.5 x10^3/uL (4.0-11.0) Red Blood Count 4.15 x10^6/uL (3.50-5.40) Hemoglobin 11.9 g/dL (12.0-15.5) Hematocrit 36.7 % (36.0-47.0) Mean Corpuscular Volume 88 fL (79-100) Mean Corpuscular Hemoglobin 29 pg (25-35) Mean Corpuscular Hemoglobin Concent 32 g/dL (31-37) Red Cell Distribution Width 14.7 % (11.5-14.5) Platelet Count 204 x10^3/uL (140-400) Neutrophils (%) (Auto) 68 % (31-73) Lymphocytes (%) (Auto) 22 % (24-48) Monocytes (%) (Auto) 9 % (0-9) Eosinophils (%) (Auto) 1 % (0-3) Basophils (%) (Auto) 0 % (0-3) Neutrophils # (Auto) 5.1 x10^3uL (1.8-7.7) Lymphocytes # (Auto) 1.6 x10^3/uL (1.0-4.8) Monocytes # (Auto) 0.7 x10^3/uL (0.0-1.1) Eosinophils # (Auto) 0.1 x10^3/uL (0.0-0.7) Basophils # (Auto) 0.0 x10^3/uL (0.0-0.2) Sodium Level 139 mmol/L (136-145) Potassium Level 4.4 mmol/L (3.5-5.1) Chloride Level 106 mmol/L (98-107) Carbon Dioxide Level 23 mmol/L (21-32) Anion Gap 10 (6-14) Blood Urea Nitrogen 15 mg/dL (7-20) Creatinine 1.0 mg/dL (0.6-1.0) Estimated GFR (Cockcroft-Gault) 65.2 BUN/Creatinine Ratio 15 (6-20) Glucose Level 163 mg/dL (70-99) Lactic Acid Level 2.9 mmol/L (0.4-2.0) Calcium Level 8.4 mg/dL (8.5-10.1) Total Bilirubin 0.2 mg/dL (0.2-1.0) Aspartate Amino Transf (AST/SGOT) 157 U/L (15-37) Alanine Aminotransferase (ALT/SGPT) 157 U/L (14-59) Alkaline Phosphatase 103 U/L (46-116) Troponin I Quantitative 0.183 ng/mL (0.000-0.055) Total Protein 6.9 g/dL (6.4-8.2) Albumin 2.8 g/dL (3.4-5.0) Albumin/Globulin Ratio 0.7 (1.0-1.7) Procalcitonin 0.10 ng/mL (0.00-0.10) Glucose (Fingerstick) 148 mg/dL (70-99) Urine Collection Type Unknown Urine Color Yellow Urine Clarity Clear Urine pH 6.0 Urine Specific [place] 1.025 Urine Protein Negative mg/dL (NEG-TRACE) Urine Glucose (UA) Negative mg/dL (NEG) Urine Ketones (Stick) Negative mg/dL (NEG) Urine Blood Negative (NEG) Urine Nitrite Negative (NEG) Urine Bilirubin Negative (NEG) Urine Urobilinogen Dipstick 0.2 mg/dL (0.2 mg/dL) Urine Leukocyte Esterase Moderate (NEG) Urine RBC 0 /HPF (0-2) Urine WBC 20-40 /HPF (0-4) Urine Squamous Epithelial Cells Few /LPF Urine Bacteria 0 /HPF (0-FEW) Urine Mucus Slight /LPF Prothrombin Time 14.1 SEC (11.7-14.0) Prothromb Time International Ratio 1.2 (0.8-1.1) Test 03/20/17 17:41 03/20/17 19:00 03/21/17 00:15 03/21/17 06:00 Glucose (Fingerstick) 98 mg/dL (70-99) Heparin Anti-Xa Act, Unfractionated 1.10 IU/mL (0.30-0.70) 0.61 IU/mL (0.30-0.70) 0.62 IU/mL (0.30-0.70) White Blood Count 9.2 x10^3/uL (4.0-11.0) Red Blood Count 3.74 x10^6/uL (3.50-5.40) Hemoglobin 10.6 g/dL (12.0-15.5) Hematocrit 32.8 % (36.0-47.0) Mean Corpuscular Volume 88 fL (79-100) Mean Corpuscular Hemoglobin 28 pg (25-35) Mean Corpuscular Hemoglobin Concent 32 g/dL (31-37) Red Cell Distribution Width 14.4 % (11.5-14.5) Platelet Count 176 x10^3/uL (140-400) Neutrophils (%) (Auto) 69 % (31-73) Lymphocytes (%) (Auto) 20 % (24-48) Monocytes (%) (Auto) 8 % (0-9) Eosinophils (%) (Auto) 3 % (0-3) Basophils (%) (Auto) 0 % (0-3) Neutrophils # (Auto) 6.3 x10^3uL (1.8-7.7) Lymphocytes # (Auto) 1.8 x10^3/uL (1.0-4.8) Monocytes # (Auto) 0.8 x10^3/uL (0.0-1.1) Eosinophils # (Auto) 0.2 x10^3/uL (0.0-0.7) Basophils # (Auto) 0.0 x10^3/uL (0.0-0.2) Prothrombin Time 14.8 SEC (11.7-14.0) Prothromb Time International Ratio 1.2 (0.8-1.1) Sodium Level 139 mmol/L (136-145) Potassium Level 4.0 mmol/L (3.5-5.1) Chloride Level 107 mmol/L (98-107) Carbon Dioxide Level 23 mmol/L (21-32) Anion Gap 9 (6-14) Blood Urea Nitrogen 11 mg/dL (7-20) Creatinine 0.9 mg/dL (0.6-1.0) Estimated GFR (Cockcroft-Gault) 73.7 Glucose Level 129 mg/dL (70-99) Calcium Level 8.1 mg/dL (8.5-10.1) Magnesium Level 1.4 mg/dL (1.8-2.4) Laboratory Tests Test 03/20/17 13:10 03/20/17 17:41 03/20/17 19:00 03/21/17 00:15 Prothrombin Time 14.1 SEC (11.7-14.0) Prothromb Time International Ratio 1.2 (0.8-1.1) Glucose (Fingerstick) 98 mg/dL (70-99) Heparin Anti-Xa Act, Unfractionated 1.10 IU/mL (0.30-0.70) 0.61 IU/mL (0.30-0.70) Test 03/21/17 06:00 White Blood Count 9.2 x10^3/uL (4.0-11.0) Red Blood Count 3.74 x10^6/uL (3.50-5.40) Hemoglobin 10.6 g/dL (12.0-15.5) Hematocrit 32.8 % (36.0-47.0) Mean Corpuscular Volume 88 fL (79-100) Mean Corpuscular Hemoglobin 28 pg (25-35) Mean Corpuscular Hemoglobin Concent 32 g/dL (31-37) Red Cell Distribution Width 14.4 % (11.5-14.5) Platelet Count 176 x10^3/uL (140-400) Neutrophils (%) (Auto) 69 % (31-73) Lymphocytes (%) (Auto) 20 % (24-48) Monocytes (%) (Auto) 8 % (0-9) Eosinophils (%) (Auto) 3 % (0-3) Basophils (%) (Auto) 0 % (0-3) Neutrophils # (Auto) 6.3 x10^3uL (1.8-7.7) Lymphocytes # (Auto) 1.8 x10^3/uL (1.0-4.8) Monocytes # (Auto) 0.8 x10^3/uL (0.0-1.1) Eosinophils # (Auto) 0.2 x10^3/uL (0.0-0.7) Basophils # (Auto) 0.0 x10^3/uL (0.0-0.2) Prothrombin Time 14.8 SEC (11.7-14.0) Prothromb Time International Ratio 1.2 (0.8-1.1) Heparin Anti-Xa Act, Unfractionated 0.62 IU/mL (0.30-0.70) Sodium Level 139 mmol/L (136-145) Potassium Level 4.0 mmol/L (3.5-5.1) Chloride Level 107 mmol/L (98-107) Carbon Dioxide Level 23 mmol/L (21-32) Anion Gap 9 (6-14) Blood Urea Nitrogen 11 mg/dL (7-20) Creatinine 0.9 mg/dL (0.6-1.0) Estimated GFR (Cockcroft-Gault) 73.7 Glucose Level 129 mg/dL (70-99) Calcium Level 8.1 mg/dL (8.5-10.1) Magnesium Level 1.4 mg/dL (1.8-2.4) Medications Active Scripts Medications Dose Route/Sig Max Daily Dose Days Date Category Atorvastatin Calcium 10 Mg Tablet 1 Tab PO 3X/WEEK 03/17/17 Reported Allopurinol 100 Mg Tablet 1 Tab PO DAILY 03/17/17 Reported Omeprazole 20 Mg Capsule.dr 1 Cap PO DAILY 03/17/17 Reported Myrbetriq (Mirabegron) 50 Mg Tab.er.24h 50 Mg PO DAILY 03/17/17 Reported Baclofen 10 Mg Tablet 1 Tab PO TID 03/17/17 Reported Vesicare (Solifenacin Succinate) 10 Mg Tablet 1 Tab PO DAILY 03/17/17 Reported Metformin Hcl 500 Mg Tablet 500 Mg PO BIDWMEALS 03/17/17 Reported Impression . 1. Syncopal episode with a brief CPR. She has elevated right-sided pressure and dilatation of the right ventricle and a markedly elevated right hemidiaphragm. CTA c/w bilateral extensive PE 2. Subjective fever in a patient who has multiple sclerosis and had a suprapubic catheter and early sepsis would be another etiology. 3. Shock, could be combination of early sepsis versus related to pulmonary embolism versus hypovolemia. 4. No significant history of tobacco use. 5. Fever secondary to infectious etiology. Plan . 1. DC IVF. CXR to r/o CHF/ right heart failure Initiate BIPAP 2. Heparin / Coumadin for PE, may need life long PE. 3. Continue antibiotics, Zyvox and Rocephin. 4. Follow urine culture. for urosepsis. 5. dopplers 6. Hold off TPA Discussed with the patient's family. Discussed with RN. cct 30 min LUH GUTIERREZ MD Mar 21, 2017 12:22
[2017-03-21 12:23] LABS: HCO3 ABG 14 mmol/L (21-28); PCO2 ABG 25 mmHg (35-46); PH ABG 7.38 (7.35-7.45); PO2 ABG 109 mmHg (65-108); SAT O2 ABG 98 % (92-99)
[2017-03-21] MEDS: HEPARIN 25,000UTS/500ML PREMIX 500 ML IV PRN (12:24)
[2017-03-21] MEDS: cefTRIAXone IV Push 1 GM VIAL. IVP SCH (12:25)
[2017-03-21 12:36] LABS: FIO2 ABG 60
--- NOTE | 2017-03-21 13:05 | RAD ---
AP PORTABLE CHEST Clinical Indication: increased SOA. Comparison: AP chest 03/17/2017. Findings: Atherosclerotic aortic arch. The cardiomediastinal silhouette is normal. Stable elevation right hemidiaphragm. Discoid atelectasis in the right lung base. Lungs otherwise clear. There is no pneumothorax. No pleural effusion is appreciated. There is no acute bone abnormality. IMPRESSION: Right basilar atelectasis.
[2017-03-21] MEDS ORDERED: WARFARIN 6 MG TABLET. PO ONE (16:00)
[2017-03-21] MEDS: PHENOL ORAL SPRAY 177ML BOTTLE. PO PRN (18:13)
[2017-03-21] MEDS ORDERED: IV NORMAL SALINE 1000ML BAG 1,000 ML IV SCH (18:30)
[2017-03-21] MEDS ORDERED: IV NORMAL SALINE 500ML BAG 500 ML IV ONE (18:30)
[2017-03-21] MEDS: ALPRAZolam 0.25 MG TABLET PO PRN (22:20)
[2017-03-21] MEDS: ALBUTEROL SULFATE 2.5 MG/3 ML NEBU. NEB PRN (23:49)
[2017-03-22] VITALS (24 sets, daily range): BP systolic 85–140; BP diastolic 61–98
[2017-03-22] MEDS: oxyCODONE/APAP 5/325 1 TAB TABLET PO PRN ×2 (03:52→04:52)
[2017-03-22 05:23] LABS: HEMATOCRIT 33.8 % (36.0-47.0); HEMOGLOBIN 10.9 g/dL (12.0-15.5); RED BLOOD COUNT 3.87 x10^6/uL (3.50-5.40); RED CELL DISTRIBUTION WIDTH 14.5 % (11.5-14.5); WHITE BLOOD COUNT 14.5 x10^3/uL (4.0-11.0)
[2017-03-22 06:02] LABS: ALBUMIN 2.7 g/dL (3.4-5.0); ALBUMIN/GLOBULIN RATIO 0.7 (1.0-1.7); CALCIUM 8.4 mg/dL (8.5-10.1); CREATININE 0.8 mg/dL (0.6-1.0); GFR 84.4; POTASSIUM 3.6 mmol/L (3.5-5.1); TOTAL BILIRUBIN 0.2 mg/dL (0.2-1.0); TOTAL PROTEIN 6.8 g/dL (6.4-8.2)
[2017-03-22 06:06] LABS: INR 1.4 (0.8-1.1); PROTHROMBIN TIME PATIENT 16.2 SEC (11.7-14.0)
[2017-03-22] MEDS: IPRATRPIUM/ALBUTEROL 0.5/2.5MG 3 ML NEBU. NEB SCH ×4 (07:49→19:59)
[2017-03-22] MEDS ORDERED: PHENOL ORAL SPRAY 177ML BOTTLE. PO PRN (09:30)
[2017-03-22] MEDS: LACTOBACILLUS RHAMNOSUS GG 1 CAPSULE. PO SCH ×2 (09:54→21:00)
[2017-03-22] MEDS: BACLOFEN 10 MG TABLET. PO SCH ×3 (09:54→21:54)
[2017-03-22] MEDS: DOCUSATE SODIUM 100 MG CAPSULE. PO PRN (09:54)
[2017-03-22] MEDS: PANTOPRAZOLE 40 MG TABLET.DR. PO SCH (09:54)
[2017-03-22] MEDS: OXYBUTYNIN CHLORIDE 5 MG TABLET PO SCH ×3 (09:54→21:54)
[2017-03-22] MEDS: HEPARIN 25,000UTS/500ML PREMIX 500 ML IV PRN (09:56)
[2017-03-22] MEDS: ALLOPURINOL 100 MG TABLET. PO SCH (09:57)
[2017-03-22] MEDS: ALPRAZolam 0.25 MG TABLET PO PRN (10:11)
--- NOTE | 2017-03-22 10:18 | PDOC ---
Infectious Disease Note Subjective Subjective According to RN, patient had an syncope episode yesterday after transferring to [facility] as well as respiratory distress. Now on BiPAP FiO2 45% Patient says she is feeling better Throat is dry ROS ROS GEN: Denies fevers, chills CV: Denies chest pain GI: Denies n/v/d Vital Sign Vital Signs Vital Signs Date Time Temp Pulse Resp B/P (MAP) Pulse Ox O2 Delivery O2 Flow Rate FiO2 03/22/17 08:00 98.6 125 34 119/87 (98) 100 BiPAP/CPAP 98.6 03/22/17 08:00 3.0 Physical Exam PHYSICAL EXAM GENERAL: Propped up in bed, on BiPAP, NAD LUNGS: Clear anteriorly HEART: S1S2 ABD: Soft, NT, supra-pubic cath yellow colored urine EXT: Pedal edema, Kevin hose [employer]: Awake, responds appropriately SKIN: No rash LEJ & PIV: ok Labs Lab Laboratory Tests Test 03/21/17 12:20 03/22/17 03:00 O2 Saturation 98 % (92-99) Arterial Blood pH 7.38 (7.35-7.45) Arterial Blood pCO2 at Patient Temp 25 mmHg (35-46) Arterial Blood pO2 at Patient Temp 109 mmHg (65-108) Arterial Blood HCO3 14 mmol/L (21-28) Arterial Blood Base Excess -9 mmol/L (-3-3) FiO2 60 White Blood Count 14.5 x10^3/uL (4.0-11.0) Red Blood Count 3.87 x10^6/uL (3.50-5.40) Hemoglobin 10.9 g/dL (12.0-15.5) Hematocrit 33.8 % (36.0-47.0) Mean Corpuscular Volume 87 fL (79-100) Mean Corpuscular Hemoglobin 28 pg (25-35) Mean Corpuscular Hemoglobin Concent 32 g/dL (31-37) Red Cell Distribution Width 14.5 % (11.5-14.5) Platelet Count 197 x10^3/uL (140-400) Prothrombin Time 16.2 SEC (11.7-14.0) Prothromb Time International Ratio 1.4 (0.8-1.1) Heparin Anti-Xa Act, Unfractionated 0.36 IU/mL (0.30-0.70) Sodium Level 137 mmol/L (136-145) Potassium Level 3.6 mmol/L (3.5-5.1) Chloride Level 104 mmol/L (98-107) Carbon Dioxide Level 14 mmol/L (21-32) Anion Gap 19 (6-14) Blood Urea Nitrogen 14 mg/dL (7-20) Creatinine 0.8 mg/dL (0.6-1.0) Estimated GFR (Cockcroft-Gault) 84.4 BUN/Creatinine Ratio 18 (6-20) Glucose Level 198 mg/dL (70-99) Calcium Level 8.4 mg/dL (8.5-10.1) Total Bilirubin 0.2 mg/dL (0.2-1.0) Aspartate Amino Transf (AST/SGOT) 53 U/L (15-37) Alanine Aminotransferase (ALT/SGPT) 91 U/L (14-59) Alkaline Phosphatase 92 U/L (46-116) Total Protein 6.8 g/dL (6.4-8.2) Albumin 2.7 g/dL (3.4-5.0) Albumin/Globulin Ratio 0.7 (1.0-1.7) Micro BC NGTD Objective Assessment Respiratory failure, now on BiPAP UTI - POA Hypotension , off Levophed Fever - better Lactic acidosis Amoxicillin allergy - rash Acute Encephalopathy - better DM MS PE, bilat Plan Plan of Care Cont Zyvox and Rocephin Procalcitonin 0.10 Repeat urine culture still pending f/u labs pt requiring bipap, metabolic acidosis, cxr rt atelectasis have empirically broadened her coverage of abx to cefepime,continue zyvox bc are neg till now repeat uc has staph aureus and enterococcus , 25,000 copies, continue supportive care d/w family at bedside BRAYAN LYNN APRN Mar 22, 2017 10:18 ALAN DENSON MD Mar 22, 2017 16:57
--- NOTE | 2017-03-22 10:22 | PDOC ---
PULMONARY PROGRESS NOTES Subjective CTA with extensive bilateral PE Had increase dyspnea , paradoxical breathing / requiring BIPAP since yesterday BP stable Vitals Vital Signs Date Time Temp Pulse Resp B/P (MAP) Pulse Ox O2 Delivery O2 Flow Rate FiO2 03/22/17 08:00 98.6 125 34 119/87 (98) 100 BiPAP/CPAP 98.6 03/22/17 08:00 3.0 General: Alert, Mild Distress Lungs: Other (few rhonchi) Cardiovascular: S1 Abdomen: Soft Neuro Exam: Alert Extremities: No Edema Skin: Warm Labs Laboratory Tests Test 03/20/17 13:10 03/20/17 17:41 03/20/17 19:00 03/21/17 00:15 Prothrombin Time 14.1 SEC (11.7-14.0) Prothromb Time International Ratio 1.2 (0.8-1.1) Glucose (Fingerstick) 98 mg/dL (70-99) Heparin Anti-Xa Act, Unfractionated 1.10 IU/mL (0.30-0.70) 0.61 IU/mL (0.30-0.70) Test 03/21/17 06:00 03/21/17 12:20 03/22/17 03:00 White Blood Count 9.2 x10^3/uL (4.0-11.0) 14.5 x10^3/uL (4.0-11.0) Red Blood Count 3.74 x10^6/uL (3.50-5.40) 3.87 x10^6/uL (3.50-5.40) Hemoglobin 10.6 g/dL (12.0-15.5) 10.9 g/dL (12.0-15.5) Hematocrit 32.8 % (36.0-47.0) 33.8 % (36.0-47.0) Mean Corpuscular Volume 88 fL (79-100) 87 fL (79-100) Mean Corpuscular Hemoglobin 28 pg (25-35) 28 pg (25-35) Mean Corpuscular Hemoglobin Concent 32 g/dL (31-37) 32 g/dL (31-37) Red Cell Distribution Width 14.4 % (11.5-14.5) 14.5 % (11.5-14.5) Platelet Count 176 x10^3/uL (140-400) 197 x10^3/uL (140-400) Neutrophils (%) (Auto) 69 % (31-73) Lymphocytes (%) (Auto) 20 % (24-48) Monocytes (%) (Auto) 8 % (0-9) Eosinophils (%) (Auto) 3 % (0-3) Basophils (%) (Auto) 0 % (0-3) Neutrophils # (Auto) 6.3 x10^3uL (1.8-7.7) Lymphocytes # (Auto) 1.8 x10^3/uL (1.0-4.8) Monocytes # (Auto) 0.8 x10^3/uL (0.0-1.1) Eosinophils # (Auto) 0.2 x10^3/uL (0.0-0.7) Basophils # (Auto) 0.0 x10^3/uL (0.0-0.2) Prothrombin Time 14.8 SEC (11.7-14.0) 16.2 SEC (11.7-14.0) Prothromb Time International Ratio 1.2 (0.8-1.1) 1.4 (0.8-1.1) Heparin Anti-Xa Act, Unfractionated 0.62 IU/mL (0.30-0.70) 0.36 IU/mL (0.30-0.70) Sodium Level 139 mmol/L (136-145) 137 mmol/L (136-145) Potassium Level 4.0 mmol/L (3.5-5.1) 3.6 mmol/L (3.5-5.1) Chloride Level 107 mmol/L (98-107) 104 mmol/L (98-107) Carbon Dioxide Level 23 mmol/L (21-32) 14 mmol/L (21-32) Anion Gap 9 (6-14) 19 (6-14) Blood Urea Nitrogen 11 mg/dL (7-20) 14 mg/dL (7-20) Creatinine 0.9 mg/dL (0.6-1.0) 0.8 mg/dL (0.6-1.0) Estimated GFR (Cockcroft-Gault) 73.7 84.4 Glucose Level 129 mg/dL (70-99) 198 mg/dL (70-99) Calcium Level 8.1 mg/dL (8.5-10.1) 8.4 mg/dL (8.5-10.1) Magnesium Level 1.4 mg/dL (1.8-2.4) O2 Saturation 98 % (92-99) Arterial Blood pH 7.38 (7.35-7.45) Arterial Blood pCO2 at Patient Temp 25 mmHg (35-46) Arterial Blood pO2 at Patient Temp 109 mmHg (65-108) Arterial Blood HCO3 14 mmol/L (21-28) Arterial Blood Base Excess -9 mmol/L (-3-3) FiO2 60 BUN/Creatinine Ratio 18 (6-20) Total Bilirubin 0.2 mg/dL (0.2-1.0) Aspartate Amino Transf (AST/SGOT) 53 U/L (15-37) Alanine Aminotransferase (ALT/SGPT) 91 U/L (14-59) Alkaline Phosphatase 92 U/L (46-116) Total Protein 6.8 g/dL (6.4-8.2) Albumin 2.7 g/dL (3.4-5.0) Albumin/Globulin Ratio 0.7 (1.0-1.7) Laboratory Tests Test 03/21/17 12:20 03/22/17 03:00 O2 Saturation 98 % (92-99) Arterial Blood pH 7.38 (7.35-7.45) Arterial Blood pCO2 at Patient Temp 25 mmHg (35-46) Arterial Blood pO2 at Patient Temp 109 mmHg (65-108) Arterial Blood HCO3 14 mmol/L (21-28) Arterial Blood Base Excess -9 mmol/L (-3-3) FiO2 60 White Blood Count 14.5 x10^3/uL (4.0-11.0) Red Blood Count 3.87 x10^6/uL (3.50-5.40) Hemoglobin 10.9 g/dL (12.0-15.5) Hematocrit 33.8 % (36.0-47.0) Mean Corpuscular Volume 87 fL (79-100) Mean Corpuscular Hemoglobin 28 pg (25-35) Mean Corpuscular Hemoglobin Concent 32 g/dL (31-37) Red Cell Distribution Width 14.5 % (11.5-14.5) Platelet Count 197 x10^3/uL (140-400) Prothrombin Time 16.2 SEC (11.7-14.0) Prothromb Time International Ratio 1.4 (0.8-1.1) Heparin Anti-Xa Act, Unfractionated 0.36 IU/mL (0.30-0.70) Sodium Level 137 mmol/L (136-145) Potassium Level 3.6 mmol/L (3.5-5.1) Chloride Level 104 mmol/L (98-107) Carbon Dioxide Level 14 mmol/L (21-32) Anion Gap 19 (6-14) Blood Urea Nitrogen 14 mg/dL (7-20) Creatinine 0.8 mg/dL (0.6-1.0) Estimated GFR (Cockcroft-Gault) 84.4 BUN/Creatinine Ratio 18 (6-20) Glucose Level 198 mg/dL (70-99) Calcium Level 8.4 mg/dL (8.5-10.1) Total Bilirubin 0.2 mg/dL (0.2-1.0) Aspartate Amino Transf (AST/SGOT) 53 U/L (15-37) Alanine Aminotransferase (ALT/SGPT) 91 U/L (14-59) Alkaline Phosphatase 92 U/L (46-116) Total Protein 6.8 g/dL (6.4-8.2) Albumin 2.7 g/dL (3.4-5.0) Albumin/Globulin Ratio 0.7 (1.0-1.7) Medications Active Scripts Medications Dose Route/Sig Max Daily Dose Days Date Category Atorvastatin Calcium 10 Mg Tablet 1 Tab PO 3X/WEEK 03/17/17 Reported Allopurinol 100 Mg Tablet 1 Tab PO DAILY 03/17/17 Reported Omeprazole 20 Mg Capsule.dr 1 Cap PO DAILY 03/17/17 Reported Myrbetriq (Mirabegron) 50 Mg Tab.er.24h 50 Mg PO DAILY 03/17/17 Reported Baclofen 10 Mg Tablet 1 Tab PO TID 03/17/17 Reported Vesicare (Solifenacin Succinate) 10 Mg Tablet 1 Tab PO DAILY 03/17/17 Reported Metformin Hcl 500 Mg Tablet 500 Mg PO BIDWMEALS 03/17/17 Reported Impression . 1. Syncopal episode with a brief CPR POA. Echo with elevated right-sided pressure and dilatation of the right ventricle and a markedly elevated right hemidiaphragm. CTA c/w bilateral extensive PE 2. Subjective fever in a patient who has multiple sclerosis and had a suprapubic catheter and early sepsis due UTI 3. Shock POA, could be combination of early sepsis versus related to hypovolemia. resolved. I suspect she is still dry 4. No significant history of tobacco use. 5. Fever secondary to infectious etiology. 6. Progressive dyspnea since yesterday due to worsening metabolic acidosis/ increasing lactic acidosis, rather then PE. Plan . 1. TRY IVF. CXR with no CHF/ Initiate BIPAP 2. Heparin / Coumadin for PE, will need life long AC due to persistent immobility from MS 3. Continue antibiotics, Zyvox . Change rocephin to cefepime to cover for gram negative sepsis 4. Follow urine culture./ urosepsis 5. dopplers done, results still pending 6. No need for TPA/ not in shock anymore 7. Stat ABG c/w worsening metabolic acidosis due to sepsis. antibiotics broadened Discussed with the patient's family. Discussed with RN. d/w patient advance directives. she does not want intubation/ CPR. I concur. DNR/DNI cct 30 min LUH GUTIERREZ MD Mar 22, 2017 10:22
--- NOTE | 2017-03-22 10:29 | RAD ---
BILATERAL LOWER EXTREMITY VENOUS DOPPLER ULTRASOUND Clinical indication:rule out DVT, possible PE, leg edema Comparison: None. Technique: Real-time grayscale, color-flow, and Doppler spectral waveform analysis of the deep vein system of the lower extremities is performed. Findings: All visualized vein segments compress, augment, and demonstrate color flow normally. There is no evidence of thrombus. IMPRESSION: No evidence of deep vein thrombosis in the right or left lower extremity.
[2017-03-22] MEDS ORDERED: IV NORMAL SALINE 500ML BAG 500 ML IV ONE (10:30)
[2017-03-22 10:55] LABS: HCO3 ABG 10 mmol/L (21-28); PCO2 ABG 25 mmHg (35-46); PH ABG 7.23 (7.35-7.45); PO2 ABG 79 mmHg (65-108); SAT O2 ABG 92 % (92-99)
[2017-03-22] MEDS ORDERED: SODIUM BICARB ADULT 8.4% 50 MEQ/50 ML DISP.SYRIN. IV ONE (11:00)
--- NOTE | 2017-03-22 12:05 | PDOC2 ---
CONSULT Date of Consult Date of Consult DATE: 03/22/17 TIME: 12:03 Reason for Consult Reason for Consult: Oliguria Referring Physician Referring Physician: Dr Pickett Identification/Chief Complaint Chief Complaint SOB, AMS Problems: Source Source: Chart review, Patient History of Present Illness Reason for Visit: as dictated Past Medical History Cardiovascular: Hyperlipidemia Pulmonary: Pulmonary embolus, Other (No pertinent history) CENTRAL NERVOUS SYSTEM: Other (multiple sclerosis) GI: GERD Hepatobiliary: No pertinent hx Psych: No pertinent hx Musculoskeletal: Osteoarthritis Rheumatologic: Gout Infectious disease: No pertinent hx ENT: No pertinent hx Renal/: UTI, Other (neruogenic bladder) Endocrine: Diabetes (2) Dermatology: No pertinent hx Past Surgical History Past Surgical History: Appendectomy, Hysterectomy, Other (suprapubic catheter placement) Social History No ALCOHOL: none Drugs: None Lives: with Family Current Problem List Problem List Problems Medical Problems: (1) Fever Status: Acute (2) Multiple sclerosis exacerbation Status: Acute (3) UTI (urinary tract infection) Status: Acute Current Medications Current Medications Current Medications Sodium Chloride 1,000 ml @ 1,000 mls/hr 1X ONCE IV Last administered on 03/17 12:30; Start 03/17/17 at 12:30; Stop 03/17/17 at 13:29; Status DC Acetaminophen (Tylenol) 1,000 mg 1X ONCE PO Last administered on 03/17/17 13 :21; Start 03/17/17 at 12:30; Stop 03/17/17 at 12:31; Status DC Ceftriaxone Sodium 50 ml @ 100 mls/hr 1X ONCE IV Last administered on 14:20; Start 03/17/17 at 13:30; Stop 03/17/17 at 13:59; Status DC Ondansetron HCl (Zofran) 4 mg PRN Q8HRS PRN IV NAUSEA/VOMITING; Start at 13:30; Stop 03/18/17 at 13:29; Status DC Morphine Sulfate 2 mg PRN Q2HR PRN IV PAIN; Start 03/17/17 at 13:30; Stop at 13:29; Status DC Dextrose (Dextrose 50%-Water Syringe) 12.5 gm PRN Q15MIN PRN IV SEE COMMENTS; Start 03/17/17 at 15:00 Allopurinol (Zyloprim) 100 mg DAILY PO Last administered on 03/22/17 09:57; Start 03/18/17 at 09:00 Atorvastatin Calcium (Lipitor) 10 mg 3X/WEEK PO Last administered on 09:23; Start 03/18/17 at 09:00 Baclofen (Lioresal) 10 mg TID PO Last administered on 03/22/17 09:54; Start 03/17/17 at 21:00 Metformin HCl (Glucophage) 500 mg BIDWMEALS PO Last administered on 03/20/17 09:24; Start 03/17/17 at 17:00; Stop 03/20/17 at 11:29; Status DC Non-Formulary Medication 50 mg DAILY PO ; Start 03/18/17 at 09:00; Status UNV Pantoprazole Sodium (Protonix) 40 mg DAILYAC PO Last administered on 09:54; Start 03/18/17 at 07:30 Oxybutynin Chloride (Ditropan) 5 mg [id number] PO Last administered on 03/22/17 09:54; Start 03/17/17 at 21:00 Potassium Chloride/Dextrose/ Sod Cl 1,000 ml @ 50 mls/hr Q20H IV Last administered on 03/19/17 14:30; Start 03/17/17 at 22:30; Stop 03/19/17 at 23 :15; Status DC Cefepime HCl 1 gm/ Dextrose 50 ml @ 100 mls/hr Q8HRS IV ; Start 03/18/17 at 09 :15; Stop 03/18/17 at 09:34; Status DC Linezolid (Zyvox) 600 mg BID PO Last administered on 03/19/17 08:59; Start 03/18/17 at 09:15; Stop 03/19/17 at 11:17; Status DC Cefepime HCl (Maxipime) 1 gm Q8HRS IVP Last administered on 03/19/17 08:44; Start 03/18/17 at 10:00; Stop 03/19/17 at 11:17; Status DC Ceftriaxone Sodium 1 gm/ Dextrose 50 ml @ 100 mls/hr Q24H IV ; Start 03/19/17 at 11:30; Stop 03/19/17 at 11:30; Status DC Ceftriaxone Sodium (Rocephin) 1 gm Q24H IVP Last administered on 03/21/17 12: 25; Start 03/19/17 at 12:00; Stop 03/22/17 at 11:13; Status DC Ondansetron HCl (Zofran) 4 mg PRN Q6HRS PRN IV NAUSEA/VOMITING Last administered on 03/19/17 13:19; Start 03/19/17 at 13:15 Sodium Chloride 1,000 ml @ 200 mls/hr Q5H IV Last administered on 03/20/17 15:50; Start 03/19/17 at 23:30; Stop 03/20/17 at 20:59; Status DC Norepinephrine Bitartrate 250 ml @ As Directed STK-MED ONCE IV ; Start at 23:14; Stop 03/19/17 at 23:15; Status DC Linezolid 300 ml @ 300 mls/hr Q12HR IV Last administered on 03/22/17 09:57; Start 03/19/17 at 23:30 Norepinephrine Bitartrate 250 ml @ 0 mls/hr CONT PRN IV SEE I/O RECORD Last administered on 03/20/17 00:34; Start 03/20/17 at 00:15 Metoprolol Succinate (Toprol Xl) 25 mg 1X ONCE PO ; Start 03/20/17 at 09:00; Stop 03/20/17 at 09:01; Status DC Lactobacillus Rhamnosus (Culturelle) 1 cap BID PO Last administered on 09:54; Start 03/20/17 at 21:00 Iohexol (Omnipaque 300 Mg/ml) 75 ml 1X ONCE IV Last administered on 12:28; Start 03/20/17 at 11:30; Stop 03/20/17 at 11:31; Status DC Metformin HCl (Glucophage) 500 mg BIDWMEALS PO ; Start 03/22/17 at 17:00 Info (Do NOT chart on this entry -- for MONITORING) 1 each PRN DAILY PRN MC SEE COMMENTS; Start 03/20/17 at 11:30; Stop 03/22/17 at 11:29; Status DC Heparin Sodium (Porcine) (Heparin Sodium) 5,800 unit 1X ONCE IV Last administered on 03/20/17 13:46; Start 03/20/17 at 13:00; Stop 03/20/17 at 13 :01; Status DC Heparin Sodium/ Dextrose 500 ml @ 0 mls/hr CONT PRN IV SEE I/O RECORD Last administered on 03/22/17 09:56; Start 03/20/17 at 13:00 Heparin Sodium (Porcine) (Heparin Sodium) 2,200 unit PRN Q6HRS PRN IV FOR UFH LEVEL LESS THAN 0.2; Start 03/20/17 at 13:00 Heparin Sodium (Porcine) (Heparin Sodium) 1,100 unit PRN Q6HRS PRN IV FOR UFH LEVEL 0.2 - 0.29; Start 03/20/17 at 13:00 Warfarin Sodium (Coumadin Per Pharmacy) 1 each PRN DAILY PRN MC PER PROTOCOL Last administered on 03/22/17 08:23; Start 03/20/17 at 13:00 Warfarin Sodium (Coumadin) 5 mg 1X WARF ONCE PO Last administered on 15:50; Start 03/20/17 at 16:00; Stop 03/20/17 at 16:01; Status DC Sodium Chloride 1,000 ml @ 75 mls/hr [id number] IV Last administered on 08:27; Start 03/20/17 at 21:00; Stop 03/21/17 at 18:25; Status DC Docusate Sodium (Colace) 100 mg PRN DAILY PRN PO CONSTIPATION Last administered on 03/22/17 09:54; Start 03/21/17 at 10:00 Albuterol/ Ipratropium (Duoneb) 3 ml RTQID NEB Last administered on 03/22/17 11:34; Start 03/21/17 at 12:00 Warfarin Sodium (Coumadin) 6 mg 1X WARF ONCE PO Last administered on 16:49; Start 03/21/17 at 16:00; Stop 03/21/17 at 16:01; Status DC Throat Lozenges (Chloraseptic) 1 spray PRN Q2HR PRN PO SORE THROAT Last administered on 03/21/17 18:13; Start 03/21/17 at 17:45 Sodium Chloride 1,000 ml @ 75 mls/hr [id number] IV Last administered on 18:29; Start 03/21/17 at 18:30; Stop 03/22/17 at 07:49; Status DC Sodium Chloride 500 ml @ 250 mls/hr 1X ONCE IV Last administered on 18:29; Start 03/21/17 at 18:30; Stop 03/21/17 at 20:29; Status DC Alprazolam (Xanax) 0.25 mg PRN Q8HRS PRN PO ANXIETY / AGITATION Last administered on 03/22/17 10:11; Start 03/21/17 at 22:00 Albuterol Sulfate (Ventolin Neb Soln) 2.5 mg PRN Q4HRS PRN NEB SHORTNESS OF BREATH Last administered on 03/21/17 23:49; Start 03/21/17 at 23:30 Oxycodone/ Acetaminophen (Percocet 5/325) 1 tab PRN Q4HRS PRN PO PAIN Last administered on 03/22/17 04:52; Start 03/22/17 at 03:45 Warfarin Sodium (Coumadin) 6 mg 1X WARF ONCE PO ; Start 03/22/17 at 16:00; Stop 03/22/17 at 16:01 Throat Lozenges (Chloraseptic) 1 spray PRN Q2HR PRN PO SORE THROAT; Start at 09:30; Status UNV Sodium Chloride 500 ml @ 500 mls/hr 1X ONCE IV Last administered on 10:12; Start 03/22/17 at 10:30; Stop 03/22/17 at 11:29; Status DC Sodium Bicarbonate 100 meq 1X ONCE IV Last administered on 03/22/17 11:17; Start 03/22/17 at 11:00; Stop 03/22/17 at 11:02; Status DC Cefepime HCl 1 gm/ Dextrose 50 ml @ 100 mls/hr Q8HRS IV ; Start 03/22/17 at 14 :00; Stop 03/22/17 at 14:00; Status DC Cefepime HCl (Maxipime) 1 gm Q8HRS IVP ; Start 03/22/17 at 12:00 Active Scripts Active Reported Atorvastatin Calcium 10 Mg Tablet 1 Tab PO 3X/WEEK Allopurinol 100 Mg Tablet 1 Tab PO DAILY Omeprazole 20 Mg Capsule.dr 1 Cap PO DAILY Myrbetriq (Mirabegron) 50 Mg Tab.er.24h 50 Mg PO DAILY Baclofen 10 Mg Tablet 1 Tab PO TID Vesicare (Solifenacin Succinate) 10 Mg Tablet 1 Tab PO DAILY Metformin Hcl 500 Mg Tablet 500 Mg PO BIDWMEALS Allergies Allergies: Coded Allergies: amoxicillin (Verified Allergy, Mild, ITCH, 03/17/17) ROS Review of System Unable to obtain from the pt while she remains somewhat encephalopathic and on Bipap Physical Exam Physical Exam General Appearance: Awake Alert Oriented x 1- 2 In mod resp Distress Eyes: Sclera anicteric Conjunctiva Normal EN: No EN Drainage Mucous Memb. dryish on Biapp Neck: no JVD no JVP Supple no Thyromegaly CVS: S1 S2 no Murmur No Gallop No Rub + Ankle Edema; Tachy Resp: no Rales no Rhonchi + Acc. Muscle use; adequate AE jose manuel GI: BAS +ve NO Bruit Non Tender Non Distended : no CVA tenderness; no Suprapubic Tenderness SKIN: no Rashes Breast Exam deferred Mu.Sk: Adequate ROM in upper ext (although difficult to assess currenlty) no gross Muscle Atrophy Heme: Unable to palpate Obvious LAD no Splenomegaly NEURO: Unable to assess currently due to resp distress Psych: not obviously Depressed no Active hallucinations per se Vital Signs Vital Signs Date Time Temp Pulse Resp B/P (MAP) Pulse Ox O2 Delivery O2 Flow Rate FiO2 03/22/17 11:34 99 BiPAP/CPAP 03/22/17 11:00 131 24 131/70 (90) 03/22/17 08:00 98.6 98.6 03/22/17 08:00 3.0 Assessment & Plan Oliguria - suspect pre-renal from CAN, PE and possible hypovolemia - IVF as ordered Resp distress - on Bipap - reval after Bicarb Jose Manuel Ankle edema - not sure if this is due to MS; DVTs were -ve Met Acidosis - IV Bicarb as needed, IVF with bicarb as ordered multiple PEs - HypoMag - IV mag as ordered Discussed Plan of Care and prognosis etc. at length with family. Labs Labs Laboratory Tests Test 03/20/17 13:10 03/20/17 17:41 03/20/17 19:00 03/21/17 00:15 Prothrombin Time 14.1 SEC (11.7-14.0) Prothromb Time International Ratio 1.2 (0.8-1.1) Glucose (Fingerstick) 98 mg/dL (70-99) Heparin Anti-Xa Act, Unfractionated 1.10 IU/mL (0.30-0.70) 0.61 IU/mL (0.30-0.70) Test 03/21/17 06:00 03/21/17 12:20 03/22/17 03:00 White Blood Count 9.2 x10^3/uL (4.0-11.0) 14.5 x10^3/uL (4.0-11.0) Red Blood Count 3.74 x10^6/uL (3.50-5.40) 3.87 x10^6/uL (3.50-5.40) Hemoglobin 10.6 g/dL (12.0-15.5) 10.9 g/dL (12.0-15.5) Hematocrit 32.8 % (36.0-47.0) 33.8 % (36.0-47.0) Mean Corpuscular Volume 88 fL (79-100) 87 fL (79-100) Mean Corpuscular Hemoglobin 28 pg (25-35) 28 pg (25-35) Mean Corpuscular Hemoglobin Concent 32 g/dL (31-37) 32 g/dL (31-37) Red Cell Distribution Width 14.4 % (11.5-14.5) 14.5 % (11.5-14.5) Platelet Count 176 x10^3/uL (140-400) 197 x10^3/uL (140-400) Neutrophils (%) (Auto) 69 % (31-73) Lymphocytes (%) (Auto) 20 % (24-48) Monocytes (%) (Auto) 8 % (0-9) Eosinophils (%) (Auto) 3 % (0-3) Basophils (%) (Auto) 0 % (0-3) Neutrophils # (Auto) 6.3 x10^3uL (1.8-7.7) Lymphocytes # (Auto) 1.8 x10^3/uL (1.0-4.8) Monocytes # (Auto) 0.8 x10^3/uL (0.0-1.1) Eosinophils # (Auto) 0.2 x10^3/uL (0.0-0.7) Basophils # (Auto) 0.0 x10^3/uL (0.0-0.2) Prothrombin Time 14.8 SEC (11.7-14.0) 16.2 SEC (11.7-14.0) Prothromb Time International Ratio 1.2 (0.8-1.1) 1.4 (0.8-1.1) Heparin Anti-Xa Act, Unfractionated 0.62 IU/mL (0.30-0.70) 0.36 IU/mL (0.30-0.70) Sodium Level 139 mmol/L (136-145) 137 mmol/L (136-145) Potassium Level 4.0 mmol/L (3.5-5.1) 3.6 mmol/L (3.5-5.1) Chloride Level 107 mmol/L (98-107) 104 mmol/L (98-107) Carbon Dioxide Level 23 mmol/L (21-32) 14 mmol/L (21-32) Anion Gap 9 (6-14) 19 (6-14) Blood Urea Nitrogen 11 mg/dL (7-20) 14 mg/dL (7-20) Creatinine 0.9 mg/dL (0.6-1.0) 0.8 mg/dL (0.6-1.0) Estimated GFR (Cockcroft-Gault) 73.7 84.4 Glucose Level 129 mg/dL (70-99) 198 mg/dL (70-99) Calcium Level 8.1 mg/dL (8.5-10.1) 8.4 mg/dL (8.5-10.1) Magnesium Level 1.4 mg/dL (1.8-2.4) O2 Saturation 98 % (92-99) Arterial Blood pH 7.38 (7.35-7.45) Arterial Blood pCO2 at Patient Temp 25 mmHg (35-46) Arterial Blood pO2 at Patient Temp 109 mmHg (65-108) Arterial Blood HCO3 14 mmol/L (21-28) Arterial Blood Base Excess -9 mmol/L (-3-3) FiO2 60 BUN/Creatinine Ratio 18 (6-20) Total Bilirubin 0.2 mg/dL (0.2-1.0) Aspartate Amino Transf (AST/SGOT) 53 U/L (15-37) Alanine Aminotransferase (ALT/SGPT) 91 U/L (14-59) Alkaline Phosphatase 92 U/L (46-116) Total Protein 6.8 g/dL (6.4-8.2) Albumin 2.7 g/dL (3.4-5.0) Albumin/Globulin Ratio 0.7 (1.0-1.7) Laboratory Tests Test 03/21/17 12:20 03/22/17 03:00 O2 Saturation 98 % (92-99) Arterial Blood pH 7.38 (7.35-7.45) Arterial Blood pCO2 at Patient Temp 25 mmHg (35-46) Arterial Blood pO2 at Patient Temp 109 mmHg (65-108) Arterial Blood HCO3 14 mmol/L (21-28) Arterial Blood Base Excess -9 mmol/L (-3-3) FiO2 60 White Blood Count 14.5 x10^3/uL (4.0-11.0) Red Blood Count 3.87 x10^6/uL (3.50-5.40) Hemoglobin 10.9 g/dL (12.0-15.5) Hematocrit 33.8 % (36.0-47.0) Mean Corpuscular Volume 87 fL (79-100) Mean Corpuscular Hemoglobin 28 pg (25-35) Mean Corpuscular Hemoglobin Concent 32 g/dL (31-37) Red Cell Distribution Width 14.5 % (11.5-14.5) Platelet Count 197 x10^3/uL (140-400) Prothrombin Time 16.2 SEC (11.7-14.0) Prothromb Time International Ratio 1.4 (0.8-1.1) Heparin Anti-Xa Act, Unfractionated 0.36 IU/mL (0.30-0.70) Sodium Level 137 mmol/L (136-145) Potassium Level 3.6 mmol/L (3.5-5.1) Chloride Level 104 mmol/L (98-107) Carbon Dioxide Level 14 mmol/L (21-32) Anion Gap 19 (6-14) Blood Urea Nitrogen 14 mg/dL (7-20) Creatinine 0.8 mg/dL (0.6-1.0) Estimated GFR (Cockcroft-Gault) 84.4 BUN/Creatinine Ratio 18 (6-20) Glucose Level 198 mg/dL (70-99) Calcium Level 8.4 mg/dL (8.5-10.1) Total Bilirubin 0.2 mg/dL (0.2-1.0) Aspartate Amino Transf (AST/SGOT) 53 U/L (15-37) Alanine Aminotransferase (ALT/SGPT) 91 U/L (14-59) Alkaline Phosphatase 92 U/L (46-116) Total Protein 6.8 g/dL (6.4-8.2) Albumin 2.7 g/dL (3.4-5.0) Albumin/Globulin Ratio 0.7 (1.0-1.7) Images Images IMPRESSION: 1. Extensive bilateral pulmonary emboli. 2. Mild to moderate streaky atelectasis in both lungs. 3. Tiny pleural effusions. 4. Coronary artery disease. GIA DENSON MD Mar 22, 2017 12:05
[2017-03-22 12:11] LABS: FIO2 ABG 45
[2017-03-22] MEDS ORDERED: MAGNESIUM SULFATE 2GM 50 ML IV ONE (12:30)
[2017-03-22] MEDS ORDERED: MAGNESIUM SULFATE 2GM 50 ML IV PRN (12:30)
[2017-03-22] MEDS ORDERED: POTASSIUM CHLORIDE 20MEQ 50 ML IV PRN ×2 (12:30)
[2017-03-22] MEDS: CEFEPIME HCL IV Push 1 GM VIAL. IVP SCH ×2 (13:12→21:51)
--- NOTE | 2017-03-22 13:12 | RAD ---
AP PORTABLE CHEST Clinical Indication: resp distress, not improving. Comparison: AP chest, prior day. Findings: Atherosclerotic aortic arch. Cardiac size normal. Left lung is clear. Stable elevation of right hemidiaphragm. Mild right basilar atelectasis is similar. There is no pneumothorax. No pleural effusion is appreciated. There is no acute bone abnormality. IMPRESSION: Right basilar atelectasis.
[2017-03-22] MEDS: SODIUM BICARBONATE VIAL 150 MEQ in IV DEXTROSE 5% 1,000 ML IV SCH (13:13)
--- NOTE | 2017-03-22 13:39 | PDOC ---
PROGRESS NOTES Chief Complaint Chief Complaint acute pulmonary embolism, sepsis and hypotension 1. UTI: complicated with suprapubic cath broadspectrum Abx ; Dr Simon following, 2. Sepsis: fever, tachycardia persisting. no hypotension. recheck lactate 3. Leukocytosis: 4. Encephalopathy: toxic from uro sepsis. 5. DM2: 6. HLD: on statin 7. MS: strength OK History of Present Illness History of Present Illness tachycardia hasbeen about the same, marked tachypnea today, feels better, no event starting on heparin gtt for pulm embolism acute acidosis today, discussed with Dr. Pradhan, Abx changed, on bipap as needed Vitals Vitals Vital Signs Date Time Temp Pulse Resp B/P (MAP) Pulse Ox O2 Delivery O2 Flow Rate FiO2 03/22/17 13:00 126 18 140/86 (104) 100 BiPAP/CPAP 03/22/17 12:00 3.0 03/22/17 12:00 98.6 98.6 Physical Exam General: Alert, Oriented X3, Cooperative, No acute distress Heart: Regular rate (Sinus tach with PACs), Other (S3; 2/6 systolic murmur to LLS border ) Lungs: Other (few rhonchi) Abdomen: Soft, No tenderness Extremities: No cyanosis, Other (1+ bilateral ankle edema) Skin: No breakdown, No significant lesion Labs LABS Laboratory Tests Test 03/22/17 03:00 03/22/17 10:03 White Blood Count 14.5 x10^3/uL (4.0-11.0) Red Blood Count 3.87 x10^6/uL (3.50-5.40) Hemoglobin 10.9 g/dL (12.0-15.5) Hematocrit 33.8 % (36.0-47.0) Mean Corpuscular Volume 87 fL (79-100) Mean Corpuscular Hemoglobin 28 pg (25-35) Mean Corpuscular Hemoglobin Concent 32 g/dL (31-37) Red Cell Distribution Width 14.5 % (11.5-14.5) Platelet Count 197 x10^3/uL (140-400) Prothrombin Time 16.2 SEC (11.7-14.0) Prothromb Time International Ratio 1.4 (0.8-1.1) Heparin Anti-Xa Act, Unfractionated 0.36 IU/mL (0.30-0.70) Sodium Level 137 mmol/L (136-145) Potassium Level 3.6 mmol/L (3.5-5.1) Chloride Level 104 mmol/L (98-107) Carbon Dioxide Level 14 mmol/L (21-32) Anion Gap 19 (6-14) Blood Urea Nitrogen 14 mg/dL (7-20) Creatinine 0.8 mg/dL (0.6-1.0) Estimated GFR (Cockcroft-Gault) 84.4 BUN/Creatinine Ratio 18 (6-20) Glucose Level 198 mg/dL (70-99) Calcium Level 8.4 mg/dL (8.5-10.1) Total Bilirubin 0.2 mg/dL (0.2-1.0) Aspartate Amino Transf (AST/SGOT) 53 U/L (15-37) Alanine Aminotransferase (ALT/SGPT) 91 U/L (14-59) Alkaline Phosphatase 92 U/L (46-116) Total Protein 6.8 g/dL (6.4-8.2) Albumin 2.7 g/dL (3.4-5.0) Albumin/Globulin Ratio 0.7 (1.0-1.7) O2 Saturation 92 % (92-99) Arterial Blood pH 7.23 (7.35-7.45) Arterial Blood pCO2 at Patient Temp 25 mmHg (35-46) Arterial Blood pO2 at Patient Temp 79 mmHg (65-108) Arterial Blood HCO3 10 mmol/L (21-28) Arterial Blood Base Excess -16 mmol/L (-3-3) FiO2 45 Review of Systems Review of Systems feels tired and lethargic Assessment and Plan Assessmemt and Plan Problems Medical Problems: (1) Fever Status: Acute (2) Multiple sclerosis exacerbation Status: Acute (3) UTI (urinary tract infection) Status: Acute Problems: Comment Review of Relevant I have reviewed the following items kenan (where applicable) has been applied. Labs Laboratory Tests Test 03/20/17 17:41 03/20/17 19:00 03/21/17 00:15 03/21/17 06:00 Glucose (Fingerstick) 98 mg/dL (70-99) Heparin Anti-Xa Act, Unfractionated 1.10 IU/mL (0.30-0.70) 0.61 IU/mL (0.30-0.70) 0.62 IU/mL (0.30-0.70) White Blood Count 9.2 x10^3/uL (4.0-11.0) Red Blood Count 3.74 x10^6/uL (3.50-5.40) Hemoglobin 10.6 g/dL (12.0-15.5) Hematocrit 32.8 % (36.0-47.0) Mean Corpuscular Volume 88 fL (79-100) Mean Corpuscular Hemoglobin 28 pg (25-35) Mean Corpuscular Hemoglobin Concent 32 g/dL (31-37) Red Cell Distribution Width 14.4 % (11.5-14.5) Platelet Count 176 x10^3/uL (140-400) Neutrophils (%) (Auto) 69 % (31-73) Lymphocytes (%) (Auto) 20 % (24-48) Monocytes (%) (Auto) 8 % (0-9) Eosinophils (%) (Auto) 3 % (0-3) Basophils (%) (Auto) 0 % (0-3) Neutrophils # (Auto) 6.3 x10^3uL (1.8-7.7) Lymphocytes # (Auto) 1.8 x10^3/uL (1.0-4.8) Monocytes # (Auto) 0.8 x10^3/uL (0.0-1.1) Eosinophils # (Auto) 0.2 x10^3/uL (0.0-0.7) Basophils # (Auto) 0.0 x10^3/uL (0.0-0.2) Prothrombin Time 14.8 SEC (11.7-14.0) Prothromb Time International Ratio 1.2 (0.8-1.1) Sodium Level 139 mmol/L (136-145) Potassium Level 4.0 mmol/L (3.5-5.1) Chloride Level 107 mmol/L (98-107) Carbon Dioxide Level 23 mmol/L (21-32) Anion Gap 9 (6-14) Blood Urea Nitrogen 11 mg/dL (7-20) Creatinine 0.9 mg/dL (0.6-1.0) Estimated GFR (Cockcroft-Gault) 73.7 Glucose Level 129 mg/dL (70-99) Calcium Level 8.1 mg/dL (8.5-10.1) Magnesium Level 1.4 mg/dL (1.8-2.4) Test 03/21/17 12:20 03/22/17 03:00 03/22/17 10:03 O2 Saturation 98 % (92-99) 92 % (92-99) Arterial Blood pH 7.38 (7.35-7.45) 7.23 (7.35-7.45) Arterial Blood pCO2 at Patient Temp 25 mmHg (35-46) 25 mmHg (35-46) Arterial Blood pO2 at Patient Temp 109 mmHg (65-108) 79 mmHg (65-108) Arterial Blood HCO3 14 mmol/L (21-28) 10 mmol/L (21-28) Arterial Blood Base Excess -9 mmol/L (-3-3) -16 mmol/L (-3-3) FiO2 60 45 White Blood Count 14.5 x10^3/uL (4.0-11.0) Red Blood Count 3.87 x10^6/uL (3.50-5.40) Hemoglobin 10.9 g/dL (12.0-15.5) Hematocrit 33.8 % (36.0-47.0) Mean Corpuscular Volume 87 fL (79-100) Mean Corpuscular Hemoglobin 28 pg (25-35) Mean Corpuscular Hemoglobin Concent 32 g/dL (31-37) Red Cell Distribution Width 14.5 % (11.5-14.5) Platelet Count 197 x10^3/uL (140-400) Prothrombin Time 16.2 SEC (11.7-14.0) Prothromb Time International Ratio 1.4 (0.8-1.1) Heparin Anti-Xa Act, Unfractionated 0.36 IU/mL (0.30-0.70) Sodium Level 137 mmol/L (136-145) Potassium Level 3.6 mmol/L (3.5-5.1) Chloride Level 104 mmol/L (98-107) Carbon Dioxide Level 14 mmol/L (21-32) Anion Gap 19 (6-14) Blood Urea Nitrogen 14 mg/dL (7-20) Creatinine 0.8 mg/dL (0.6-1.0) Estimated GFR (Cockcroft-Gault) 84.4 BUN/Creatinine Ratio 18 (6-20) Glucose Level 198 mg/dL (70-99) Calcium Level 8.4 mg/dL (8.5-10.1) Total Bilirubin 0.2 mg/dL (0.2-1.0) Aspartate Amino Transf (AST/SGOT) 53 U/L (15-37) Alanine Aminotransferase (ALT/SGPT) 91 U/L (14-59) Alkaline Phosphatase 92 U/L (46-116) Total Protein 6.8 g/dL (6.4-8.2) Albumin 2.7 g/dL (3.4-5.0) Albumin/Globulin Ratio 0.7 (1.0-1.7) Laboratory Tests Test 03/22/17 03:00 03/22/17 10:03 White Blood Count 14.5 x10^3/uL (4.0-11.0) Red Blood Count 3.87 x10^6/uL (3.50-5.40) Hemoglobin 10.9 g/dL (12.0-15.5) Hematocrit 33.8 % (36.0-47.0) Mean Corpuscular Volume 87 fL (79-100) Mean Corpuscular Hemoglobin 28 pg (25-35) Mean Corpuscular Hemoglobin Concent 32 g/dL (31-37) Red Cell Distribution Width 14.5 % (11.5-14.5) Platelet Count 197 x10^3/uL (140-400) Prothrombin Time 16.2 SEC (11.7-14.0) Prothromb Time International Ratio 1.4 (0.8-1.1) Heparin Anti-Xa Act, Unfractionated 0.36 IU/mL (0.30-0.70) Sodium Level 137 mmol/L (136-145) Potassium Level 3.6 mmol/L (3.5-5.1) Chloride Level 104 mmol/L (98-107) Carbon Dioxide Level 14 mmol/L (21-32) Anion Gap 19 (6-14) Blood Urea Nitrogen 14 mg/dL (7-20) Creatinine 0.8 mg/dL (0.6-1.0) Estimated GFR (Cockcroft-Gault) 84.4 BUN/Creatinine Ratio 18 (6-20) Glucose Level 198 mg/dL (70-99) Calcium Level 8.4 mg/dL (8.5-10.1) Total Bilirubin 0.2 mg/dL (0.2-1.0) Aspartate Amino Transf (AST/SGOT) 53 U/L (15-37) Alanine Aminotransferase (ALT/SGPT) 91 U/L (14-59) Alkaline Phosphatase 92 U/L (46-116) Total Protein 6.8 g/dL (6.4-8.2) Albumin 2.7 g/dL (3.4-5.0) Albumin/Globulin Ratio 0.7 (1.0-1.7) O2 Saturation 92 % (92-99) Arterial Blood pH 7.23 (7.35-7.45) Arterial Blood pCO2 at Patient Temp 25 mmHg (35-46) Arterial Blood pO2 at Patient Temp 79 mmHg (65-108) Arterial Blood HCO3 10 mmol/L (21-28) Arterial Blood Base Excess -16 mmol/L (-3-3) FiO2 45 Microbiology 03/20/17 Blood Culture - Preliminary, Resulted NO GROWTH AFTER 2 DAYS 03/17/17 Urine Culture - Final, Complete 03/17/17 Urine Culture Result 1 (VIRGIE) - Final, Complete Medications Current Medications Sodium Chloride 1,000 ml @ 1,000 mls/hr 1X ONCE IV Last administered on 03/17 12:30; Start 03/17/17 at 12:30; Stop 03/17/17 at 13:29; Status DC Acetaminophen (Tylenol) 1,000 mg 1X ONCE PO Last administered on 03/17/17 13 :21; Start 03/17/17 at 12:30; Stop 03/17/17 at 12:31; Status DC Ceftriaxone Sodium 50 ml @ 100 mls/hr 1X ONCE IV Last administered on 14:20; Start 03/17/17 at 13:30; Stop 03/17/17 at 13:59; Status DC Ondansetron HCl (Zofran) 4 mg PRN Q8HRS PRN IV NAUSEA/VOMITING; Start at 13:30; Stop 03/18/17 at 13:29; Status DC Morphine Sulfate 2 mg PRN Q2HR PRN IV PAIN; Start 03/17/17 at 13:30; Stop at 13:29; Status DC Dextrose (Dextrose 50%-Water Syringe) 12.5 gm PRN Q15MIN PRN IV SEE COMMENTS; Start 03/17/17 at 15:00 Allopurinol (Zyloprim) 100 mg DAILY PO Last administered on 03/22/17 09:57; Start 03/18/17 at 09:00 Atorvastatin Calcium (Lipitor) 10 mg 3X/WEEK PO Last administered on 09:23; Start 03/18/17 at 09:00 Baclofen (Lioresal) 10 mg TID PO Last administered on 03/22/17 09:54; Start 03/17/17 at 21:00 Metformin HCl (Glucophage) 500 mg BIDWMEALS PO Last administered on 03/20/17 09:24; Start 03/17/17 at 17:00; Stop 03/20/17 at 11:29; Status DC Non-Formulary Medication 50 mg DAILY PO ; Start 03/18/17 at 09:00; Status UNV Pantoprazole Sodium (Protonix) 40 mg DAILYAC PO Last administered on 09:54; Start 03/18/17 at 07:30 Oxybutynin Chloride (Ditropan) 5 mg [id number] PO Last administered on 03/22/17 09:54; Start 03/17/17 at 21:00 Potassium Chloride/Dextrose/ Sod Cl 1,000 ml @ 50 mls/hr Q20H IV Last administered on 03/19/17 14:30; Start 03/17/17 at 22:30; Stop 03/19/17 at 23 :15; Status DC Cefepime HCl 1 gm/ Dextrose 50 ml @ 100 mls/hr Q8HRS IV ; Start 03/18/17 at 09 :15; Stop 03/18/17 at 09:34; Status DC Linezolid (Zyvox) 600 mg BID PO Last administered on 03/19/17 08:59; Start 03/18/17 at 09:15; Stop 03/19/17 at 11:17; Status DC Cefepime HCl (Maxipime) 1 gm Q8HRS IVP Last administered on 03/19/17 08:44; Start 03/18/17 at 10:00; Stop 03/19/17 at 11:17; Status DC Ceftriaxone Sodium 1 gm/ Dextrose 50 ml @ 100 mls/hr Q24H IV ; Start 03/19/17 at 11:30; Stop 03/19/17 at 11:30; Status DC Ceftriaxone Sodium (Rocephin) 1 gm Q24H IVP Last administered on 03/21/17 12: 25; Start 03/19/17 at 12:00; Stop 03/22/17 at 11:13; Status DC Ondansetron HCl (Zofran) 4 mg PRN Q6HRS PRN IV NAUSEA/VOMITING Last administered on 03/19/17 13:19; Start 03/19/17 at 13:15 Sodium Chloride 1,000 ml @ 200 mls/hr Q5H IV Last administered on 03/20/17 15:50; Start 03/19/17 at 23:30; Stop 03/20/17 at 20:59; Status DC Norepinephrine Bitartrate 250 ml @ As Directed STK-MED ONCE IV ; Start at 23:14; Stop 03/19/17 at 23:15; Status DC Linezolid 300 ml @ 300 mls/hr Q12HR IV Last administered on 03/22/17 09:57; Start 03/19/17 at 23:30 Norepinephrine Bitartrate 250 ml @ 0 mls/hr CONT PRN IV SEE I/O RECORD Last administered on 03/20/17 00:34; Start 03/20/17 at 00:15 Metoprolol Succinate (Toprol Xl) 25 mg 1X ONCE PO ; Start 03/20/17 at 09:00; Stop 03/20/17 at 09:01; Status DC Lactobacillus Rhamnosus (Culturelle) 1 cap BID PO Last administered on 09:54; Start 03/20/17 at 21:00 Iohexol (Omnipaque 300 Mg/ml) 75 ml 1X ONCE IV Last administered on 12:28; Start 03/20/17 at 11:30; Stop 03/20/17 at 11:31; Status DC Metformin HCl (Glucophage) 500 mg BIDWMEALS PO ; Start 03/22/17 at 17:00; Stop 03/22/17 at 17:00; Status DC Info (Do NOT chart on this entry -- for MONITORING) 1 each PRN DAILY PRN MC SEE COMMENTS; Start 03/20/17 at 11:30; Stop 03/22/17 at 11:29; Status DC Heparin Sodium (Porcine) (Heparin Sodium) 5,800 unit 1X ONCE IV Last administered on 03/20/17 13:46; Start 03/20/17 at 13:00; Stop 03/20/17 at 13 :01; Status DC Heparin Sodium/ Dextrose 500 ml @ 0 mls/hr CONT PRN IV SEE I/O RECORD Last administered on 03/22/17 09:56; Start 03/20/17 at 13:00 Heparin Sodium (Porcine) (Heparin Sodium) 2,200 unit PRN Q6HRS PRN IV FOR UFH LEVEL LESS THAN 0.2; Start 03/20/17 at 13:00 Heparin Sodium (Porcine) (Heparin Sodium) 1,100 unit PRN Q6HRS PRN IV FOR UFH LEVEL 0.2 - 0.29; Start 03/20/17 at 13:00 Warfarin Sodium (Coumadin Per Pharmacy) 1 each PRN DAILY PRN MC PER PROTOCOL Last administered on 03/22/17 08:23; Start 03/20/17 at 13:00 Warfarin Sodium (Coumadin) 5 mg 1X WARF ONCE PO Last administered on 15:50; Start 03/20/17 at 16:00; Stop 03/20/17 at 16:01; Status DC Sodium Chloride 1,000 ml @ 75 mls/hr [id number] IV Last administered on 08:27; Start 03/20/17 at 21:00; Stop 03/21/17 at 18:25; Status DC Docusate Sodium (Colace) 100 mg PRN DAILY PRN PO CONSTIPATION Last administered on 03/22/17 09:54; Start 03/21/17 at 10:00 Albuterol/ Ipratropium (Duoneb) 3 ml RTQID NEB Last administered on 03/22/17 11:34; Start 03/21/17 at 12:00 Warfarin Sodium (Coumadin) 6 mg 1X WARF ONCE PO Last administered on 16:49; Start 03/21/17 at 16:00; Stop 03/21/17 at 16:01; Status DC Throat Lozenges (Chloraseptic) 1 spray PRN Q2HR PRN PO SORE THROAT Last administered on 03/21/17 18:13; Start 03/21/17 at 17:45 Sodium Chloride 1,000 ml @ 75 mls/hr [id number] IV Last administered on 18:29; Start 03/21/17 at 18:30; Stop 03/22/17 at 07:49; Status DC Sodium Chloride 500 ml @ 250 mls/hr 1X ONCE IV Last administered on 18:29; Start 03/21/17 at 18:30; Stop 03/21/17 at 20:29; Status DC Alprazolam (Xanax) 0.25 mg PRN Q8HRS PRN PO ANXIETY / AGITATION Last administered on 03/22/17 10:11; Start 03/21/17 at 22:00 Albuterol Sulfate (Ventolin Neb Soln) 2.5 mg PRN Q4HRS PRN NEB SHORTNESS OF BREATH Last administered on 03/21/17 23:49; Start 03/21/17 at 23:30 Oxycodone/ Acetaminophen (Percocet 5/325) 1 tab PRN Q4HRS PRN PO PAIN Last administered on 03/22/17 04:52; Start 03/22/17 at 03:45 Warfarin Sodium (Coumadin) 6 mg 1X WARF ONCE PO ; Start 03/22/17 at 16:00; Stop 03/22/17 at 16:01 Throat Lozenges (Chloraseptic) 1 spray PRN Q2HR PRN PO SORE THROAT; Start at 09:30; Status UNV Sodium Chloride 500 ml @ 500 mls/hr 1X ONCE IV Last administered on 10:12; Start 03/22/17 at 10:30; Stop 03/22/17 at 11:29; Status DC Sodium Bicarbonate 100 meq 1X ONCE IV Last administered on 03/22/17 11:17; Start 03/22/17 at 11:00; Stop 03/22/17 at 11:02; Status DC Cefepime HCl 1 gm/ Dextrose 50 ml @ 100 mls/hr Q8HRS IV ; Start 03/22/17 at 14 :00; Stop 03/22/17 at 14:00; Status DC Cefepime HCl (Maxipime) 1 gm Q8HRS IVP Last administered on 03/22/17 13:12; Start 03/22/17 at 12:00 Sodium Bicarbonate 150 meq/Dextrose 1,150 ml @ 75 mls/hr [id number] IV Last administered on 03/22/17 13:13; Start 03/22/17 at 12:30 Magnesium Sulfate/ Dextrose 50 ml @ 25 mls/hr ONCE ONCE IV Last administered on 03/22/17 13:00; Start 03/22/17 at 12:30; Stop 03/22/17 at 14:29 Magnesium Sulfate/ Dextrose 50 ml @ 25 mls/hr PRN DAILY PRN IV for Mag < 1.7 on am labs; Start 03/22/17 at 12:30 Potassium Chloride 50 ml @ 50 mls/hr PRN Q6HRS PRN IV For K < 3.7; Start 03/22 at 12:30 Potassium Chloride 50 ml @ 50 mls/hr PRN Q2HR PRN IV total of 40mEq for K < 3.5; Start 03/22/17 at 12:30 Active Scripts Active Reported Atorvastatin Calcium 10 Mg Tablet 1 Tab PO 3X/WEEK Allopurinol 100 Mg Tablet 1 Tab PO DAILY Omeprazole 20 Mg Capsule.dr 1 Cap PO DAILY Myrbetriq (Mirabegron) 50 Mg Tab.er.24h 50 Mg PO DAILY Baclofen 10 Mg Tablet 1 Tab PO TID Vesicare (Solifenacin Succinate) 10 Mg Tablet 1 Tab PO DAILY Metformin Hcl 500 Mg Tablet 500 Mg PO BIDWMEALS Vitals/I & O Vital Sign - Last 24 Hours 03/21/17 03/21/17 03/21/17 03/21/17 14:00 15:00 15:19 16:00 Pulse 123 128 Resp 22 22 B/P (MAP) 96/70 (79) 102/75 (84) Pulse Ox 99 94 95 O2 Delivery BiPAP/CPAP Nasal Cannula Nasal Cannula Nasal Cannula O2 Flow Rate 4.0 4.0 5.0 03/21/17 03/21/17 03/21/17 03/21/17 16:00 16:00 17:00 18:00 Temp 98.3 98.3 Pulse 137 135 135 Resp 21 19 18 B/P (MAP) 105/50 (68) 86/68 (74) 87/59 (68) Pulse Ox 94 95 95 O2 Delivery Nasal Cannula Nasal Cannula Nasal Cannula O2 Flow Rate 4.0 5.0 5.0 5.0 03/21/17 03/21/17 03/21/17 03/21/17 19:00 19:48 20:00 20:00 Temp 97.8 97.8 Pulse 132 130 Resp 22 21 B/P (MAP) 79/62 (68) 89/65 (73) Pulse Ox 97 95 97 O2 Delivery Nasal Cannula Nasal Cannula Nasal Cannula Nasal Cannula O2 Flow Rate 5.0 3.0 5.0 4.0 03/21/17 03/21/17 03/21/17 03/21/17 21:00 22:00 23:00 23:49 Pulse 132 128 126 Resp 24 28 B/P (MAP) 89/65 (73) 83/62 (69) 87/73 (78) Pulse Ox 96 95 94 95 O2 Delivery Nasal Cannula Nasal Cannula Nasal Cannula Nasal Cannula O2 Flow Rate 5.0 5.0 5.0 3.0 03/22/17 03/22/17 03/22/17 03/22/17 00:00 00:00 00:05 01:00 Temp 98.1 98.1 Pulse 126 130 Resp 21 B/P (MAP) 100/86 (91) 140/86 (104) Pulse Ox 94 94 94 O2 Delivery BiPAP/CPAP Bi-pap BiPAP/CPAP BiPAP/CPAP 03/22/17 03/22/17 03/22/17 03/22/17 02:00 03:00 03:20 03:52 Pulse 126 125 Resp 28 B/P (MAP) 125/74 (91) 140/69 (92) Pulse Ox 99 100 96 99 O2 Delivery BiPAP/CPAP BiPAP/CPAP BiPAP/CPAP BiPAP/CPAP 03/22/17 03/22/17 03/22/17 03/22/17 04:00 04:00 04:52 05:00 Temp 98.3 98.3 Pulse 124 121 Resp 25 30 B/P (MAP) 131/84 (100) 96/81 (86) Pulse Ox 100 100 100 O2 Delivery Bi-pap BiPAP/CPAP BiPAP/CPAP O2 Flow Rate 3.0 03/22/17 03/22/17 03/22/17 03/22/17 05:35 06:00 07:00 07:52 Pulse 120 120 Resp 25 21 B/P (MAP) 102/74 (83) 107/75 (86) Pulse Ox 99 99 100 97 O2 Delivery BiPAP/CPAP BiPAP/CPAP BiPAP/CPAP BiPAP/CPAP 03/22/17 03/22/17 03/22/17 03/22/17 08:00 08:00 08:00 09:00 Temp 98.6 98.6 Pulse 125 128 Resp 34 28 B/P (MAP) 119/87 (98) 124/80 (95) Pulse Ox 100 86 O2 Delivery Bi-pap BiPAP/CPAP BiPAP/CPAP O2 Flow Rate 3.0 03/22/17 03/22/17 03/22/17 03/22/17 10:00 10:40 11:00 11:34 Pulse 128 131 Resp 26 24 B/P (MAP) 119/92 (101) 131/70 (90) Pulse Ox 95 98 100 99 O2 Delivery BiPAP/CPAP BiPAP/CPAP BiPAP/CPAP BiPAP/CPAP 03/22/17 03/22/17 03/22/17 03/22/17 12:00 12:00 12:00 13:00 Temp 98.6 98.6 Pulse 128 126 Resp 18 18 B/P (MAP) 138/84 (102) 140/86 (104) Pulse Ox 100 100 O2 Delivery BiPAP/CPAP Bi-pap BiPAP/CPAP O2 Flow Rate 3.0 Intake and Output 03/21/17 03/21/17 03/22/17 15:00 23:00 07:00 Intake Total 765.6 ml 274.36 ml 1528 ml Output Total 555 ml 177 ml 201 ml Balance 210.6 ml 97.36 ml 1327 ml SHELBY SOW MD Mar 22, 2017 13:39
[2017-03-22] MEDS ORDERED: CEFEPIME HCL 1 GM in IV DEXTROSE 5% 50 ML IV SCH (14:00)
[2017-03-22] MEDS: PHENOL ORAL SPRAY 177ML BOTTLE. PO PRN (15:47)
[2017-03-22] MEDS ORDERED: WARFARIN 6 MG TABLET. PO ONE (16:00)
[2017-03-22] MEDS ORDERED: metFORMIN 500 MG TABLET PO SCH (17:00)
[2017-03-22] MEDS ORDERED: MORPHINE SULFATE 4 MG/ML DISP.SYRIN. IV PRN (20:15)
[2017-03-23] VITALS (24 sets, daily range): BP systolic 83–118; BP diastolic 58–84
[2017-03-23] MEDS: MORPHINE SULFATE 4 MG/ML DISP.SYRIN. IV PRN ×5 (00:55→22:58)
--- NOTE | 2017-03-23 01:29 | CONS ---
DATE OF CONSULTATION: 03/17/2017 PRIMARY CARE PHYSICIAN: Dr. Pickett. REASON FOR CONSULTATION: Oliguria. HISTORY OF PRESENT ILLNESS: The patient is a 77-year-old female with a history of multiple sclerosis and possible bladder issues for which she has had a suprapubic catheter placed. She presented to the ER with increased confusion on 03/17/2017. ____ she was also noted to have a fever of 103. The extent of her MS and functionality is not noted; however, in discussion with the nurses, it is noted that she is able to transfer out of bed to a chair/bedside commode to use bathroom on her own. During this timeframe, she has been in and out of the ICU and on regular floor where she has sustained a syncopal episode. She underwent a CTA on 02/17/2017, which showed extensive bilateral pulmonary emboli. She remains tachycardic currently. She was hypotensive as low as 79/62 on 03/21/2017, has documented other hypotensive episodes if they have occurred are not noted here. She has remained tachycardic throughout her hospitalization. Her fevers have broken and appears to have been treated for the same. Microbiology has not revealed growth in her blood cultures per se; however, greater than 2 organisms were noted in her urine culture and these are not been identified. She was also evaluated by ID, Cardiology and Pulmonary. She is currently on BiPAP. We were asked to see her due to decreased urine output on a transient basis. As documented, her urine output at least 03/21/2017, was adequate. She has received significant amount of fluids. She was noted to be short of breath and some amount of respiratory distress with most recent ABG of 7.38/25/109/14 on 60% FiO2 on the BiPAP. She remains do not resuscitate at this time. REVIEW OF SYSTEMS: As best attempted to obtain from the patient is negative for nausea, vomiting, diarrhea. Positive for shortness of breath, otherwise difficult to ascertain while she is on the BiPAP machine. GIA DENSON MD DR: FAWAD/eleanor JOB#: [id number] / [id number]
[2017-03-23] MEDS: SODIUM BICARBONATE VIAL 150 MEQ in IV DEXTROSE 5% 1,000 ML IV SCH (05:12)
[2017-03-23] MEDS: CEFEPIME HCL IV Push 1 GM VIAL. IVP SCH ×3 (05:13→21:30)
[2017-03-23 06:35] LABS: BASO % 0 % (0-3); EOS % 1 % (0-3); HEMATOCRIT 30.8 % (36.0-47.0); HEMOGLOBIN 10.1 g/dL (12.0-15.5); LYMPH % 9 % (24-48); MEAN CORPUSCULAR HEMOGLOBIN 29 pg (25-35); MEAN CORPUSCULAR HGB CONC 33 g/dL (31-37); MEAN CORPUSCULAR VOLUME 87 fL (79-100); MONO % 8 % (0-9); NEUT % 82 % (31-73); PLATELET COUNT 165 x10^3/uL (140-400); RED BLOOD COUNT 3.54 x10^6/uL (3.50-5.40); RED CELL DISTRIBUTION WIDTH 14.4 % (11.5-14.5); WHITE BLOOD COUNT 10.9 x10^3/uL (4.0-11.0)
[2017-03-23 06:59] LABS: ALBUMIN 2.4 g/dL (3.4-5.0); CALCIUM 8.5 mg/dL (8.5-10.1); CREATININE 0.9 mg/dL (0.6-1.0); GFR 73.7; PHOSPHORUS 1.8 mg/dL (2.6-4.7); POTASSIUM 3.9 mmol/L (3.5-5.1)
[2017-03-23 07:00] LABS: PROTHROMBIN TIME PATIENT 29.6 SEC (11.7-14.0)
[2017-03-23] MEDS: ALLOPURINOL 100 MG TABLET. PO SCH (08:04)
[2017-03-23] MEDS: OXYBUTYNIN CHLORIDE 5 MG TABLET PO SCH ×3 (08:04→21:00)
[2017-03-23] MEDS: PANTOPRAZOLE 40 MG TABLET.DR. PO SCH (08:04)
[2017-03-23] MEDS: LACTOBACILLUS RHAMNOSUS GG 1 CAPSULE. PO SCH ×2 (08:04→21:00)
[2017-03-23] MEDS: BACLOFEN 10 MG TABLET. PO SCH ×2 (08:04→13:08)
[2017-03-23] MEDS: ATORVASTATIN CALCIUM 10 MG TABLET. PO SCH (08:07)
--- NOTE | 2017-03-23 08:09 | PDOC ---
SUBJECTIVE ROS F/up for Oliguria Doing Same overall, BiPAP dependent CVS: no Orthopnea, no CP RESP: + SOB, ? PILLAI GI: no Nausea, no Vomiting : no Dysuria, no Urgency OBJECTIVE Vital Signs Vital Signs Date Time Temp Pulse Resp B/P (MAP) Pulse Ox O2 Delivery O2 Flow Rate FiO2 03/23/17 07:28 34 100 BiPAP/CPAP 03/23/17 06:00 120 113/76 (88) 03/23/17 05:00 97.0 97.0 03/22/17 16:00 3.0 I & 0 Intake and Output 03/23/17 07:00 Intake Total 4050.5 ml Output Total 580 ml Balance 3470.5 ml Intake Oral 75 ml IV Total 3975.5 ml Output Urine Total 580 ml PHYSICAL EXAM Physical Exam General Appearance: Awake Alert Oriented x 1- 2 In mod resp Distress Eyes: Sclera anicteric Conjunctiva Normal EN: No EN Drainage Mucous Memb. dryish on Biapp Neck: no JVD no JVP Supple no Thyromegaly CVS: S1 S2 no Murmur No Gallop No Rub + Ankle Edema; Tachy Resp: no Rales no Rhonchi + Acc. Muscle use; adequate AE jose manuel GI: BS +ve NO Bruit Non Tender Non Distended : no CVA tenderness; no Suprapubic Tenderness Assessment & Plan Oliguria - suspect pre-renal from CAN, PE and possible hypovolemia - slightly better with IVF as ordered Resp distress - on Bipap - reval after Bicarb Jose Manuel Ankle edema - not as bad today WAG Met / Lactic Acidosis - better after IV Bicarb multiple PEs - and associated resp failure, She is unable to take off Bipap long enough to eat a meal. hence TPN will be started Nutrition - TPN as ordered; son at bedside declines NGT for eneteral feeding HypoMag - resolved Low Phos - supplement as ordered, poor PO intake contributing Discussed Plan of Care and prognosis etc. at length with family COMMENT/RELEVANT DATA Meds Current Medications Medications (Trade) Dose Ordered Sig/Claudio Start Time Stop Time Status Last Admin Dose Admin Acetaminophen (Tylenol) 1,000 mg 1X ONCE 03/17/17 12:30 03/17/17 12:31 DC 03/17/17 13:21 1,000 MG Albuterol Sulfate (Ventolin Neb Soln) 2.5 mg PRN Q4HRS PRN 03/21/17 23:30 03/21/17 23:49 2.5 MG Albuterol/ Ipratropium (Duoneb) 3 ml RTQID 03/21/17 12:00 03/22/17 19:59 3 ML Allopurinol (Zyloprim) 100 mg DAILY 03/18/17 09:00 03/22/17 09:57 100 MG Alprazolam (Xanax) 0.25 mg PRN Q8HRS PRN 03/21/17 22:00 03/22/17 10:11 0.25 MG Atorvastatin Calcium (Lipitor) 10 mg 3X/WEEK 03/18/17 09:00 03/20/17 09:23 10 MG Baclofen (Lioresal) 10 mg TID 03/17/17 21:00 03/22/17 21:54 10 MG Cefepime HCl (Maxipime) 1 gm Q8HRS 03/22/17 12:00 03/23/17 05:13 1 GM Cefepime HCl 1 gm/ Dextrose 50 ml @ 100 mls/hr Q8HRS 03/22/17 14:00 03/22/17 14:00 DC Ceftriaxone Sodium 1 gm/ Dextrose 50 ml @ 100 mls/hr Q24H 03/19/17 11:30 03/19/17 11:30 DC Ceftriaxone Sodium (Rocephin) 1 gm Q24H 03/19/17 12:00 03/22/17 11:13 DC 03/21/17 12:25 1 GM Dextrose (Dextrose 50%-Water Syringe) 12.5 gm PRN Q15MIN PRN 03/17/17 15:00 Docusate Sodium (Colace) 100 mg PRN DAILY PRN 03/21/17 10:00 03/22/17 09:54 100 MG Heparin Sodium (Porcine) (Heparin Sodium) 1,100 unit PRN Q6HRS PRN 03/20/17 13:00 03/23/17 07:18 1,100 UNIT Heparin Sodium/ Dextrose 500 ml @ 0 mls/hr CONT PRN 03/20/17 13:00 03/22/17 09:56 18.9 MLS/HR Info (Do NOT chart on this entry -- for MONITORING) 1 each PRN DAILY PRN 03/20/17 11:30 03/22/17 11:29 DC Iohexol (Omnipaque 300 Mg/ml) 75 ml 1X ONCE 03/20/17 11:30 03/20/17 11:31 DC 03/20/17 12:28 75 ML Lactobacillus Rhamnosus (Culturelle) 1 cap BID 03/20/17 21:00 03/22/17 09:54 1 CAP Linezolid 300 ml @ 300 mls/hr Q12HR 03/19/17 23:30 03/22/17 21:51 300 MLS/HR Linezolid (Zyvox) 600 mg BID 03/18/17 09:15 03/19/17 11:17 DC 03/19/17 08:59 600 MG Lorazepam (Ativan) 2 mg PRN Q4HRS PRN 03/23/17 00:45 Magnesium Sulfate/ Dextrose 50 ml @ 25 mls/hr PRN DAILY PRN 03/22/17 12:30 Metformin HCl (Glucophage) 500 mg BIDWMEALS 03/22/17 17:00 03/22/17 17:00 DC Metoprolol Succinate (Toprol Xl) 25 mg 1X ONCE 03/20/17 09:00 03/20/17 09:01 DC Morphine Sulfate 4 mg PRN Q2HR PRN 03/23/17 00:45 03/23/17 06:32 4 MG Non-Formulary Medication 50 mg DAILY 03/18/17 09:00 UNV Norepinephrine Bitartrate 250 ml @ 0 mls/hr CONT PRN 03/20/17 00:15 03/20/17 00:34 9.375 MLS/HR Ondansetron HCl (Zofran) 4 mg PRN Q6HRS PRN 03/19/17 13:15 03/19/17 13:19 4 MG Oxybutynin Chloride (Ditropan) 5 mg [id number] 03/17/17 21:00 03/22/17 21:54 5 MG Oxycodone/ Acetaminophen (Percocet 5/325) 1 tab PRN Q4HRS PRN 03/22/17 03:45 03/22/17 04:52 1 TAB Pantoprazole Sodium (Protonix) 40 mg DAILYAC 03/18/17 07:30 03/22/17 09:54 40 MG Potassium Chloride/Dextrose/ Sod Cl 1,000 ml @ 50 mls/hr Q20H 03/17/17 22:30 03/19/17 23:15 DC 03/19/17 14:30 50 MLS/HR Potassium Chloride 50 ml @ 50 mls/hr PRN Q2HR PRN 03/22/17 12:30 Sodium Bicarbonate 150 meq/Dextrose 1,150 ml @ 75 mls/hr [id number] 03/22/17 12:30 03/23/17 05:12 75 MLS/HR Sodium Bicarbonate 100 meq 1X ONCE 03/22/17 11:00 03/22/17 11:02 DC 03/22/17 11:17 100 MEQ Sodium Chloride 500 ml @ 500 mls/hr 1X ONCE 03/22/17 10:30 03/22/17 11:29 DC 03/22/17 10:12 500 MLS/HR Throat Lozenges (Chloraseptic) 1 spray PRN Q2HR PRN 03/22/17 09:30 UNV Warfarin Sodium (Coumadin Per Pharmacy) 1 each PRN DAILY PRN 03/20/17 13:00 03/22/17 08:23 1 EACH Warfarin Sodium (Coumadin) 6 mg 1X WARF ONCE 03/22/17 16:00 03/22/17 16:01 DC 03/22/17 16:30 6 MG Lab Laboratory Tests Test 03/22/17 10:03 03/22/17 15:28 03/23/17 06:00 O2 Saturation 92 % (92-99) Arterial Blood pH 7.23 (7.35-7.45) Arterial Blood pCO2 at Patient Temp 25 mmHg (35-46) Arterial Blood pO2 at Patient Temp 79 mmHg (65-108) Arterial Blood HCO3 10 mmol/L (21-28) Arterial Blood Base Excess -16 mmol/L (-3-3) FiO2 45 Lactic Acid Level 4.4 mmol/L (0.4-2.0) 3.8 mmol/L (0.4-2.0) White Blood Count 10.9 x10^3/uL (4.0-11.0) Red Blood Count 3.54 x10^6/uL (3.50-5.40) Hemoglobin 10.1 g/dL (12.0-15.5) Hematocrit 30.8 % (36.0-47.0) Mean Corpuscular Volume 87 fL (79-100) Mean Corpuscular Hemoglobin 29 pg (25-35) Mean Corpuscular Hemoglobin Concent 33 g/dL (31-37) Red Cell Distribution Width 14.4 % (11.5-14.5) Platelet Count 165 x10^3/uL (140-400) Neutrophils (%) (Auto) 82 % (31-73) Lymphocytes (%) (Auto) 9 % (24-48) Monocytes (%) (Auto) 8 % (0-9) Eosinophils (%) (Auto) 1 % (0-3) Basophils (%) (Auto) 0 % (0-3) Neutrophils # (Auto) 9.0 x10^3uL (1.8-7.7) Lymphocytes # (Auto) 1.0 x10^3/uL (1.0-4.8) Monocytes # (Auto) 0.8 x10^3/uL (0.0-1.1) Eosinophils # (Auto) 0.1 x10^3/uL (0.0-0.7) Basophils # (Auto) 0.0 x10^3/uL (0.0-0.2) Prothrombin Time 29.6 SEC (11.7-14.0) Prothromb Time International Ratio 3.0 (0.8-1.1) Heparin Anti-Xa Act, Unfractionated 0.24 IU/mL (0.30-0.70) Sodium Level 136 mmol/L (136-145) Potassium Level 3.9 mmol/L (3.5-5.1) Chloride Level 103 mmol/L (98-107) Carbon Dioxide Level 25 mmol/L (21-32) Anion Gap 8 (6-14) Blood Urea Nitrogen 17 mg/dL (7-20) Creatinine 0.9 mg/dL (0.6-1.0) Estimated GFR (Cockcroft-Gault) 73.7 Glucose Level 229 mg/dL (70-99) Calcium Level 8.5 mg/dL (8.5-10.1) Phosphorus Level 1.8 mg/dL (2.6-4.7) Magnesium Level 2.2 mg/dL (1.8-2.4) Albumin 2.4 g/dL (3.4-5.0) GIA DENSON MD Mar 23, 2017 08:09
[2017-03-23] MEDS ORDERED: IV NORMAL SALINE 500ML BAG 500 ML IV PRN (08:15)
--- NOTE | 2017-03-23 08:18 | PDOC ---
Infectious Disease Note Subjective Subjective awake, off bipap, eating, says feeling little better ROS ROS no n/v/d/ some cough and sob + Vital Sign Vital Signs Vital Signs Date Time Temp Pulse Resp B/P (MAP) Pulse Ox O2 Delivery O2 Flow Rate FiO2 03/23/17 07:28 34 100 BiPAP/CPAP 03/23/17 06:00 120 113/76 (88) 03/23/17 05:00 97.0 97.0 03/22/17 16:00 3.0 Physical Exam PHYSICAL EXAM GENERAL: NAD, Alert HEENT: PERRL, OC/OP NECK: Supple, no JVD, no LN LUNGS: Clear HEART: S1S2, no gallop, no murmur ABD: Soft, NT, no organomegaly, no rebound EXT: No edema, no cyanosis WET MIXER: Alert, oriented to place and person SKIN: No rash IV: ok Labs Lab Laboratory Tests Test 03/22/17 10:03 03/22/17 15:28 03/23/17 06:00 O2 Saturation 92 % (92-99) Arterial Blood pH 7.23 (7.35-7.45) Arterial Blood pCO2 at Patient Temp 25 mmHg (35-46) Arterial Blood pO2 at Patient Temp 79 mmHg (65-108) Arterial Blood HCO3 10 mmol/L (21-28) Arterial Blood Base Excess -16 mmol/L (-3-3) FiO2 45 Lactic Acid Level 4.4 mmol/L (0.4-2.0) 3.8 mmol/L (0.4-2.0) White Blood Count 10.9 x10^3/uL (4.0-11.0) Red Blood Count 3.54 x10^6/uL (3.50-5.40) Hemoglobin 10.1 g/dL (12.0-15.5) Hematocrit 30.8 % (36.0-47.0) Mean Corpuscular Volume 87 fL (79-100) Mean Corpuscular Hemoglobin 29 pg (25-35) Mean Corpuscular Hemoglobin Concent 33 g/dL (31-37) Red Cell Distribution Width 14.4 % (11.5-14.5) Platelet Count 165 x10^3/uL (140-400) Neutrophils (%) (Auto) 82 % (31-73) Lymphocytes (%) (Auto) 9 % (24-48) Monocytes (%) (Auto) 8 % (0-9) Eosinophils (%) (Auto) 1 % (0-3) Basophils (%) (Auto) 0 % (0-3) Neutrophils # (Auto) 9.0 x10^3uL (1.8-7.7) Lymphocytes # (Auto) 1.0 x10^3/uL (1.0-4.8) Monocytes # (Auto) 0.8 x10^3/uL (0.0-1.1) Eosinophils # (Auto) 0.1 x10^3/uL (0.0-0.7) Basophils # (Auto) 0.0 x10^3/uL (0.0-0.2) Prothrombin Time 29.6 SEC (11.7-14.0) Prothromb Time International Ratio 3.0 (0.8-1.1) Heparin Anti-Xa Act, Unfractionated 0.24 IU/mL (0.30-0.70) Sodium Level 136 mmol/L (136-145) Potassium Level 3.9 mmol/L (3.5-5.1) Chloride Level 103 mmol/L (98-107) Carbon Dioxide Level 25 mmol/L (21-32) Anion Gap 8 (6-14) Blood Urea Nitrogen 17 mg/dL (7-20) Creatinine 0.9 mg/dL (0.6-1.0) Estimated GFR (Cockcroft-Gault) 73.7 Glucose Level 229 mg/dL (70-99) Calcium Level 8.5 mg/dL (8.5-10.1) Phosphorus Level 1.8 mg/dL (2.6-4.7) Magnesium Level 2.2 mg/dL (1.8-2.4) Albumin 2.4 g/dL (3.4-5.0) Micro BC neg Urine with staph and enterococcus Objective Assessment Respiratory failure, now on BiPAP UTI - POA Hypotension , off Levophed Fever - better Lactic acidosis Amoxicillin allergy - rash Acute Encephalopathy - better DM MS PE, bilat Plan Plan of Care Cont Zyvox and cefepime Procalcitonin 0.10 Repeat urine culture still pending f/u labs cont supportive care d/w family in detail URSZULA DENSON MD Mar 23, 2017 08:18
[2017-03-23] MEDS: IPRATRPIUM/ALBUTEROL 0.5/2.5MG 3 ML NEBU. NEB SCH ×4 (08:24→19:59)
[2017-03-23] MEDS: IV NORMAL SALINE 1000ML BAG 1,000 ML IV SCH ×2 (09:41→21:23)
[2017-03-23 09:53] LABS: HCO3 ABG 19 mmol/L (21-28); PCO2 ABG 28 mmHg (35-46); PH ABG 7.45 (7.35-7.45); PO2 ABG 103 mmHg (65-108); SAT O2 ABG 97 % (92-99)
[2017-03-23 09:54] LABS: FIO2 ABG 45
[2017-03-23] MEDS: POTASSIUM PHOSPHATE DIBASIC 13.6 MMOL in IV NORMAL SALINE 100ML 100 ML IV SCH ×3 (10:20→12:40)
--- NOTE | 2017-03-23 11:58 | PDOC ---
PULMONARY PROGRESS NOTES Subjective PT OFF BIPAP INCREASE RR AT TIMES CAROLE ANXIETY NO SURE IF SHE IS MORE SOA NOW VS TWO DAYS AGO Vitals Vital Signs Date Time Temp Pulse Resp B/P (MAP) Pulse Ox O2 Delivery O2 Flow Rate FiO2 03/23/17 11:31 38 99 BiPAP/CPAP 03/23/17 11:00 126 111/76 (88) 03/23/17 08:00 98.7 98.7 03/23/17 08:00 3.0 Comments APPEARS ANXIOUS TO ME General: Alert, Mild Distress Lungs: Clear Cardiovascular: S1, S2, Other (TACHY) Abdomen: Soft, Non-tender Neuro Exam: Alert, Oriented Extremities: No Edema Skin: Warm Labs Laboratory Tests Test 03/21/17 12:20 03/22/17 03:00 03/22/17 10:03 03/22/17 15:28 O2 Saturation 98 % (92-99) 92 % (92-99) Arterial Blood pH 7.38 (7.35-7.45) 7.23 (7.35-7.45) Arterial Blood pCO2 at Patient Temp 25 mmHg (35-46) 25 mmHg (35-46) Arterial Blood pO2 at Patient Temp 109 mmHg (65-108) 79 mmHg (65-108) Arterial Blood HCO3 14 mmol/L (21-28) 10 mmol/L (21-28) Arterial Blood Base Excess -9 mmol/L (-3-3) -16 mmol/L (-3-3) FiO2 60 45 White Blood Count 14.5 x10^3/uL (4.0-11.0) Red Blood Count 3.87 x10^6/uL (3.50-5.40) Hemoglobin 10.9 g/dL (12.0-15.5) Hematocrit 33.8 % (36.0-47.0) Mean Corpuscular Volume 87 fL (79-100) Mean Corpuscular Hemoglobin 28 pg (25-35) Mean Corpuscular Hemoglobin Concent 32 g/dL (31-37) Red Cell Distribution Width 14.5 % (11.5-14.5) Platelet Count 197 x10^3/uL (140-400) Prothrombin Time 16.2 SEC (11.7-14.0) Prothromb Time International Ratio 1.4 (0.8-1.1) Heparin Anti-Xa Act, Unfractionated 0.36 IU/mL (0.30-0.70) Sodium Level 137 mmol/L (136-145) Potassium Level 3.6 mmol/L (3.5-5.1) Chloride Level 104 mmol/L (98-107) Carbon Dioxide Level 14 mmol/L (21-32) Anion Gap 19 (6-14) Blood Urea Nitrogen 14 mg/dL (7-20) Creatinine 0.8 mg/dL (0.6-1.0) Estimated GFR (Cockcroft-Gault) 84.4 BUN/Creatinine Ratio 18 (6-20) Glucose Level 198 mg/dL (70-99) Calcium Level 8.4 mg/dL (8.5-10.1) Total Bilirubin 0.2 mg/dL (0.2-1.0) Aspartate Amino Transf (AST/SGOT) 53 U/L (15-37) Alanine Aminotransferase (ALT/SGPT) 91 U/L (14-59) Alkaline Phosphatase 92 U/L (46-116) Total Protein 6.8 g/dL (6.4-8.2) Albumin 2.7 g/dL (3.4-5.0) Albumin/Globulin Ratio 0.7 (1.0-1.7) Lactic Acid Level 4.4 mmol/L (0.4-2.0) Test 03/23/17 06:00 03/23/17 09:45 White Blood Count 10.9 x10^3/uL (4.0-11.0) Red Blood Count 3.54 x10^6/uL (3.50-5.40) Hemoglobin 10.1 g/dL (12.0-15.5) Hematocrit 30.8 % (36.0-47.0) Mean Corpuscular Volume 87 fL (79-100) Mean Corpuscular Hemoglobin 29 pg (25-35) Mean Corpuscular Hemoglobin Concent 33 g/dL (31-37) Red Cell Distribution Width 14.4 % (11.5-14.5) Platelet Count 165 x10^3/uL (140-400) Neutrophils (%) (Auto) 82 % (31-73) Lymphocytes (%) (Auto) 9 % (24-48) Monocytes (%) (Auto) 8 % (0-9) Eosinophils (%) (Auto) 1 % (0-3) Basophils (%) (Auto) 0 % (0-3) Neutrophils # (Auto) 9.0 x10^3uL (1.8-7.7) Lymphocytes # (Auto) 1.0 x10^3/uL (1.0-4.8) Monocytes # (Auto) 0.8 x10^3/uL (0.0-1.1) Eosinophils # (Auto) 0.1 x10^3/uL (0.0-0.7) Basophils # (Auto) 0.0 x10^3/uL (0.0-0.2) Prothrombin Time 29.6 SEC (11.7-14.0) Prothromb Time International Ratio 3.0 (0.8-1.1) Heparin Anti-Xa Act, Unfractionated 0.24 IU/mL (0.30-0.70) Sodium Level 136 mmol/L (136-145) Potassium Level 3.9 mmol/L (3.5-5.1) Chloride Level 103 mmol/L (98-107) Carbon Dioxide Level 25 mmol/L (21-32) Anion Gap 8 (6-14) Blood Urea Nitrogen 17 mg/dL (7-20) Creatinine 0.9 mg/dL (0.6-1.0) Estimated GFR (Cockcroft-Gault) 73.7 Glucose Level 229 mg/dL (70-99) Lactic Acid Level 3.8 mmol/L (0.4-2.0) Calcium Level 8.5 mg/dL (8.5-10.1) Phosphorus Level 1.8 mg/dL (2.6-4.7) Magnesium Level 2.2 mg/dL (1.8-2.4) Albumin 2.4 g/dL (3.4-5.0) O2 Saturation 97 % (92-99) Arterial Blood pH 7.45 (7.35-7.45) Arterial Blood pCO2 at Patient Temp 28 mmHg (35-46) Arterial Blood pO2 at Patient Temp 103 mmHg (65-108) Arterial Blood HCO3 19 mmol/L (21-28) Arterial Blood Base Excess -4 mmol/L (-3-3) FiO2 45 Laboratory Tests Test 03/22/17 15:28 03/23/17 06:00 03/23/17 09:45 Lactic Acid Level 4.4 mmol/L (0.4-2.0) 3.8 mmol/L (0.4-2.0) White Blood Count 10.9 x10^3/uL (4.0-11.0) Red Blood Count 3.54 x10^6/uL (3.50-5.40) Hemoglobin 10.1 g/dL (12.0-15.5) Hematocrit 30.8 % (36.0-47.0) Mean Corpuscular Volume 87 fL (79-100) Mean Corpuscular Hemoglobin 29 pg (25-35) Mean Corpuscular Hemoglobin Concent 33 g/dL (31-37) Red Cell Distribution Width 14.4 % (11.5-14.5) Platelet Count 165 x10^3/uL (140-400) Neutrophils (%) (Auto) 82 % (31-73) Lymphocytes (%) (Auto) 9 % (24-48) Monocytes (%) (Auto) 8 % (0-9) Eosinophils (%) (Auto) 1 % (0-3) Basophils (%) (Auto) 0 % (0-3) Neutrophils # (Auto) 9.0 x10^3uL (1.8-7.7) Lymphocytes # (Auto) 1.0 x10^3/uL (1.0-4.8) Monocytes # (Auto) 0.8 x10^3/uL (0.0-1.1) Eosinophils # (Auto) 0.1 x10^3/uL (0.0-0.7) Basophils # (Auto) 0.0 x10^3/uL (0.0-0.2) Prothrombin Time 29.6 SEC (11.7-14.0) Prothromb Time International Ratio 3.0 (0.8-1.1) Heparin Anti-Xa Act, Unfractionated 0.24 IU/mL (0.30-0.70) Sodium Level 136 mmol/L (136-145) Potassium Level 3.9 mmol/L (3.5-5.1) Chloride Level 103 mmol/L (98-107) Carbon Dioxide Level 25 mmol/L (21-32) Anion Gap 8 (6-14) Blood Urea Nitrogen 17 mg/dL (7-20) Creatinine 0.9 mg/dL (0.6-1.0) Estimated GFR (Cockcroft-Gault) 73.7 Glucose Level 229 mg/dL (70-99) Calcium Level 8.5 mg/dL (8.5-10.1) Phosphorus Level 1.8 mg/dL (2.6-4.7) Magnesium Level 2.2 mg/dL (1.8-2.4) Albumin 2.4 g/dL (3.4-5.0) O2 Saturation 97 % (92-99) Arterial Blood pH 7.45 (7.35-7.45) Arterial Blood pCO2 at Patient Temp 28 mmHg (35-46) Arterial Blood pO2 at Patient Temp 103 mmHg (65-108) Arterial Blood HCO3 19 mmol/L (21-28) Arterial Blood Base Excess -4 mmol/L (-3-3) FiO2 45 Medications Active Scripts Medications Dose Route/Sig Max Daily Dose Days Date Category Atorvastatin Calcium 10 Mg Tablet 1 Tab PO 3X/WEEK 03/17/17 Reported Allopurinol 100 Mg Tablet 1 Tab PO DAILY 03/17/17 Reported Omeprazole 20 Mg Capsule.dr 1 Cap PO DAILY 03/17/17 Reported Myrbetriq (Mirabegron) 50 Mg Tab.er.24h 50 Mg PO DAILY 03/17/17 Reported Baclofen 10 Mg Tablet 1 Tab PO TID 03/17/17 Reported Vesicare (Solifenacin Succinate) 10 Mg Tablet 1 Tab PO DAILY 03/17/17 Reported Metformin Hcl 500 Mg Tablet 500 Mg PO BIDWMEALS 03/17/17 Reported Impression . 1. Syncopal episode with a brief CPR POA. Echo with elevated right-sided pressure and dilatation of the right ventricle and a markedly elevated right hemidiaphragm. CTA c/w bilateral extensive PE 2. Subjective fever in a patient who has multiple sclerosis and had a suprapubic catheter and early sepsis due UTI 3. Shock POA, could be combination of early sepsis versus 4. No significant history of tobacco use. 5. Fever secondary to infectious etiology. IMPRESSION: No evidence of deep vein thrombosis in the right or left lower extremity. Plan . PRN BIPAP NEEDS ANXIETY CONTROLLED 1. PT/OT IN AM 2. Heparin / Coumadin for PE, will need life long AC due to persistent immobility from MS 3. ANTIBX PER ID 4. Follow urine culture./ urosepsis 5. NEG VENOUS DOPP D/W FAMILY AT BEDSIDE SOWMYA SILVERIO MD Mar 23, 2017 11:58
[2017-03-23] MEDS ORDERED: SODIUM PHOSPHATE 20 MMOL in IV DEXTROSE 5% 250 ML IV ONE (12:00)
[2017-03-23] MEDS: TPN PER PHARMACY MC PRN ×2 (12:35→12:53)
--- NOTE | 2017-03-23 12:38 | PDOC ---
PROGRESS NOTES Chief Complaint Chief Complaint acute pulmonary embolism, sepsis and hypotension 1. UTI: complicated with suprapubic cath broadspectrum Abx ; Dr Simon following, 2. Sepsis: fever, tachycardia persisting. no hypotension. recheck lactate 3. Leukocytosis: 4. Encephalopathy: toxic from uro sepsis. 5. DM2: 6. HLD: on statin 7. MS: strength OK History of Present Illness History of Present Illness Pt. seen and examined in the ICU Tachycardia unchanged Tachypneic on bipap 45% Fio2 today On heparin ggt for PE Lower extremity edema Vitals Vitals Vital Signs Date Time Temp Pulse Resp B/P (MAP) Pulse Ox O2 Delivery O2 Flow Rate FiO2 03/23/17 11:31 38 99 BiPAP/CPAP 03/23/17 11:00 126 111/76 (88) 03/23/17 08:00 98.7 98.7 03/23/17 08:00 3.0 Physical Exam General: Alert, Oriented X3, Cooperative Heart: Regular rate (Sinus tach with PACs), Other (S3; 2/6 systolic murmur to LLS border ) Lungs: Clear, Other Abdomen: Soft, No tenderness Extremities: No cyanosis, Other (1+ bilateral ankle edema) Skin: No rashes, No breakdown, No significant lesion Labs LABS Laboratory Tests Test 03/22/17 15:28 03/23/17 06:00 03/23/17 09:45 Lactic Acid Level 4.4 mmol/L (0.4-2.0) 3.8 mmol/L (0.4-2.0) White Blood Count 10.9 x10^3/uL (4.0-11.0) Red Blood Count 3.54 x10^6/uL (3.50-5.40) Hemoglobin 10.1 g/dL (12.0-15.5) Hematocrit 30.8 % (36.0-47.0) Mean Corpuscular Volume 87 fL (79-100) Mean Corpuscular Hemoglobin 29 pg (25-35) Mean Corpuscular Hemoglobin Concent 33 g/dL (31-37) Red Cell Distribution Width 14.4 % (11.5-14.5) Platelet Count 165 x10^3/uL (140-400) Neutrophils (%) (Auto) 82 % (31-73) Lymphocytes (%) (Auto) 9 % (24-48) Monocytes (%) (Auto) 8 % (0-9) Eosinophils (%) (Auto) 1 % (0-3) Basophils (%) (Auto) 0 % (0-3) Neutrophils # (Auto) 9.0 x10^3uL (1.8-7.7) Lymphocytes # (Auto) 1.0 x10^3/uL (1.0-4.8) Monocytes # (Auto) 0.8 x10^3/uL (0.0-1.1) Eosinophils # (Auto) 0.1 x10^3/uL (0.0-0.7) Basophils # (Auto) 0.0 x10^3/uL (0.0-0.2) Prothrombin Time 29.6 SEC (11.7-14.0) Prothromb Time International Ratio 3.0 (0.8-1.1) Heparin Anti-Xa Act, Unfractionated 0.24 IU/mL (0.30-0.70) Sodium Level 136 mmol/L (136-145) Potassium Level 3.9 mmol/L (3.5-5.1) Chloride Level 103 mmol/L (98-107) Carbon Dioxide Level 25 mmol/L (21-32) Anion Gap 8 (6-14) Blood Urea Nitrogen 17 mg/dL (7-20) Creatinine 0.9 mg/dL (0.6-1.0) Estimated GFR (Cockcroft-Gault) 73.7 Glucose Level 229 mg/dL (70-99) Calcium Level 8.5 mg/dL (8.5-10.1) Phosphorus Level 1.8 mg/dL (2.6-4.7) Magnesium Level 2.2 mg/dL (1.8-2.4) Albumin 2.4 g/dL (3.4-5.0) O2 Saturation 97 % (92-99) Arterial Blood pH 7.45 (7.35-7.45) Arterial Blood pCO2 at Patient Temp 28 mmHg (35-46) Arterial Blood pO2 at Patient Temp 103 mmHg (65-108) Arterial Blood HCO3 19 mmol/L (21-28) Arterial Blood Base Excess -4 mmol/L (-3-3) FiO2 45 Review of Systems Review of Systems C/o fatigue C/o hunger Assessment and Plan Assessmemt and Plan Problems Medical Problems: (1) Fever Status: Acute (2) Multiple sclerosis exacerbation Status: Acute (3) UTI (urinary tract infection) Status: Acute Assessment Acute pulmonary embolism, Sepsis and hypotension 1. UTI: complicated with suprapubic cath broadspectrum Abx ; Dr Simon following, 2. Sepsis: fever, tachycardia persisting. no hypotension. recheck lactate 3. Leukocytosis: 4. Encephalopathy: toxic from uro sepsis. 5. DM2: 6. HLD: on statin 7. MS: strength OK A/P: Continue bipap Continue heparin ggt Continue potassium phosphate Continue ICU monitoring Continue home medications Recheck labs in am Consulted PT/OT Subspeciality input appreciated Problems: Comment Review of Relevant I have reviewed the following items kenan (where applicable) has been applied. Labs Laboratory Tests Test 03/21/17 12:20 03/22/17 03:00 03/22/17 10:03 03/22/17 15:28 O2 Saturation 98 % (92-99) 92 % (92-99) Arterial Blood pH 7.38 (7.35-7.45) 7.23 (7.35-7.45) Arterial Blood pCO2 at Patient Temp 25 mmHg (35-46) 25 mmHg (35-46) Arterial Blood pO2 at Patient Temp 109 mmHg (65-108) 79 mmHg (65-108) Arterial Blood HCO3 14 mmol/L (21-28) 10 mmol/L (21-28) Arterial Blood Base Excess -9 mmol/L (-3-3) -16 mmol/L (-3-3) FiO2 60 45 White Blood Count 14.5 x10^3/uL (4.0-11.0) Red Blood Count 3.87 x10^6/uL (3.50-5.40) Hemoglobin 10.9 g/dL (12.0-15.5) Hematocrit 33.8 % (36.0-47.0) Mean Corpuscular Volume 87 fL (79-100) Mean Corpuscular Hemoglobin 28 pg (25-35) Mean Corpuscular Hemoglobin Concent 32 g/dL (31-37) Red Cell Distribution Width 14.5 % (11.5-14.5) Platelet Count 197 x10^3/uL (140-400) Prothrombin Time 16.2 SEC (11.7-14.0) Prothromb Time International Ratio 1.4 (0.8-1.1) Heparin Anti-Xa Act, Unfractionated 0.36 IU/mL (0.30-0.70) Sodium Level 137 mmol/L (136-145) Potassium Level 3.6 mmol/L (3.5-5.1) Chloride Level 104 mmol/L (98-107) Carbon Dioxide Level 14 mmol/L (21-32) Anion Gap 19 (6-14) Blood Urea Nitrogen 14 mg/dL (7-20) Creatinine 0.8 mg/dL (0.6-1.0) Estimated GFR (Cockcroft-Gault) 84.4 BUN/Creatinine Ratio 18 (6-20) Glucose Level 198 mg/dL (70-99) Calcium Level 8.4 mg/dL (8.5-10.1) Total Bilirubin 0.2 mg/dL (0.2-1.0) Aspartate Amino Transf (AST/SGOT) 53 U/L (15-37) Alanine Aminotransferase (ALT/SGPT) 91 U/L (14-59) Alkaline Phosphatase 92 U/L (46-116) Total Protein 6.8 g/dL (6.4-8.2) Albumin 2.7 g/dL (3.4-5.0) Albumin/Globulin Ratio 0.7 (1.0-1.7) Lactic Acid Level 4.4 mmol/L (0.4-2.0) Test 03/23/17 06:00 03/23/17 09:45 White Blood Count 10.9 x10^3/uL (4.0-11.0) Red Blood Count 3.54 x10^6/uL (3.50-5.40) Hemoglobin 10.1 g/dL (12.0-15.5) Hematocrit 30.8 % (36.0-47.0) Mean Corpuscular Volume 87 fL (79-100) Mean Corpuscular Hemoglobin 29 pg (25-35) Mean Corpuscular Hemoglobin Concent 33 g/dL (31-37) Red Cell Distribution Width 14.4 % (11.5-14.5) Platelet Count 165 x10^3/uL (140-400) Neutrophils (%) (Auto) 82 % (31-73) Lymphocytes (%) (Auto) 9 % (24-48) Monocytes (%) (Auto) 8 % (0-9) Eosinophils (%) (Auto) 1 % (0-3) Basophils (%) (Auto) 0 % (0-3) Neutrophils # (Auto) 9.0 x10^3uL (1.8-7.7) Lymphocytes # (Auto) 1.0 x10^3/uL (1.0-4.8) Monocytes # (Auto) 0.8 x10^3/uL (0.0-1.1) Eosinophils # (Auto) 0.1 x10^3/uL (0.0-0.7) Basophils # (Auto) 0.0 x10^3/uL (0.0-0.2) Prothrombin Time 29.6 SEC (11.7-14.0) Prothromb Time International Ratio 3.0 (0.8-1.1) Heparin Anti-Xa Act, Unfractionated 0.24 IU/mL (0.30-0.70) Sodium Level 136 mmol/L (136-145) Potassium Level 3.9 mmol/L (3.5-5.1) Chloride Level 103 mmol/L (98-107) Carbon Dioxide Level 25 mmol/L (21-32) Anion Gap 8 (6-14) Blood Urea Nitrogen 17 mg/dL (7-20) Creatinine 0.9 mg/dL (0.6-1.0) Estimated GFR (Cockcroft-Gault) 73.7 Glucose Level 229 mg/dL (70-99) Lactic Acid Level 3.8 mmol/L (0.4-2.0) Calcium Level 8.5 mg/dL (8.5-10.1) Phosphorus Level 1.8 mg/dL (2.6-4.7) Magnesium Level 2.2 mg/dL (1.8-2.4) Albumin 2.4 g/dL (3.4-5.0) O2 Saturation 97 % (92-99) Arterial Blood pH 7.45 (7.35-7.45) Arterial Blood pCO2 at Patient Temp 28 mmHg (35-46) Arterial Blood pO2 at Patient Temp 103 mmHg (65-108) Arterial Blood HCO3 19 mmol/L (21-28) Arterial Blood Base Excess -4 mmol/L (-3-3) FiO2 45 Laboratory Tests Test 03/22/17 15:28 03/23/17 06:00 03/23/17 09:45 Lactic Acid Level 4.4 mmol/L (0.4-2.0) 3.8 mmol/L (0.4-2.0) White Blood Count 10.9 x10^3/uL (4.0-11.0) Red Blood Count 3.54 x10^6/uL (3.50-5.40) Hemoglobin 10.1 g/dL (12.0-15.5) Hematocrit 30.8 % (36.0-47.0) Mean Corpuscular Volume 87 fL (79-100) Mean Corpuscular Hemoglobin 29 pg (25-35) Mean Corpuscular Hemoglobin Concent 33 g/dL (31-37) Red Cell Distribution Width 14.4 % (11.5-14.5) Platelet Count 165 x10^3/uL (140-400) Neutrophils (%) (Auto) 82 % (31-73) Lymphocytes (%) (Auto) 9 % (24-48) Monocytes (%) (Auto) 8 % (0-9) Eosinophils (%) (Auto) 1 % (0-3) Basophils (%) (Auto) 0 % (0-3) Neutrophils # (Auto) 9.0 x10^3uL (1.8-7.7) Lymphocytes # (Auto) 1.0 x10^3/uL (1.0-4.8) Monocytes # (Auto) 0.8 x10^3/uL (0.0-1.1) Eosinophils # (Auto) 0.1 x10^3/uL (0.0-0.7) Basophils # (Auto) 0.0 x10^3/uL (0.0-0.2) Prothrombin Time 29.6 SEC (11.7-14.0) Prothromb Time International Ratio 3.0 (0.8-1.1) Heparin Anti-Xa Act, Unfractionated 0.24 IU/mL (0.30-0.70) Sodium Level 136 mmol/L (136-145) Potassium Level 3.9 mmol/L (3.5-5.1) Chloride Level 103 mmol/L (98-107) Carbon Dioxide Level 25 mmol/L (21-32) Anion Gap 8 (6-14) Blood Urea Nitrogen 17 mg/dL (7-20) Creatinine 0.9 mg/dL (0.6-1.0) Estimated GFR (Cockcroft-Gault) 73.7 Glucose Level 229 mg/dL (70-99) Calcium Level 8.5 mg/dL (8.5-10.1) Phosphorus Level 1.8 mg/dL (2.6-4.7) Magnesium Level 2.2 mg/dL (1.8-2.4) Albumin 2.4 g/dL (3.4-5.0) O2 Saturation 97 % (92-99) Arterial Blood pH 7.45 (7.35-7.45) Arterial Blood pCO2 at Patient Temp 28 mmHg (35-46) Arterial Blood pO2 at Patient Temp 103 mmHg (65-108) Arterial Blood HCO3 19 mmol/L (21-28) Arterial Blood Base Excess -4 mmol/L (-3-3) FiO2 45 Microbiology 03/20/17 Blood Culture - Preliminary, Resulted NO GROWTH AFTER 3 DAYS 03/20/17 Urine Culture - Preliminary, Resulted 03/20/17 Urine Culture Result 1 (VIRGIE) - Preliminary, Resulted 03/20/17 Urine Culture Result 2 (VIRGIE) - Preliminary, Resulted Medications Current Medications Sodium Chloride 1,000 ml @ 1,000 mls/hr 1X ONCE IV Last administered on 03/17 12:30; Start 03/17/17 at 12:30; Stop 03/17/17 at 13:29; Status DC Acetaminophen (Tylenol) 1,000 mg 1X ONCE PO Last administered on 03/17/17 13 :21; Start 03/17/17 at 12:30; Stop 03/17/17 at 12:31; Status DC Ceftriaxone Sodium 50 ml @ 100 mls/hr 1X ONCE IV Last administered on 14:20; Start 03/17/17 at 13:30; Stop 03/17/17 at 13:59; Status DC Ondansetron HCl (Zofran) 4 mg PRN Q8HRS PRN IV NAUSEA/VOMITING; Start at 13:30; Stop 03/18/17 at 13:29; Status DC Morphine Sulfate 2 mg PRN Q2HR PRN IV PAIN; Start 03/17/17 at 13:30; Stop at 13:29; Status DC Dextrose (Dextrose 50%-Water Syringe) 12.5 gm PRN Q15MIN PRN IV SEE COMMENTS; Start 03/17/17 at 15:00 Allopurinol (Zyloprim) 100 mg DAILY PO Last administered on 03/23/17 08:04; Start 03/18/17 at 09:00 Atorvastatin Calcium (Lipitor) 10 mg 3X/WEEK PO Last administered on 08:07; Start 03/18/17 at 09:00 Baclofen (Lioresal) 10 mg TID PO Last administered on 03/23/17 08:04; Start 03/17/17 at 21:00 Metformin HCl (Glucophage) 500 mg BIDWMEALS PO Last administered on 03/20/17 09:24; Start 03/17/17 at 17:00; Stop 03/20/17 at 11:29; Status DC Non-Formulary Medication 50 mg DAILY PO ; Start 03/18/17 at 09:00; Status UNV Pantoprazole Sodium (Protonix) 40 mg DAILYAC PO Last administered on 08:04; Start 03/18/17 at 07:30 Oxybutynin Chloride (Ditropan) 5 mg [id number] PO Last administered on 03/23/17 08:04; Start 03/17/17 at 21:00 Potassium Chloride/Dextrose/ Sod Cl 1,000 ml @ 50 mls/hr Q20H IV Last administered on 03/19/17 14:30; Start 03/17/17 at 22:30; Stop 03/19/17 at 23 :15; Status DC Cefepime HCl 1 gm/ Dextrose 50 ml @ 100 mls/hr Q8HRS IV ; Start 03/18/17 at 09 :15; Stop 03/18/17 at 09:34; Status DC Linezolid (Zyvox) 600 mg BID PO Last administered on 03/19/17 08:59; Start 03/18/17 at 09:15; Stop 03/19/17 at 11:17; Status DC Cefepime HCl (Maxipime) 1 gm Q8HRS IVP Last administered on 03/19/17 08:44; Start 03/18/17 at 10:00; Stop 03/19/17 at 11:17; Status DC Ceftriaxone Sodium 1 gm/ Dextrose 50 ml @ 100 mls/hr Q24H IV ; Start 03/19/17 at 11:30; Stop 03/19/17 at 11:30; Status DC Ceftriaxone Sodium (Rocephin) 1 gm Q24H IVP Last administered on 03/21/17 12: 25; Start 03/19/17 at 12:00; Stop 03/22/17 at 11:13; Status DC Ondansetron HCl (Zofran) 4 mg PRN Q6HRS PRN IV NAUSEA/VOMITING Last administered on 03/19/17 13:19; Start 03/19/17 at 13:15 Sodium Chloride 1,000 ml @ 200 mls/hr Q5H IV Last administered on 03/20/17 15:50; Start 03/19/17 at 23:30; Stop 03/20/17 at 20:59; Status DC Norepinephrine Bitartrate 250 ml @ As Directed STK-MED ONCE IV ; Start at 23:14; Stop 03/19/17 at 23:15; Status DC Linezolid 300 ml @ 300 mls/hr Q12HR IV Last administered on 03/23/17 08:07; Start 03/19/17 at 23:30 Norepinephrine Bitartrate 250 ml @ 0 mls/hr CONT PRN IV SEE I/O RECORD Last administered on 03/20/17 00:34; Start 03/20/17 at 00:15 Metoprolol Succinate (Toprol Xl) 25 mg 1X ONCE PO ; Start 03/20/17 at 09:00; Stop 03/20/17 at 09:01; Status DC Lactobacillus Rhamnosus (Culturelle) 1 cap BID PO Last administered on 08:04; Start 03/20/17 at 21:00 Iohexol (Omnipaque 300 Mg/ml) 75 ml 1X ONCE IV Last administered on 12:28; Start 03/20/17 at 11:30; Stop 03/20/17 at 11:31; Status DC Metformin HCl (Glucophage) 500 mg BIDWMEALS PO ; Start 03/22/17 at 17:00; Stop 03/22/17 at 17:00; Status DC Info (Do NOT chart on this entry -- for MONITORING) 1 each PRN DAILY PRN MC SEE COMMENTS; Start 03/20/17 at 11:30; Stop 03/22/17 at 11:29; Status DC Heparin Sodium (Porcine) (Heparin Sodium) 5,800 unit 1X ONCE IV Last administered on 03/20/17 13:46; Start 03/20/17 at 13:00; Stop 03/20/17 at 13 :01; Status DC Heparin Sodium/ Dextrose 500 ml @ 0 mls/hr CONT PRN IV SEE I/O RECORD Last administered on 03/22/17 09:56; Start 03/20/17 at 13:00 Heparin Sodium (Porcine) (Heparin Sodium) 2,200 unit PRN Q6HRS PRN IV FOR UFH LEVEL LESS THAN 0.2; Start 03/20/17 at 13:00 Heparin Sodium (Porcine) (Heparin Sodium) 1,100 unit PRN Q6HRS PRN IV FOR UFH LEVEL 0.2 - 0.29 Last administered on 03/23/17 07:18; Start 03/20/17 at 13:00 Warfarin Sodium (Coumadin Per Pharmacy) 1 each PRN DAILY PRN MC PER PROTOCOL Last administered on 03/23/17 09:29; Start 03/20/17 at 13:00 Warfarin Sodium (Coumadin) 5 mg 1X WARF ONCE PO Last administered on 15:50; Start 03/20/17 at 16:00; Stop 03/20/17 at 16:01; Status DC Sodium Chloride 1,000 ml @ 75 mls/hr [id number] IV Last administered on 08:27; Start 03/20/17 at 21:00; Stop 03/21/17 at 18:25; Status DC Docusate Sodium (Colace) 100 mg PRN DAILY PRN PO CONSTIPATION Last administered on 03/22/17 09:54; Start 03/21/17 at 10:00 Albuterol/ Ipratropium (Duoneb) 3 ml RTQID NEB Last administered on 03/23/17 08:24; Start 03/21/17 at 12:00 Warfarin Sodium (Coumadin) 6 mg 1X WARF ONCE PO Last administered on 16:49; Start 03/21/17 at 16:00; Stop 03/21/17 at 16:01; Status DC Throat Lozenges (Chloraseptic) 1 spray PRN Q2HR PRN PO SORE THROAT Last administered on 03/22/17 15:47; Start 03/21/17 at 17:45 Sodium Chloride 1,000 ml @ 75 mls/hr [id number] IV Last administered on 18:29; Start 03/21/17 at 18:30; Stop 03/22/17 at 07:49; Status DC Sodium Chloride 500 ml @ 250 mls/hr 1X ONCE IV Last administered on 18:29; Start 03/21/17 at 18:30; Stop 03/21/17 at 20:29; Status DC Alprazolam (Xanax) 0.25 mg PRN Q8HRS PRN PO ANXIETY / AGITATION Last administered on 03/22/17 10:11; Start 03/21/17 at 22:00 Albuterol Sulfate (Ventolin Neb Soln) 2.5 mg PRN Q4HRS PRN NEB SHORTNESS OF BREATH Last administered on 03/21/17 23:49; Start 03/21/17 at 23:30 Oxycodone/ Acetaminophen (Percocet 5/325) 1 tab PRN Q4HRS PRN PO PAIN Last administered on 03/22/17 04:52; Start 03/22/17 at 03:45 Warfarin Sodium (Coumadin) 6 mg 1X WARF ONCE PO Last administered on 16:30; Start 03/22/17 at 16:00; Stop 03/22/17 at 16:01; Status DC Throat Lozenges (Chloraseptic) 1 spray PRN Q2HR PRN PO SORE THROAT; Start at 09:30; Status UNV Sodium Chloride 500 ml @ 500 mls/hr 1X ONCE IV Last administered on 10:12; Start 03/22/17 at 10:30; Stop 03/22/17 at 11:29; Status DC Sodium Bicarbonate 100 meq 1X ONCE IV Last administered on 03/22/17 11:17; Start 03/22/17 at 11:00; Stop 03/22/17 at 11:02; Status DC Cefepime HCl 1 gm/ Dextrose 50 ml @ 100 mls/hr Q8HRS IV ; Start 03/22/17 at 14 :00; Stop 03/22/17 at 14:00; Status DC Cefepime HCl (Maxipime) 1 gm Q8HRS IVP Last administered on 03/23/17 05:13; Start 03/22/17 at 12:00 Sodium Bicarbonate 150 meq/Dextrose 1,150 ml @ 75 mls/hr [id number] IV Last administered on 03/23/17 05:12; Start 03/22/17 at 12:30; Stop 03/23/17 at 08 :14; Status DC Magnesium Sulfate/ Dextrose 50 ml @ 25 mls/hr ONCE ONCE IV Last administered on 03/22/17 13:00; Start 03/22/17 at 12:30; Stop 03/22/17 at 14:29; Status DC Magnesium Sulfate/ Dextrose 50 ml @ 25 mls/hr PRN DAILY PRN IV for Mag < 1.7 on am labs; Start 03/22/17 at 12:30 Potassium Chloride 50 ml @ 50 mls/hr PRN Q6HRS PRN IV For K < 3.7 Last administered on 03/22/17 15:47; Start 03/22/17 at 12:30 Potassium Chloride 50 ml @ 50 mls/hr PRN Q2HR PRN IV total of 40mEq for K < 3.5; Start 03/22/17 at 12:30 Morphine Sulfate 1 mg PRN Q2HR PRN IV PAIN SEVERE Last administered on 22:11; Start 03/22/17 at 20:15; Stop 03/23/17 at 00:45; Status DC Morphine Sulfate 2 mg PRN Q2HR PRN IV PAIN Last administered on 03/23/17 11: 31; Start 03/23/17 at 00:45 Morphine Sulfate 4 mg PRN Q2HR PRN IV PAIN Last administered on 03/23/17 06: 32; Start 03/23/17 at 00:45 Lorazepam (Ativan) 1 mg PRN Q4HRS PRN IV ANXIETY / AGITATION; Start 03/23/17 at 00:45 Lorazepam (Ativan) 2 mg PRN Q4HRS PRN IV ANXIETY / AGITATION; Start 03/23/17 at 00:45 Sodium Chloride 500 ml @ 0 mls/hr QID PRN IV UO< 30cc/hr over previous 6hrs; Start 03/23/17 at 08:15 Info 1 each PRN DAILY PRN MC SEE COMMENTS; Start 03/23/17 at 08:15 Potassium Phosphate 13.6 mmol/Sodium Chloride 104.5333 ml @ 51.221 m... Q2H IV Last administered on 03/23/17 11:24; Start 03/23/17 at 08:30; Stop at 14:29 Sodium Phosphate 20 mmol/Dextrose 256.6667 ml @ 64.167 m... 1X ONCE IV ; Start 03/23/17 at 12:00; Stop 03/23/17 at 15:59 Sodium Chloride 1,000 ml @ 75 mls/hr [id number] IV Last administered on 09:41; Start 03/23/17 at 08:15 Warfarin Sodium (Coumadin - No Dose Today) 1 each 1X WARF ONCE MC ; Start at 16:00; Stop 03/23/17 at 16:01 Active Scripts Active Reported Atorvastatin Calcium 10 Mg Tablet 1 Tab PO 3X/WEEK Allopurinol 100 Mg Tablet 1 Tab PO DAILY Omeprazole 20 Mg Capsule.dr 1 Cap PO DAILY Myrbetriq (Mirabegron) 50 Mg Tab.er.24h 50 Mg PO DAILY Baclofen 10 Mg Tablet 1 Tab PO TID Vesicare (Solifenacin Succinate) 10 Mg Tablet 1 Tab PO DAILY Metformin Hcl 500 Mg Tablet 500 Mg PO BIDWMEALS Vitals/I & O Vital Sign - Last 24 Hours 03/22/17 03/22/17 03/22/17 03/22/17 13:00 13:08 14:00 15:00 Pulse 126 123 123 Resp 18 18 21 B/P (MAP) 140/86 (104) 85/61 (69) 87/66 (73) Pulse Ox 100 95 100 100 O2 Delivery BiPAP/CPAP BiPAP/CPAP BiPAP/CPAP BiPAP/CPAP 03/22/17 03/22/17 03/22/17 03/22/17 16:00 16:00 16:00 16:19 Temp 98.6 98.6 Pulse 123 Resp 22 B/P (MAP) 116/71 (86) Pulse Ox 100 99 O2 Delivery BiPAP/CPAP Bi-pap BiPAP/CPAP O2 Flow Rate 3.0 03/22/17 03/22/17 03/22/17 03/22/17 17:00 18:00 18:27 19:00 Pulse 130 127 129 Resp 24 20 20 B/P (MAP) 118/71 (87) 110/98 (102) 113/73 (86) Pulse Ox 100 100 97 100 O2 Delivery BiPAP/CPAP BiPAP/CPAP BiPAP/CPAP BiPAP/CPAP 03/22/17 03/22/17 03/22/17 03/22/17 20:00 20:00 20:01 21:00 Temp 97.5 97.5 Pulse 130 129 Resp 20 20 B/P (MAP) 113/63 (80) 103/73 (83) Pulse Ox 100 97 100 O2 Delivery BiPAP/CPAP Bi-pap BiPAP/CPAP BiPAP/CPAP 03/22/17 03/22/17 03/22/17 03/22/17 22:00 22:11 22:41 22:59 Pulse 129 Resp 20 38 32 B/P (MAP) 111/70 (84) Pulse Ox 100 100 100 100 O2 Delivery BiPAP/CPAP BiPAP/CPAP BiPAP/CPAP BiPAP/CPAP 03/22/17 03/23/17 03/23/17 03/23/17 23:00 00:00 00:00 00:55 Temp 98.1 98.1 Pulse 128 126 Resp 22 22 20 B/P (MAP) 109/69 (82) 111/69 (83) Pulse Ox 100 100 O2 Delivery BiPAP/CPAP BiPAP/CPAP Bi-pap BiPAP/CPAP 03/23/17 03/23/17 03/23/17 03/23/17 01:00 01:25 01:27 02:00 Pulse 122 122 Resp 22 20 22 B/P (MAP) 89/59 (69) 109/76 (87) Pulse Ox 100 100 100 100 O2 Delivery BiPAP/CPAP BiPAP/CPAP BiPAP/CPAP BiPAP/CPAP 03/23/17 03/23/17 03/23/17 03/23/17 03:00 03:05 04:00 05:00 Temp 97.0 97.0 Pulse 122 120 122 Resp 18 20 20 B/P (MAP) 105/77 (86) 113/84 (94) 110/76 (87) Pulse Ox 100 100 100 100 O2 Delivery BiPAP/CPAP BiPAP/CPAP BiPAP/CPAP BiPAP/CPAP 03/23/17 03/23/17 03/23/17 03/23/17 05:00 05:14 06:00 06:32 Pulse 120 Resp 20 30 B/P (MAP) 113/76 (88) Pulse Ox 100 100 95 O2 Delivery Bi-pap BiPAP/CPAP BiPAP/CPAP BiPAP/CPAP 03/23/17 03/23/17 03/23/17 03/23/17 07:00 07:28 08:00 08:00 Pulse 122 Resp 34 34 B/P (MAP) 104/64 (77) Pulse Ox 100 100 100 O2 Delivery BiPAP/CPAP BiPAP/CPAP Bi-pap BiPAP/CPAP 03/23/17 03/23/17 03/23/17 03/23/17 08:00 08:00 09:00 10:00 Temp 98.7 98.7 Pulse 130 128 126 Resp 35 24 36 B/P (MAP) 107/72 (84) 114/64 (81) 106/69 (81) Pulse Ox 100 100 99 O2 Delivery BiPAP/CPAP BiPAP/CPAP BiPAP/CPAP O2 Flow Rate 3.0 03/23/17 03/23/17 11:00 11:31 Pulse 126 Resp 37 38 B/P (MAP) 111/76 (88) Pulse Ox 99 99 O2 Delivery BiPAP/CPAP BiPAP/CPAP Intake and Output 03/22/17 03/22/17 03/23/17 15:00 23:00 07:00 Intake Total 20 ml 2472.5 ml 1558 ml Output Total 150 ml 190 ml 240 ml Balance -130 ml 2282.5 ml 1318 ml BIJAN BILLINGSLEY III DO Mar 23, 2017 12:38
[2017-03-23] MEDS: HEPARIN 25,000UTS/500ML PREMIX 500 ML IV PRN (17:10)
[2017-03-23] MEDS ORDERED: ORPHENADRINE CITRATE 60 MG/2 ML VIAL. IV SCH (21:00)
[2017-03-23] MEDS ORDERED: TOTAL PARENTERAL NUTRITION IV SCH ×10 (22:00)
[2017-03-23] MEDS ORDERED: DEXTROSE 70% IV SCH ×10 (22:00)
[2017-03-23] MEDS ORDERED: [UNRECOGNIZED DRUG - OTHER] IV SCH ×10 (22:00)
[2017-03-23] MEDS ORDERED: AMINO ACIDS IV SCH ×10 (22:00)
[2017-03-23] MEDS: ALBUTEROL SULFATE 2.5 MG/3 ML NEBU. NEB PRN (23:46)
[2017-03-24] VITALS (7 sets, daily range): BP systolic 81–115; BP diastolic 50–67
[2017-03-24] MEDS: MORPHINE SULFATE 4 MG/ML DISP.SYRIN. IV PRN (02:59)
[2017-03-24] MEDS: CEFEPIME HCL IV Push 1 GM VIAL. IVP SCH (05:57)
[2017-03-24 07:06] LABS: HEMATOCRIT 32.9 % (36.0-47.0); HEMOGLOBIN 10.3 g/dL (12.0-15.5); RED BLOOD COUNT 3.6 x10^6/uL (3.50-5.40); RED CELL DISTRIBUTION WIDTH 15.5 % (11.5-14.5); WHITE BLOOD COUNT 14.1 x10^3/uL (4.0-11.0)
[2017-03-24 07:16] LABS: PROTHROMBIN TIME PATIENT 71.9 SEC (11.7-14.0)
[2017-03-24 07:21] LABS: ALBUMIN 2.3 g/dL (3.4-5.0); CALCIUM 7.8 mg/dL (8.5-10.1); CREATININE 1.8 mg/dL (0.6-1.0); GFR 33.1; PHOSPHORUS 6.7 mg/dL (2.6-4.7)
[2017-03-24 07:31] LABS: POTASSIUM 5.8 mmol/L (3.5-5.1)
[2017-03-24 08:19] LABS: INR 9.6 (0.8-1.1)
== END 2017-03-24 10:15 | disposition expired | DRG 871 ==
LOC: ER 12:13 → 6 SOUTH 12:26 → ER 14:47 → 1 WEST ICU 03-19 22:32
PROVIDERS: ADMIT Internal Medicine Hematology & Oncology; ATTEND Internal Medicine Hematology & Oncology
PROC: 5A12012 Performance of Cardiac Output, Single, Manual (ICD-10-PCS; principal; 2017-03-20)
PROC: 5A09357 Assistance with Respiratory Ventilation, Less than 24 Consecutive Hours, Continuous Positive Airway Pressure (ICD-10-PCS; 2017-03-21)
PROC: 5A09457 Assistance with Respiratory Ventilation, 24-96 Consecutive Hours, Continuous Positive Airway Pressure (ICD-10-PCS; 2017-03-22)
PROC: 5A09357 Assistance with Respiratory Ventilation, Less than 24 Consecutive Hours, Continuous Positive Airway Pressure (ICD-10-PCS; 2017-03-23)
DX: A41.9 Sepsis, unspecified organism (principal); G92 Toxic encephalopathy; J96.90 Respiratory failure, unspecified, unspecified whether with hypoxia or hypercapnia; I26.99 Other pulmonary embolism without acute cor pulmonale; R65.21 Severe sepsis with septic shock; E87.2 Acidosis; J98.11 Atelectasis; N39.0 Urinary tract infection, site not specified; E11.9 Type 2 diabetes mellitus without complications; E78.5 Hyperlipidemia, unspecified; F41.9 Anxiety disorder, unspecified; G35 Multiple sclerosis; I25.10 Atherosclerotic heart disease of native coronary artery without angina pectoris; I51.7 Cardiomegaly; K21.9 Gastro-esophageal reflux disease without esophagitis; K59.00 Constipation, unspecified; M19.90 Unspecified osteoarthritis, unspecified site; M10.9 Gout, unspecified; N31.9 Neuromuscular dysfunction of bladder, unspecified; Z66 Do not resuscitate; Z86.711 Personal history of pulmonary embolism; Z90.49 Acquired absence of other specified parts of digestive tract; Z99.3 Dependence on wheelchair; Z90.710 Acquired absence of both cervix and uterus; Z88.1 Allergy status to other antibiotic agents
CPT/HCPCS: 36415; 36569; 36600; 71010; 71275; 80048; 80053; 80069; 81001; 82805; 82962; 83605; 83735; 84145; 84484; 85007; 85025; 85027; 85520; 85610; 87040; 87086; 87186; 87641; 93005; 93306; 93970; 94640; 94660; J0610; J0690; J0692; J0696; J1644; J2020; J2060; J2270; J2360; J2405; J3475; J3480; J7030; J7040; J7060; J7613; J7620; Q9967; 92610; 97530; 99285-25